=== PATIENT | male | born 1955 | race Caucasian/White ===

== ENCOUNTER 2018-08-24 12:36 | Inpatient (IN) ==
[2018-08-24] MEDS ORDERED: 0.9 % Sodium Chloride 1,000 ML ONE ×2 (12:41→13:01)
[2018-08-24] MEDS ORDERED: Aspirin 81 MG TAB.CHEW ONE (12:41)
[2018-08-24] MEDS ORDERED: *HR* Heparin 5,000 UNIT/ML VIAL ONE (12:41)
[2018-08-24] MEDS ORDERED: Heparin 25,000 UNIT/500 ML D5W 25,000 UNIT/500 ML BAG IVC SCH ×2 (12:45→18:00)
[2018-08-24] MEDS ORDERED: Aspirin 81 MG TAB.CHEW PO ONE (12:45)
[2018-08-24] MEDS ORDERED: *HR* Heparin 5,000 UNIT/ML VIAL IVP PRN ×2 (12:45)
[2018-08-24] MEDS ORDERED: *HR* Heparin 5,000 UNIT/ML VIAL IVP ONE (12:45)
[2018-08-24] MEDS ORDERED: *HR* Ticagrelor 90 MG TABLET PO ONE (12:45)
[2018-08-24] MEDS: *HR* Ticagrelor 90 MG TABLET ONE ×2 (12:46→12:47)
[2018-08-24] MEDS ORDERED: Tirofiban 12.5 MG/250ML 12.5 MG/250 ML BAG ONE (12:50)
--- NOTE | 2018-08-24 12:53 | Cardiology History & Physical ---
Date of Encounter: 08/24/18 Time of Encounter: 12:50 Assessment and Plan (1) Anterior and lateral ST segment elevation Current Visit: Yes Status: Acute The assessment and plan as outlined above was discussed with the patient and/or family members who expressed understanding and agreement. All questions were answered. R/B/A d/w patient and he agrees to proceed with a LHC. No significant past medical hx, now in afib History of Present Illness Chief complaint: chest pain HPI: Mr. Rod is a 63 year old male presents with 3 hor ago chest pain RSCP associated with diaphoresis found to have anterolateral ST elevations. Emergent LHC discussed with patient and he agrees to proceed. R/B/A d/w patient and he agrees to proceed. History brief due to emergent nature of presentation. Past Med Surg Social Fam HX - Past Medical History Medical history: no medical history Psychiatric history: no psych history - Social History Smoking Status: Never smoker Alcohol use: none Drug use: none Medications and Allergies Allergy/AdvReac Type Severity Reaction Status Date / Time vancomycin Allergy Rash Verified 08/24/18 12:39 All Systems Review: The remainder of the systems were reviewed and are negative Physical Examination Vital Signs, Last 4 Hours Temp Pulse Resp BP Pulse Ox 08/24/18 12:39 97.9 F 150 22 149/96 99 General: Conversant, No Apparent Distress HEENT: Atraumatic, Normocephaly, Mucus Membranes Moist Neck: No JVD, Normal carotid pulses Cardiac: Reg Rate and Rhythm, Normal S1 and S2, No Murmur Lungs: Normal Breath Sounds, No Wheeze, Rales, Rhonchi Neuro: Alert and responsive, No focal deficits noted Abdomen: Soft, Non-Tender Skin: No rashes noted on visualized skin Musculoskeletal: No Chest Wall Tenderness Extremities: No Clubbing, No Cyanosis, No Edema, Normal Pulses
[2018-08-24] MEDS ORDERED: *HR* FentaNYL (PF) 100 MCG/2 ML VIAL ONE (12:58)
[2018-08-24] MEDS ORDERED: *HR* Midazolam HCl 2 MG/2 ML VIAL ONE (12:58)
[2018-08-24 13:00] LABS: Basophils # 0.1 K/mcL (0.0-0.2); Basophils % 0.5 %; Eosinophils % 0.3 %; Hematocrit 42.6 % (37.5-50.1); Hemoglobin 14.7 g/dL (12.9-16.9); Immature Granulocytes % 0.3 % (0-4); Lymphocytes # 2.6 K/mcL (0.6-4.6); Lymphocytes % 27.7 %; Mean Corpuscular HGB Conc 34.5 g/dL (31.6-35.5); Mean Corpuscular Hemoglobin 30.9 pg (28.0-33.3); Mean Corpuscular Volume 89.5 fL (83.0-100.0); Mean Platelet Volume 9.2 fL (9.4-12.4); Monocytes # 0.7 K/mcL (0.0-1.3); Monocytes % 7.7 %; Platelet Count 202 K/mcL (140-400); Red Blood Count 4.76 M/mcL (4.19-5.50); Red Cell Distribution Width 12.7 % (11.5-14.5); Segmented Neutrophils % 63.5 %
[2018-08-24] MEDS ORDERED: *HR* Heparin 10,000 UNIT/10 ML VIAL ONE (13:01)
[2018-08-24] MEDS ORDERED: ISOVUE-370 200 ML INFUS..BTL ONE (13:01)
[2018-08-24] MEDS ORDERED: Nitroglycerin 1,000 MCG/10 ML VIAL IV ONE (13:01)
[2018-08-24] MEDS ORDERED: Heparin 1,000 UNITS/500 mL 500 ML ONE (13:01)
--- NOTE | 2018-08-24 13:09 | Emergency Department Note ---
Disposition Clinical Impression: ST elevation myocardial infarction (STEMI) Qualifiers: Involved coronary artery: unspecified coronary artery Qualified Code(s): I21.3 - ST elevation (STEMI) myocardial infarction of unspecified site Disposition: Admitted As Inpatient Condition: Serious Time of Disposition: 12:30 Chest Pain HPI - General Chief Complaint: ED Chest Pain Stated Complaint: stemi Time Seen by Provider: 08/24/18 12:45 Source: patient, EMS Limitations: no limitations Vital Signs Reviewed: Yes Nursing Notes Reviewed: Yes - History of Present Illness HPI Narrative: 63-year-old male presents emergency Department with concerns of acute onset chest pain. Patient states pain started within the past 2-3 hours prior to arrival. Patient reports the pain as a pressure in the center of his chest that does not radiate. Patient denies similar pain in the past. Patient reports associated nausea and diaphoresis. Denies fever, chills, nausea, abdominal pain, diarrhea, vomiting. Patient pain improved with nitroglycerin which was given by EMS, it is now intermittent in the emergency department during the initial evaluation. The custom tailor was contacted immediately after the initial evaluation and was evaluated at bedside by Dr. Faustin. Patient EKG showed A. fib with RVR with ST elevations in leads I, AVL, V2, V3, V4, V5 and V6 with ST depressions in leads 2, 3, aVF. Patient denies history of hypertension, hyperlipidemia, diabetes. And denies history of cardiac disease in the past. Severity scale (1-10): 8 - Related Data Home Medications Medication Instructions Recorded Confirmed Naproxen Sodium [Aleve] 220 mg PO BID PRN 08/24/18 08/24/18 Allergies Allergy/AdvReac Type Severity Reaction Status Date / Time vancomycin Allergy See Verified 08/24/18 17:30 Comments All systems ED: reviewed and negative except as stated. Review of Systems: As Per HPI Chest Pain PMH - Past Medical History Medical history: Reports: no medical history Psychiatric history: Reports: no psych history - Social History Smoking Status: Never smoker Alcohol use: Reports: none Drug use: Reports: none Physical Exam General: Alert and in no acute distress Skin: Warm, dry, intact Head: Normocephalic and atraumatic Neck: Supple, trachea midline and no tenderness Cardiovascular: Irregularly irregular rhythm with a tachycardic rate no murmur, normal perfusion Respiratory: CTAB, no wheezing, cough, or respiratory distress Musculoskeletal: Normal strength, no tenderness, swelling or deformity GI: Soft, nontender, nondistended. Bowel sounds present Neuro: A&O to person, place, time and situation. No focal deficits noted on exam Psychiatric: cooperative and appropriate mood and affect. - General Limitations: no limitations General appearance: alert, in no apparent distress Course Vital Signs Temperature 97.9 F 08/24/18 12:39 Pulse Rate 150 08/24/18 12:39 Respiratory Rate 22 08/24/18 12:39 Blood Pressure 149/96 08/24/18 12:39 O2 Sat by Pulse Oximetry 98 08/24/18 12:39 Temperature 98.0 F 08/25/18 03:38 Pulse Rate 124 08/25/18 06:00 Respiratory Rate 22 08/25/18 06:00 Blood Pressure 104/67 08/25/18 06:00 O2 Sat by Pulse Oximetry 92 08/25/18 06:00 Oxygen Delivery Oxygen Delivery Room Air Chest Pain - MDM Narrative Medical decision making narrative: Dr. Faustin agreed the patient likely had acute STEMI and patient will be admitted to the Logistics Clerk. - Medical Records Medical records reviewed: Yes I reviewed the patient's medical records. - Lab Data Result diagrams: 08/25/18 01:03 08/25/18 01:03 Lab Results 08/24/18 08/24/18 08/24/18 Range/Units 12:41 12:41 12:41 WBC 9.4 (4.3-11.1) K/mcL RBC 4.76 (4.19-5.50) M/mcL Hgb 14.7 (12.9-16.9) g/dL Hct 42.6 (37.5-50.1) % MCV 89.5 (83.0-100.0) fL MCH 30.9 (28.0-33.3) pg MCHC 34.5 (31.6-35.5) g/dL RDW 12.7 (11.5-14.5) % Plt Count 202 (140-400) K/mcL MPV 9.2 L (9.4-12.4) fL Immature Gran % 0.3 (0-4) % Seg Neutrophils % 63.5 % Lymphocytes % 27.7 % Monocytes % 7.7 % Eosinophils % 0.3 % Basophils % 0.5 % Neutrophils # 6.0 (1.6-8.9) K/mcL Lymphocytes # 2.6 (0.6-4.6) K/mcL Monocytes # 0.7 (0.0-1.3) K/mcL Eosinophils # 0.0 (0.0-0.6) K/mcL Basophils # 0.1 (0.0-0.2) K/mcL Sodium 137 (136-145) mEq/L Potassium 3.7 (3.5-5.1) mEq/L Chloride 101 (98-107) mEq/L Carbon Dioxide 27 (23-29) mEq/L BUN 14 (8-23) mg/dL Creatinine 0.85 (0.70-1.30) mg/dL Est GFR ( Amer) > 60 (> 60) Est GFR (Non-Af Amer) > 60 (> 60) BUN/Creatinine Ratio 16 (6-26) Glucose 142 H (70-105) mg/dL Calculated Osmolality 287 (280-300) Calcium 10.0 (8.6-10.3) mg/dL Magnesium 2.2 (1.6-2.6) mg/dL Creatine Kinase 68 (30-223) Units/L Troponin I 0.05 H* (< 0.04) ng/mL Specimen Rejected Volume - EKG Data EKG attestation: Yes I reviewed and interpreted this EKG. EKG results narrative: Atrial fibrillation with a rate of [address] depressions in leads 1, aVL, V2, V3, V4, V5, V6 with ST depressions in leads 2, 3, aVF
[2018-08-24 13:19] LABS: BUN/Creatinine Ratio 16 (6-26); Blood Urea Nitrogen 14 mg/dL (8-23); Carbon Dioxide 27 mEq/L (23-29); Chloride 101 mEq/L (98-107); Creatine Kinase 68 Units/L (30-223); Glucose 142 mg/dL (70-105); Magnesium 2.2 mg/dL (1.6-2.6); Osmolality,Calculated 287 (280-300); Potassium 3.7 mEq/L (3.5-5.1); Sodium 137 mEq/L (136-145); eGFR For Non-African Americans > 60 (> 60)
[2018-08-24 13:21] LABS: Troponin I 0.05 ng/mL (< 0.04)
--- NOTE | 2018-08-24 13:32 | Electrocardiograph Report ---
[address] [place], [place] [address] Test Date: 2018-08-24 Pat Name: Luis A Rod Department: [id number] Room: 10 Gender: M Boat Operator: : 1955 Requested By: Travis Dietz Order Number: [id number] Reading MD: Biju Dubon Measurements Intervals [place] Rate: 157 P: [place]: QRS: -31 QRSD: 94 T: 51 QT: 292 QTc: 472 Interpretive Statements Acute STEMI, anterolateral infarct Atrial fibrillation with rapid V-rate Left axis deviation Electronically Signed On 08-24-2018 13:31:05 EST by Biju Dubon
[2018-08-24] MEDS ORDERED: Tirofiban 12.5 MG/250ML 12.5 MG/250 ML BAG IVC SCH (14:00)
--- NOTE | 2018-08-24 14:11 | Invasive Diagnostic Lab Proc ---
Name: Luis A Rod Date of Study: 08/24/2018 Date: 1955 Ht: 72.0in Medical Record#: [id number] Age: 63 Wt: 180.78lb Gender: Male BSA: 2.04 Order #: [id number] BMI: 24.52 Physicians Procedure Physician: Valeri Faustin MD Referring MD: Referring MD: Staff Name Position Time In [facility] Paulina RN Monitor 12:58 PM Yumiko Ward RT (R) 12:59 PM [facility], Deja RT (R) Scrub 12:59 PM Roverto Valverde RN Sheep Sorter 12:59 PM Young Mariee RN Nurse 12:59 PM Indications Indication STEMI Procedures Performed Procedure L HRT ARTERY/VENTRICLE ANGIO PRQ CARD REVASC OK 1 VSL PRQ CARDIAC ANGIO ADDL ART Pre-Procedure Checklist Informed consent is complete signed and on chart. H&P is on chart. ID band is on and ID verified with patient. Patient NPO for procedure The procedure was described for the patient and questions were answered. ECG is on chart. Rhythm: Atrial Fibrillation Plan of Care Patient will tolerate the procedure without complications. Adequate level of comfort will be maintained. Hemodynamics will remain stable Patient will recover from procedure without complications. Respiratory function will be maintained. Cardiac rhythm will remain stable. Patient temperature will be maintained. Patient and/or family have verbalized understanding of the procedure. Patient Education Chief Complaint/Reason for Test: Cardiac Cath Developmental Category: Adult (18-64 years) Developmentally Appropriate for Age: Yes Learning Barriers: None Education Needs: Procedure Education Method: Verbal Information Taught: Cardiac Cath Educational Evaluation: Able to repeat information Intravenous Access Time IV Size Location DC'd Fluid/Drip Rate Units RN 20g 1 07/31" Patent On Arrival Lt Arm 0.9NaCl ml/hr Allergies vancomycin Vital Signs Time BP (mmHg) HR (bpm) O2 Sat. RR (bpm) LOC 01:00 PM / % 4 = Oriented but drowsy 01:00 PM / % 4 = Oriented but drowsy 01:15 PM / % 4 = Oriented but drowsy 01:00 PM 165 / 115 128 97 % 22 01:05 PM 151 / 110 144 99 % 20 01:10 PM 140 / 92 132 93 % 32 01:15 PM 127 / 94 151 94 % 27 01:20 PM 126 / 108 118 95 % 21 01:25 PM 122 / 81 111 95 % 15 01:31 PM 87 / 63 125 91 % 44 01:33 PM 97 / 78 108 93 % 13 01:35 PM 110 / 84 106 95 % 10 01:40 PM 126 / 73 129 93 % 12 Procedural Medications Time Medication Dose Units Method Given By 12:59 PM Oxygen 2 L/min nasal cannula Roverto Valverde RN 12:59 PM Versed 1 mg Intravenous Roverto Valverde RN 12:59 PM Fentanyl 50 mcg Intravenous Roverto Valverde RN 01:02 PM Lidocaine 2% 10 ml Subcutaneous Valeri Faustin MD 01:04 PM Aggrastat Bolus: 42 ml Intravenous Roverto Valverde RN 01:05 PM Aggrastat 12.5mg/250ml 15 ml/hr Intravenous Roverto Valverde RN 01:08 PM Heparin 1000 units Intravenous Roverto Valverde RN 01:12 PM Fentanyl 25 mcg Intravenous Roverto Valverde RN 01:29 PM Nitroglycerin 100 mcg Intracoronary Michael Faustin MD Denis Score Preprocedure Postprocedure Activity 2- Moves 4 extremities sustained head lift Activity 2- Moves 4 extremities sustained head lift Circulation 2- SBP +/= 20 points of pre-anesthetic level Circulation 2- SBP +/= 20 points of pre-anesthetic level Consciousness 2- Awake and alert oriented x 3 Consciousness 2- Awake and alert oriented x 3 O2 Saturation 2- Able to maintain O2 satruation of 92% on room air O2 Saturation 2- Able to maintain O2 satruation of 92% on room air Respiratory 2- Able to deep breathe and cough well Respiratory 2- Able to deep breathe and cough well Total Score 10 Total Score 10 Contrast Agent: Isovue Diagnostic Contrast: 228 ml Total Contrast: 228 ml Fluoro Dose: 7523 mGy Activated Clotting Time Time Seconds to Clot 01:08 PM 218 01:37 PM 400 Procedure Log Time Note Enter By 12:58 PM Pt arrived to botany laboratory assistant 2 at 12:58 [facility] 12:58 PM Paulina Summers RN Position: Monitor Time in: 12:58 [facility] 12:59 PM Yumiko Ward RT (R) Position: Time in: 12:59 [facility] 12:59 PM Deja Quinonez RT (R) Position: Scrub [facility]: 12:59 [facility] 12:59 PM Roverto Valverde RN Position: Sheep Sorter Time in: 12:59 [facility] 12:59 PM Patient charges- ], Navilyst 3mm J, Pulse Oximetry and ACIST tubing and transducer [facility] 12:59 PM Young Mariee RN Position: Nurse Time in: :59 [facility] 12:59 PM Physician arrived 12:59 [facility] 12:59 PM Meet and greet completed [facility] :59 PM Sign in performed according to hospital policy. Informed consent was obtained. [facility] 12:59 PM Procedure start :59 [facility] 12:59 PM Hair removed from procedure site in procedure lab using clippers. Bilateral groin prepped with Chloraprep by Young Mariee RN, then patient was draped. Skin intact. [facility] 12:59 PM CathStat 12:59 PM Vitals capture started with the following parameters, Patient=Adult, Interval=5 min, Initial Kmjeoepa=482 mmHg, Deflation Rate=5 mmHg, Cuff placed on Right Arm 12:59 PM Time: 12:59 Oxygen on at 2 L/min per nasal cannula by Roverto Valverde RN [facility] 12:59 PM Time: 12:59 Versed 1 mg Intravenous Given by Roverto Valverde RN [facility] 12:59 PM Time: 12:59 Fentanyl 50 mcg Intravenous Given by Roverto Valverde RN [facility] 12:59 PM Recorded ECG: HU=893 Condition=Condition 1 01:00 PM Time: 13:00 Patient comfortable and pain free: Yes [facility] 01:00 PM Time: 13:00LOC: 4 = Oriented but drowsy [facility] 01:00 PM QT=882 bpm, MPSE=896/115 mmhg, SpO2=97.0 %, Resp=22 B/min 01:00 PM Clinical Presentation: [facility] or equivalent [facility] PM Critical cardiac patient with acute OK was brought emergently to the cardiac electroplating laborer for immediate coronary angiography and intervention if clinically indicated. [facility]00 PM Time out was performed according to hospital policy. Conscious sedation and anesthesia was achieved (see medication log with in this report above) [facility] 01:02 PM Time: 13:02 10 ml Lidocaine 2% to right groin Subcutaneous Given by Valeri Faustin MD nini 01:03 PM Micro-Introducer Kit utilized for sheath placement 01:03 PM Pressure channel 1 zeroed. 01:04 PM Access obtained by percutaneous puncture. 6Fr 10cm Terumo [place] sheath placed in right Femoral artery. [id number] 01:04 PM 6Fr XB LAD 3.5 Cordis guide catheter was used to cannulate the PCI vessel successfully. reused? No oumm 01:05 PM Time: 13:04 Aggrastat Bolus: 42 ml Intravenous Given by Roverto Valverde RN Yee pump oumm 01:05 PM WR=812 bpm, NPKV=117/110 mmhg, SpO2=99.0 %, Resp=20 B/min 01:05 PM Time: 13:05 Aggrastat 12.5mg/250ml 15 ml/hr Intravenous Given by Roverto Valverde RN Yee pump [email or web address] 01:06 PM Recorded Pressure: Ao, AX=673, Condition=Condition 1 (Aorta) Ao 124/88/104 01:07 PM .014 BMW Neal 190cm guide wire across target lesion- successful. reused? No 01:07 PM LCA angiography performed in multiple views. tsou 01:08 PM At 13:08 the ACT was 218 seconds. 01:08 PM Time: 13:08 Heparin 1000 units Intravenous Given by Roverto Valverde RN [email or web address] 01:09 PM 2.0 mm x 12 mm Emerge Monorail balloon across target lesion- successful. reused? No :10 PM Balloon inflated @ 6 yazmin for 3 seconds tsoumm 01:10 PM QJ=713 bpm, UQQR=202/92 mmhg, SpO2=93.0 %, Resp=32 B/min 01:10 PM Recorded Pressure: Ao, RK=598, Condition=Condition 1 (Aorta) Ao 110/80/93 01:10 PM Lesion found in Mid LAD. Pre Stenosis: 100 Pre PATRICIA Flow: 0: No Flow/No perfusion tsoumm 01:12 PM Time: 13:12 Fentanyl 25 mcg Intravenous Given by Roverto Valverde RN [email or web address] 01:13 PM .014 BMW Neal 190cm guide wire across target lesion- successful. reused? No tsoumm 01:15 PM KJ=538 bpm, GMAW=760/94 mmhg, SpO2=94.0 %, Resp=27 B/min 01:15 PM Time: 13:00LOC: 4 = Oriented but drowsy joaquin 01:15 PM Time: 13:00 Patient comfortable and pain free: Yes mm 01:20 PM VC=956 bpm, PMUL=983/108 mmhg, SpO2=95.0 %, Resp=21 B/min 01:23 PM Balloon inflated @ 6 yazmin for 10 seconds mm 01:23 PM Balloon catheter removed intact. 01:25 PM IF=697 bpm, KONM=759/81 mmhg, SpO2=95.0 %, Resp=15 B/min 01:26 PM 3.5mm x 16mm Synergy drug-eluting stent across target lesion- successful Lot #[id number] [email or web address] 01:26 PM wire removed from DIAG tsty 01:27 PM Stent deployed @ 9 yazmin for 6 seconds [email or web address] 01:27 PM Stent balloon reinflated @ 14 yazmin for 10 seconds mm 01:28 PM Stent delivery system removed intact. 01:29 PM Time: 13:29 Nitroglycerin 100 mcg Intracoronary Given by Michael Faustin MD ty 01:30 PM Time: 13:15 Patient comfortable and pain free: Yes 01:30 PM Time: 13:15LOC: 4 = Oriented but drowsy tsty 01:31 PM ZP=274 bpm, NIBP=87/63 mmhg, SpO2=91 %, Resp=44 B/min 01:32 PM Guide wire removed intact. 01:32 PM Guide catheter removed intact. joaquin 01:32 PM NIBP STAT measurement started. 01:33 PM MP=942 bpm, NIBP=97/78 mmhg, SpO2=93.0 %, Resp=13 B/min 01:34 PM Recorded Pressure: LV, AI=643, Condition=Condition 1 (Left Ventricle) LV 98/20/26 01:35 PM ZW=748 bpm, GGDZ=101/84 mmhg, SpO2=95.0 %, Resp=10 B/min 01:35 PM Recorded Pressure: LV, Ao, JA=630, Condition=Condition 1 (Left Ventricle) LV 87/39/45, (Aorta) Ao 83/53/71 01:36 PM 5Fr FR 4 catheter inserted over the wire [facility] 01:36 PM Catheter crossed the aortic valve and was selectively placed in the left ventricle. Pressures recorded on pullback for left heart catheterization. 01:36 PM Bolus angiogram of left Ventricle complete: 10 ml/sec for a total of 20 mls tsmm 01:36 PM RCA angiography performed in multiple views. 01:36 PM Recorded Pressure: Ao, BI=455, Condition=Condition 1 (Aorta) Ao 90/76/83 01:37 PM At 13:37 the ACT was 400 seconds. tsmm 01:37 PM Coronary Dominance: right ts 01:37 PM Catheter removed 01:38 PM Bolus angiogram of right Femoral complete: 2 ml/sec for a total of 4 mls ts 01:38 PM Procedure completed at 13:38 08/24/2018 01:38 PM Did you address PATRICIA flow and Dominance? Yes mm 01:39 PM Sign out completed: Radiation Dose 674.78 mGy, 7523.49 cGy/cm2 Fluoro Time: 9.0 Isovue 370 - 200ml contrast 228 ml given by Valeri Faustin MD. Complications: None. The patient was discharged out of the electroplating laborer in stable condition. Cardiac Rehab Consult needed: YesConfirmed administered medications: Yes 01:39 PM Isovue 370 - 200ml,2 Bottle(s) used. mm 01:40 PM EA=467 bpm, YOUX=486/73 mmhg, SpO2=93.0 %, Resp=12 B/min 01:40 PM Arterial sheath pulled, Angio-seal closure device used and was Successful [id number] S/N. tsoumm 01:40 PM Estimated Blood Loss: less than 20cc tsoummers 01:40 PM Post ECG Atrial Fibrillation tsoummers 01:40 PM Post Blood Pressure 126/73 tsoummers 01:40 PM Information taught Cardiac Cath, PCI, and Angioseal tsoummers 01:40 PM Education needs Procedure, Plan of Care, Disease Process, and Responsibilities of Patient in Care tsoummers 01:40 PM Learning barriers :None tsoummers 01:41 PM Education Methods Verbal tsoummers 01:41 PM Education evaluation Able to repeat information oumm 01:41 PM Site status No bleeding/hematoma - Rt Groin as reported by Sites, Deja RT (R) at 13:41 tsoummers 01:41 PM Opsite applied tsoumm 01:41 PM Plavix, Effient or Brilinta given Yes tsoummers 01:41 PM Delay to floor No tsoummers 01:41 PM Family placed in consult room. oumm 01:41 PM 180 brilinta administered in ED oummers 01:47 PM Mid/Distal Left Anterior Descending Coronary Artery and diagonal branches with 100% stenosis. If graft is supplying this area, 0 % stenosis tsoummers 01:47 PM Lesion found in 1st Diagonal. Pre Stenosis: 100 Pre PATRICIA Flow: 0: No Flow/No perfusion tsoummers 01:47 PM Lesion found in Proximal LAD. Pre Stenosis: 25 Pre PATRICIA Flow: tsoummers 01:54 PM Lesion found in Proximal RCA. Pre Stenosis: 25 Pre PATRICIA Flow: tsoummers 01:54 PM Lesion found in Right PDA. Pre Stenosis: 99 Pre PATRICIA Flow: tsoummers 01:54 PM Right Coronary, Right Posterior Descending Arteries with Right Posterolateral and Acute Marginal branches with 99 % stenosis. If graft is supplying this area, 0 % stenosis oumm 01:59 PM Report given to Mayela ROSEN [facility] PM [facility]: 13:59 [facility] Complications Complication None Hemodynamics Pressures Site Systolic/A Wave Diastolic/V Wave Mean AO 124 88 104 AO 110 80 93 LV 98 20 26 LV 87 39 45 AO 83 53 71 AO 90 76 83 Post Procedure Information Blood Pressure: 126/73 mmHg Rhythm: Atrial Fibrillation Post procedural instructions were given Closure Device Time Device Success/Fail 08/24/2018 1:40:00 PM Angio-Seal VIP Successful Site Checks Time Location Status Staff Sheath In? Note 01:41 PM Rt Groin No bleeding/hematoma Sites, Deja RT (R) Pulses Updated by Paulina Summers RN on 08/24/2018 2:02:22 PM electronically signed on 08/24/2018 2:02:43 PM with status of Final
[2018-08-24 15:00] LABS: INR 1.1; Prothrombin Time 12.1 Seconds (9.4-12.1)
[2018-08-24] MEDS ORDERED: Ondansetron 4 MG/2 ML VIAL IVP PRN (15:29)
[2018-08-24 15:34] LABS: Activated Partial Thrombo Time 133.6 Seconds (26.0-36.0)
[2018-08-24 15:35] LABS: Heparin anti-factor XA UFH 0.77 IU/mL (0.30-0.70)
[2018-08-24] MEDS: *HR* Ticagrelor 90 MG TABLET PO SCH (20:04)
[2018-08-24] MEDS ORDERED: Perflutren Lipid Microsphere 1.3 ML in 0.9 % Sodium Chloride 8.7 ML IVP ONE (20:13)
[2018-08-25 01:14] LABS: Basophils % 0.2 %; Eosinophils % 0.1 %; Hematocrit 40.8 % (37.5-50.1); Hemoglobin 14.2 g/dL (12.9-16.9); Immature Granulocytes % 0.4 % (0-4); Lymphocytes # 2.9 K/mcL (0.6-4.6); Lymphocytes % 27.6 %; Mean Corpuscular HGB Conc 34.8 g/dL (31.6-35.5); Mean Corpuscular Hemoglobin 30.5 pg (28.0-33.3); Mean Corpuscular Volume 87.7 fL (83.0-100.0); Mean Platelet Volume 9.3 fL (9.4-12.4); Monocytes # 0.8 K/mcL (0.0-1.3); Monocytes % 7.8 %; Neutrophils # 6.7 K/mcL (1.6-8.9); Platelet Count 201 K/mcL (140-400); Red Blood Count 4.65 M/mcL (4.19-5.50); Red Cell Distribution Width 12.9 % (11.5-14.5); Segmented Neutrophils % 63.9 %
[2018-08-25 01:32] LABS: BUN/Creatinine Ratio 16 (6-26); Blood Urea Nitrogen 12 mg/dL (8-23); Calcium 9.3 mg/dL (8.6-10.3); Carbon Dioxide 23 mEq/L (23-29); Chloride 103 mEq/L (98-107); Glucose 141 mg/dL (70-105); Osmolality,Calculated 280 (280-300); Potassium 4.2 mEq/L (3.5-5.1); Sodium 134 mEq/L (136-145); eGFR For Non-African Americans > 60 (> 60)
[2018-08-25] MEDS: *HR* Ticagrelor 90 MG TABLET PO SCH ×2 (07:37→20:06)
[2018-08-25] MEDS ORDERED: Aspirin 81 MG TAB.CHEW PO SCH (09:00)
[2018-08-25] MEDS ORDERED: Metoprolol XL (24 HR) Succ 25 MG TAB.ER.24H PO SCH (11:15)
--- NOTE | 2018-08-25 11:45 | Cardiology Progress Note ---
Date of Encounter: 08/25/18 Time of Encounter: 11:43 Assessment and Plan (1) Anterior and lateral ST segment elevation Current Visit: Yes Status: Acute Presented 08/24/18 as anterior and lateral STEMI, taken emergently to lab technician. S/P C 08/24/18--Patient had successful PTCA/Drug-Eluting Stent placement in the mid LAD. Patient had successful PTCA in the Diagonal. Remaining 99% RPDA lesion needs staged inpt--plan for tomorrow. DAPT (ASA and Brilinta) uninterrupted. Pt verbalizes understanding. Continue BB, Statin. TTE LVEF 30-35%. Severe segmental left ventricular systolic dysfunction. Mildly dilated LV. Normal RV. Mild to moderate MR. Mild TR. (2) Ischemic cardiomyopathy Current Visit: Yes Status: Acute TTE LVEF 30-35%. Severe segmental left ventricular systolic dysfunction. STEMI s/p revascularization. Continue BB. Will attempt to add ACEi prior to d/c if BP will tolerate. BP currently marginal and need to uptitrate BB for AF. 11 beat run NSVT on tele. Increased BB. Plan to repeat limited TTE in 40 days as outpt to re-evaluate EF. If EF remains <35%, will refer for ICD. Will consider lifevest prior to d/c if pt has recurrence of NSVT despite BB increase. (3) CAD (coronary artery disease) Current Visit: Yes Status: Acute S/P PCI. Continue ASA, Brilinta, Statin, BB. Qualifiers: Coronary Disease-Associated Artery/Lesion type: [place] artery [place] vs. transplanted heart: [place] heart Associated angina: angina presence unspecified Qualified Code(s): I25.10 - Atherosclerotic heart disease of [place] coronary artery without angina pectoris (4) NSVT (nonsustained ventricular tachycardia) Current Visit: Yes Status: Acute 11 beat run on tele. K 4.2. Mag 2.2. BB increased this AM. If recurrence will consider lifevest at d/c. (5) A-fib Current Visit: Yes Status: Acute Presented in A-Fib, unclear chronicity, new diagnosis. 12 hr tele AVG HR 115, A-Fib. HR at bedside 90s-low 100s. Currently on Lopressor 12.5mg BID. Given ICMP, will switch to Toprol XL 25mg daily, first dose now. [id number] (Age, CAD, CHF). High CVA risk. Currently on heparin gtt. Discussed NOACs vs Coumadin prior to d/c. Will dick check NOAC. Qualifiers: Atrial fibrillation type: unspecified Qualified Code(s): I48.91 - Unspecified atrial fibrillation Discussion w patient/family: The assessment and plan as outlined above was discussed with the patient and/or family members who expressed understanding and agreement. All questions were answered. Thank you for involving us in the care of your patient. Please call with any questions. I will discuss all the above with Dr. Marks and make changes as necessary. Subjective Principal diagnosis: STEMI Interval history: S/P [facility] 08/24/18--Patient had successful PTCA/Drug-Eluting Stent placement in the mid LAD. Patient had successful PTCA in the Diagonal. Remainined 99% RPDA lesion needs staged. TTE LVEF 30-35%. Severe segmental left ventricular systolic dysfunction. Mildly dilated left ventricle. Indeterminate diastolic function. Normal right ventricular structure and function. Mild to moderate mitral regurgitation. Mild tricuspid regurgitation. No pulmonary hypertension. Pt denies chest pain. Reports intermittent dyspnea overnight. Objective Vital Signs, Last 4 Hours Temp Pulse Resp BP Pulse Ox 08/25/18 11:22 98.2 F 08/25/18 10:00 102 17 103/87 96 08/25/18 09:00 101 22 107/82 96 08/25/18 08:00 111 23 111/96 93 Vital Signs Temp Pulse Resp BP Pulse Ox 08/25/18 11:22 98.2 F 08/25/18 10:00 102 17 103/87 96 08/25/18 09:00 101 22 107/82 96 08/25/18 08:00 111 23 111/96 93 08/25/18 07:40 97.7 F 08/25/18 07:00 110 18 101/77 94 08/25/18 06:00 124 22 104/67 92 08/25/18 05:00 90 22 85/55 96 08/25/18 04:00 111 23 102/78 96 08/25/18 03:40 102 08/25/18 03:38 98.0 F 08/25/18 03:00 100 18 94/72 96 08/25/18 02:00 111 14 114/94 96 08/25/18 01:00 129 16 95/77 97 08/25/18 00:00 136 16 107/85 94 08/24/18 23:59 132 08/24/18 23:31 97.9 F 08/24/18 23:00 118 17 108/88 91 08/24/18 22:00 118 19 99/79 92 08/24/18 21:00 141 20 97/83 94 08/24/18 20:29 112 08/24/18 20:09 97.9 F 08/24/18 20:00 134 11 104/59 98 08/24/18 19:00 134 27 116/78 98 08/24/18 18:00 142 24 101/92 96 08/24/18 17:00 130 16 105/70 95 08/24/18 16:15 105 20 83/64 95 08/24/18 16:10 96.8 F L 08/24/18 15:30 118 20 101/86 95 08/24/18 15:06 147 20 109/85 94 08/24/18 14:45 97.6 F 143 16 115/85 96 08/24/18 14:22 124 20 105/88 95 08/24/18 14:15 124 16 105/88 95 08/24/18 14:00 142 20 105/88 97 08/24/18 13:55 113 20 95/71 95 08/24/18 12:39 97.9 F 150 22 149/96 99 Intake and Output 08/24/18 08/25/18 08/25/18 23:59 07:59 15:59 Intake Total 577 / 577 104 / 104 352 / 352 Output Total 865 / 865 100 / 100 0 / 0 Balance -288 / -288 4 / 4 352 / 352 Intake: IV Fluids 177 / 177 104 / 104 112 / 112 Heparin 25,000 UNIT/500 ML D5W 104 / 104 112 / 112 25,000 unit In 500 ml @ 12 UNIT /KG/HR 19.595 mls/hr IVC .Q24H KAYLEN Rx#:[id number] Aggrastat 12.5 MG/250 ML 12.5 177 / 177 mg In 250 ml @ 0.15 MCG/KG/MIN 14.696 mls/hr IVC .Q17H1M KAYLEN Rx#:[id number] Oral 400 / 400 240 / 240 Output: Urine 715 / 715 100 / 100 0 / 0 Catheter 150 / 150 Other: Meal Breakfast Percent of Meal Consumed 40% Weight 84.9 kg Patient Weight 08/25/18 23:59 Weight 84.9 kg General: Conversant, No Apparent Distress HEENT: Atraumatic, Normocephaly, Mucus Membranes Moist Neck: No JVD, Normal carotid pulses Cardiac: Other (irregularly irregular) Lungs: Normal Breath Sounds, No Wheeze, Rales, Rhonchi Neuro: Alert and responsive, No focal deficits noted Abdomen: Soft, Non-Tender Skin: No rashes noted on visualized skin Musculoskeletal: No Chest Wall Tenderness Extremities: No Clubbing, No Cyanosis, No Edema, Normal Pulses Results 08/25/18 01:03 08/25/18 01:03 Lab Results 08/24/18 08/24/18 08/24/18 12:41 12:41 14:35 WBC 9.4 Hgb 14.7 Hct 42.6 Plt Count 202 INR 1.1 APTT 133.6 H* Sodium 137 Potassium 3.7 Chloride 101 Carbon Dioxide 27 BUN 14 Creatinine 0.85 Glucose 142 H Calcium 10.0 Magnesium 2.2 Troponin I 0.05 H* 08/25/18 08/25/18 01:03 01:03 WBC 10.5 Hgb 14.2 Hct 40.8 Plt Count 201 INR APTT Sodium 134 L Potassium 4.2 Chloride 103 Carbon Dioxide 23 BUN 12 Creatinine 0.76 Glucose 141 H Calcium 9.3 Magnesium Troponin I Short CBC 08/25/18 08/24/18 Range/Units 01:03 12:41 WBC 10.5 9.4 (4.3-11.1) K/mcL Hgb 14.2 14.7 (12.9-16.9) g/dL Hct 40.8 42.6 (37.5-50.1) % Plt Count 201 202 (140-400) K/mcL Neutrophils # 6.7 6.0 (1.6-8.9) K/mcL BMP 08/25/18 08/24/18 Range/Units 01:03 12:41 Sodium 134 L 137 (136-145) mEq/L Potassium 4.2 3.7 (3.5-5.1) mEq/L Chloride 103 101 (98-107) mEq/L Carbon Dioxide 23 27 (23-29) mEq/L BUN 12 14 (8-23) mg/dL Creatinine 0.76 0.85 (0.70-1.30) mg/dL Glucose 141 H 142 H (70-105) mg/dL Calcium 9.3 10.0 (8.6-10.3) mg/dL Cardiac Enzymes 08/24/18 Range/Units 12:41 Troponin I 0.05 H* (< 0.04) ng/mL Impressions Echocardiogram 08/24/18 13:47 Impressions: LVEF 30-35%. Severe segmental left ventricular systolic dysfunction. Mildly dilated left ventricle. Indeterminate diastolic function. Normal right ventricular structure and function. Mild to moderate mitral regurgitation. Mild tricuspid regurgitation. No pulmonary hypertension. Left Ventricular Wall Motion: Rest Echo Findings The apical inferior, mid inferior, basal inferior, basal anterior, mid inferior septal, basal inferior septal, apical lateral and basal anterior septal [place] were hypokinetic. The apex, apical anterior, mid anterior, apical septal and mid anterior septal [place] were akinetic. All other wall segments showed normal motion. Findings: Study Quality * Technically adequate exam. ECG Findings * Atrial fibrillation. Left Ventricle * LVEF 30-35%. * Normal LV wall thickness. * Mildly dilated left ventricle. * Severe segmental left ventricular systolic dysfunction. * Indeterminate diastolic function. * There is no LV thrombus. * Definity echo contrast was used. Right Ventricle * Normal right ventricular structure and function. Left Atrium * Normal left atrial size. Right Atrium * Normal right atrial size. Interatrial Septum * Interatrial septum not well evaluated. Aortic Valve * Trileaflet aortic valve. * No aortic stenosis. * No aortic regurgitation. Mitral Valve * Normal mitral valve structure. * No mitral stenosis. * Mild to moderate mitral regurgitation. Tricuspid Valve * Normal tricuspid valve structure. * No tricuspid stenosis. * Mild tricuspid regurgitation. * Estimated RVSP is 30 mmHg. * Estimated RA pressure is 8 mmHg. * No pulmonary hypertension. Pulmonic Valve * Pulmonic valve is not well visualized. * No pulmonic stenosis. * Trace pulmonic regurgitation. Aorta * Normally sized aortic root. Pericardium * The pericardium appears normal. IVC * The IVC is dilated. * > 50% respiratory change Active Medications Aspirin (Aspirin) 81 mg PO DAILY KAYLEN Stop: 02/24/19 09:01 Last Admin: 08/25/18 07:37 Dose: 81 mg Atorvastatin Calcium (Lipitor) 40 mg PO HS KAYLEN Stop: 02/24/19 21:01 Heparin Sodium (Porcine) (Heparin) 4,000 unit IVP Q6HR PRN PRN Reason: SEE COMMENTS Stop: 02/23/19 12:46 Heparin Sodium (Porcine) (Heparin) 2,000 unit IVP Q6H PRN PRN Reason: SEE COMMENTS Stop: 02/23/19 12:46 Heparin Sodium/Dextrose (Heparin 25,000 Unit/500 Ml D5w) 25,000 unit in 500 mls @ 19.595 mls/hr IVC .Q24H KAYLEN; Protocol Stop: 02/23/19 18:01 Last Titration: 08/25/18 08:51 Dose: 9.92 unit/kg/hr, 16.195 mls/hr Metoprolol Succinate (Toprol Xl) 25 mg PO DAILY [facility] Stop: 02/24/19 11:16 Ondansetron HCl (Zofran) 4 mg IVP Q6HR PRN; Protocol PRN Reason: Nausea Stop: 02/23/19 15:30 Ticagrelor (Brilinta) 90 mg PO BID [facility]LEN Stop: 02/23/19 21:01 Last Admin: 08/25/18 07:37 Dose: 90 mg - Imaging and Cardiology Echo: report reviewed Cardiac cath: report reviewed - EKG Interpretation EKG results cardiology: personally reviewed, other (12 hr tele AVG HR 115, A- Fib, NSVT, longest run 11 beats) Consult Discharge Plan - Plan Instructions: Chest Pain (ED) Referrals: NONE,PCP [Primary Care Provider] -
[2018-08-25] MEDS ORDERED: Heparin 25,000 UNIT/500 ML D5W 25,000 UNIT/500 ML BAG IVC SCH (17:24)
[2018-08-25] MEDS ORDERED: Perflutren Lipid Microsphere 1.3 ML in 0.9 % Sodium Chloride 8.7 ML IVP ONE (17:24)
[2018-08-25] MEDS ORDERED: *HR* Heparin 5,000 UNIT/ML VIAL IVP PRN ×2 (17:24)
--- NOTE | 2018-08-25 19:07 | Electrocardiograph Report ---
[address] [place], [place] [address] Test Date: 2018-08-24 Pat Name: Luis A Rod Department: 109 Room: 10 Gender: [employer]: : [id number] Requested By: Valeri Faustin Order Number: [id number] Reading MD: Elmo Madrigal Measurements Intervals [place] Rate: 139 P: MA: 0 QRS: 146 QRSD: 102 T: -88 QT: 297 QTc: 378 Interpretive Statements ATRIAL FIBRILLATION WITH RAPID VENTRICULAR RESPONSE INDETERMINATE AXIS INFERIOR MYOCARDIAL INFARCTION, PROBABLY RECENT ANTEROSEPTAL MYOCARDIAL INFARCTION, PROBABLY RECENT ACUTE CT Electronically Signed On 08-25-2018 19:05:50 EST by Elmo Madrigal
[2018-08-25] MEDS ORDERED: *HR* Metoprolol 5 MG/5 ML VIAL IVP PRN (20:26)
[2018-08-26] MEDS ORDERED: *HR* Digoxin 0.5 MG/2 ML AMPUL IVP ONE (08:54)
[2018-08-26] MEDS: *HR* Ticagrelor 90 MG TABLET PO SCH ×2 (09:07→22:03)
[2018-08-26] MEDS: Aspirin 81 MG TAB.CHEW PO SCH (09:07)
[2018-08-26] MEDS: Metoprolol XL (24 HR) Succ 25 MG TAB.ER.24H PO SCH (09:07)
[2018-08-26 09:35] LABS: Basophils % 0.3 %; Eosinophils % 0.1 %; Hematocrit 39.5 % (37.5-50.1); Hemoglobin 13.8 g/dL (12.9-16.9); Immature Granulocytes % 0.3 % (0-4); Lymphocytes # 2.3 K/mcL (0.6-4.6); Lymphocytes % 22.3 %; Mean Corpuscular HGB Conc 34.9 g/dL (31.6-35.5); Mean Corpuscular Volume 88.8 fL (83.0-100.0); Mean Platelet Volume 9.5 fL (9.4-12.4); Monocytes # 0.9 K/mcL (0.0-1.3); Monocytes % 8.3 %; Neutrophils # 7.2 K/mcL (1.6-8.9); Platelet Count 173 K/mcL (140-400); Red Blood Count 4.45 M/mcL (4.19-5.50); Red Cell Distribution Width 12.8 % (11.5-14.5); Segmented Neutrophils % 68.7 %
--- NOTE | 2018-08-26 09:42 | Event Note ---
Date of Encounter: 08/26/18 Time of Encounter: 09:41 - Cardiology Event Note [facility] today for staged PCI of right PDA. R/B/A discussed. Pt agrees to proceed. Remains A-Fib RVR, HR 110s. BP will not tolerate BB increase. Discussed and reviewed with Dr. Marks. Will load with IV Digoxin--0.5mg once then 0.25mg x 2 doses.
[2018-08-26 10:00] LABS: BUN/Creatinine Ratio 18 (6-26); Blood Urea Nitrogen 14 mg/dL (8-23); Calcium 9.1 mg/dL (8.6-10.3); Carbon Dioxide 23 mEq/L (23-29); Chloride 104 mEq/L (98-107); Glucose 109 mg/dL (70-105); Osmolality,Calculated 281 (280-300); Sodium 135 mEq/L (136-145); eGFR For Non-African Americans > 60 (> 60)
[2018-08-26] MEDS ORDERED: 0.9 % Sodium Chloride 1,000 ML ONE ×2 (10:17→10:18)
[2018-08-26] MEDS ORDERED: Heparin 1,000 UNITS/500 mL 500 ML ONE (10:17)
[2018-08-26] MEDS ORDERED: Nitroglycerin 1,000 MCG/10 ML VIAL IV ONE (10:17)
[2018-08-26] MEDS ORDERED: *HR* Heparin 10,000 UNIT/10 ML VIAL ONE (10:17)
[2018-08-26] MEDS ORDERED: ISOVUE-370 200 ML INFUS..BTL ONE (10:17)
--- NOTE | 2018-08-26 12:00 | Pre-Sedation Evaluation ---
Pre-sedation evaluation - Pre-sedation checklist Date of procedure: 08/26/18 Procedure: heart cath Recent Vitals: Last Vital Signs Temp 98.1 F 08/26/18 11:59 Pulse 95 08/26/18 10:00 Resp 18 08/26/18 10:00 BP 108/69 08/26/18 10:00 Pulse Ox 95 08/26/18 10:00 H&P (including ROS) documented in medical record: Yes Previous reaction to sedatives/anesthetics: No Dietary Status: NPO after Midnight Airway Assessment: Patient can open mouth completely, TMJ function normal, Micrognathia (under-bite, receding chin) absent, Neck with adequate range of motion Dentition: No loose teeth or bridges Possible difficult airway: No ASA Classification *see protocol: CLASS II-Mild systemic disease Plan of Care: Pt appropriate candidate for procedure/moderate/conscious sedation, Risks/benefits of procedure/sedation discussed w/ patient/family Cardiac Registry (Cardio Only) - Functional Capacity Functional Capacity: < 4 METS - Clincal Frailty Scale Clinical Frailty Scale: Vulnerable
[2018-08-26] MEDS ORDERED: *HR* FentaNYL (PF) 100 MCG/2 ML VIAL ONE (12:04)
[2018-08-26] MEDS ORDERED: *HR* Midazolam HCl 2 MG/2 ML VIAL ONE (12:04)
[2018-08-26] MEDS ORDERED: *HR* Bivalirudin 250 MG VIAL IVC ONE (12:21)
[2018-08-26] MEDS ORDERED: *HR* Atropine Sulfate 1 MG/10 ML SYRINGE ONE (12:22)
[2018-08-26] MEDS ORDERED: Nitroglycerin Spray 4.9 GM BOTTLE ONE (13:02)
--- NOTE | 2018-08-26 13:07 | Invasive Diagnostic Lab Proc ---
Name: Luis A Rod Date of Study: 08/26/2018 Date: 1955 Ht: 72.8in Medical Record#: [id number] Age: 63 Wt: 186.07lb Gender: Male BSA: 2.08 Order #: [id number] BMI: 24.66 Physicians Procedure Physician: Sylvia Garay MD, [facility] Referring MD: Referring MD: Staff Name Position Time In Sites, Deja RT (R) Scrub 11:49 AM Alverto Dee RT (R) Monitor 11:50 AM Giovana Grady RN Drafter Heating And Ventilating 11:50 AM Mayela Tejada RN Monitor 12:05 PM Indications Indication Staged PCI Procedures Performed Procedure PRQ CARD NJ STENT W/ANGIO 1 VSL Pre-Procedure Checklist Informed consent is complete signed and on chart. H&P is on chart. ID band is on and ID verified with patient. Patient NPO for procedure The procedure was described for the patient and questions were answered. Blood Pressure: 108/69 ECG is on chart. Rhythm: Atrial Fibrillation Plan of Care Patient will tolerate the procedure without complications. Adequate level of comfort will be maintained. Hemodynamics will remain stable Patient will recover from procedure without complications. Respiratory function will be maintained. Cardiac rhythm will remain stable. Patient temperature will be maintained. Patient and/or family have verbalized understanding of the procedure. Patient Education Chief Complaint/Reason for Test: Cardiac Cath Developmental Category: Geriatric (65+ years) Developmentally Appropriate for Age: Yes Learning Barriers: None Education Needs: Procedure Education Method: Verbal Information Taught: Cardiac Cath Educational Evaluation: Able to repeat information Intravenous Access Time IV Size Location DC'd Fluid/Drip Rate Units RN 10:35 AM 18g 1 1/4" Patent On Arrival Rt Arm 0.9NaCl 50 ml/hr Allergies vancomycin Vital Signs Time BP (mmHg) HR (bpm) O2 Sat. RR (bpm) LOC 10:36 AM 108 / 69 95 95 % 18 5 = Fully awake and oriented or at pre-proc level 11:50 AM / % 5 = Fully awake and oriented or at pre-proc level 12:04 PM / % 5 = Fully awake and oriented or at pre-proc level 12:04 PM / % 4 = Oriented but drowsy 12:19 PM / % 4 = Oriented but drowsy 12:34 PM / % 4 = Oriented but drowsy 12:01 PM 117 / 88 94 97 % 20 12:05 PM 119 / 83 106 96 % 31 12:10 PM 108 / 70 98 93 % 16 12:15 PM 119 / 77 100 93 % 19 12:20 PM 109 / 81 99 94 % 22 12:25 PM 110 / 78 90 95 % 12:30 PM 124 / 88 117 93 % 30 12:35 PM 116 / 87 101 96 % 22 12:40 PM 120 / 87 123 91 % 28 Procedural Medications Time Medication Dose Units Method Given By 11:58 AM Oxygen 2 L/min nasal cannula Giovana Grady RN 12:11 PM Versed 2 mg Intravenous Giovana Grady RN 12:11 PM Fentanyl 50 mcg Intravenous Giovana Grady RN 12:16 PM Lidocaine 2% 19 ml Subcutaneous Sylvia Garay MD, FAC 12:17 PM Angiomax 0.75mg/kg bolus: 13 ml Intravenous Giovana Grady RN 12:17 PM Aggrastat 5mg/100ml 30 ml/hr Intravenous Giovana Grady RN 12:37 PM Nitroglycerin 200 mcg Intracoronary Sylvia Garay MD, FACC 12:37 PM Nitroglycerin 200 mcg Intracoronary Sylvia Garay MD, FACC 12:38 PM Nitroglycerin 200 mcg Intracoronary Sylvia Garay MD, [facility] ASA Classification: CLASS II- Mild systemic disease (i.e. well-controlled diabetes, hypertension, asthma, cigarette smoking) Denis Score Preprocedure Postprocedure Activity 2- Moves 4 extremities sustained head lift Activity 2- Moves 4 extremities sustained head lift Circulation 2- SBP +/= 20 points of pre-anesthetic level Circulation 2- SBP +/= 20 points of pre-anesthetic level Consciousness 2- Awake and alert oriented x 3 Consciousness 2- Awake and alert oriented x 3 O2 Saturation 2- Able to maintain O2 satruation of 92% on room air O2 Saturation 2- Able to maintain O2 satruation of 92% on room air Respiratory 2- Able to deep breathe and cough well Respiratory 2- Able to deep breathe and cough well Total Score 10 Total Score 10 Contrast Agent: Isovue Diagnostic Contrast: 109 ml Total Contrast: 109 ml Fluoro Dose: 7063 mGy Procedure Log Time Note Enter By 11:41 AM Patient charges- Angio tray pack, Navilyst 3mm J, Pulse Oximetry and ACIST tubing and transducer tsites 11:49 AM Pt arrived to section laborer 2 at 11:49 [email or web address] 11:50 AM Deja Quinonez RT (R) Position: Scrub Time in: 11:49 [email or web address] 11:50 AM Alverto Dee RT (R) Position: Monitor Time in: 11:50 [email or web address] 11:50 AM Giovana Grady RN Position: Drafter Heating And Ventilating Time in: 11:50 [email or web address] 11:50 AM Case Delayed No [email or web address] 11:50 AM Time: 11:50 Patient comfortable and pain free: Yes [email or web address] 11:50 AM Time: 11:50LOC: 5 = Fully awake and oriented or at pre-proc level [email or web address] 11:54 AM Physician arrived 11:54 [email or web address] 11:58 AM Meet and greet completed [email or web address] 11:58 AM Sign in performed according to hospital policy. Informed consent was obtained. [email or web address] 11:58 AM CathStat 11:58 AM Procedure start 11:58 [email or web address] 11:59 AM Time: 11:58 Oxygen on at 2 L/min per nasal cannula by Giovana Grady RN [email or web address] 11:59 AM Coronary Dominance: right [email or web address] 11:59 AM Lesion found in Right PDA. Pre Stenosis: 99 Pre PATRICIA Flow: [email or web address] 11:59 AM Inflation device was opened. [email or web address] 12:00 PM Recorded ECG: ZR=368 Condition=Condition 1 12:00 PM Vitals capture started with the following parameters, Patient=Adult, Interval=5 min, Initial Dycfpwso=445 mmHg, Deflation Rate=5 mmHg, Cuff placed on Right Arm 12:01 PM HR=94 bpm, CXDT=667/88 mmhg, SpO2=97.0 %, Resp=20 B/min, Comment=afib 12:04 PM Time: 12:03 Patient comfortable and pain free: Yes scoates 12:04 PM Time: 12:04LOC: 5 = Fully awake and oriented or at pre-proc level scoates 12:05 PM Recorded ECG: SR=684 Condition=Condition 1 12:05 PM MR=945 bpm, URFL=014/83 mmhg, SpO2=96.0 %, Resp=31 B/min, Comment=afib 12:05 PM Mayela Tejada RN Position: Monitor Time in: 12:05 to relieve Alverto Dee RT (R) scoates 12:07 PM ASA Class CLASS II- Mild systemic disease (i.e. well-controlled diabetes, hypertension, asthma, cigarette smoking) scoates 12:08 PM Lesion found in Right PDA. Pre Stenosis: 99 Pre PATRICIA Flow: 3: Complete and Brisk Flow/Perfusion scoates 12:10 PM Right Coronary, Right Posterior Descending Arteries with Right Posterolateral and Acute Marginal branches with 99 % stenosis. If graft is supplying this area, 0 % stenosis scoates 12:10 PM HR=98 bpm, JCZO=757/70 mmhg, SpO2=93.0 %, Resp=16 B/min, Comment=afib 12:10 PM Hair removed from procedure site in procedure lab using clippers. Bilateral groin prepped with Chloraprep by Alverto Dee (R), then patient was draped. Skin intact. scoates 12:11 PM Time: 12:11 Versed 2 mg Intravenous Given by Giovana Grady RN scoates 12:11 PM Time: 12:11 Fentanyl 50 mcg Intravenous Given by Giovana Grady RN scoates 12:13 PM Time out was performed according to hospital policy. Conscious sedation and anesthesia was achieved (see medication log with in this report above) scoates 12:13 PM Pressure channel 1 zeroed. 12:15 PM QV=718 bpm, MDYW=459/77 mmhg, SpO2=93.0 %, Resp=19 B/min, Comment=afib 12:16 PM Time: 12:16 19 ml Lidocaine 2% to left groin Subcutaneous Given by Sylvia Garay MD, [facility] scoates 12:16 PM Access obtained by percutaneous puncture. 6Fr 11cm Terumo Acosta sheath placed in left Femoral artery. [id number] scoates 12:16 PM 6Fr JR4 [place] Bright-Tip guide catheter was used to cannulate the PCI vessel successfully. reused? No scoates 12:17 PM Time: 12:17 Angiomax 0.75mg/kg bolus: 13 ml Intravenous Given by Giovana Grady RN Yee pump scoates 12:17 PM Time: 12:17 Aggrastat 5mg/100ml 30 ml/hr Intravenous Given by Giovana Grady RN Yee pump scoates 12:18 PM Recorded Pressure: Ao, HR=91, Condition=Condition 1 (Aorta) Ao 82/55/68 12:19 PM Time: 12:04 Patient comfortable and pain free: Yes scoates 12:19 PM Time: 12:04LOC: 4 = Oriented but drowsy scoates 12:20 PM RCA angiography performed in multiple views. scoates 12:20 PM HR=99 bpm, TJFO=670/81 mmhg, SpO2=94.0 %, Resp=22 B/min, Comment=afib 12:20 PM .014 PT Graphix 182cm guide wire across target lesion- successful. reused? No down rt PDA scoates 12:23 PM .014 Bennet 190cm guide wire across target lesion- successful. reused? No wire down the RPAV scoates 12:24 PM 2.0 mm x 12 mm Emerge Monorail balloon across target lesion- successful. reused? No scoates 12:25 PM HR=90 bpm, DUSZ=140/78 mmhg, SpO2=95.0 %, Comment=afib 12:26 PM Balloon inflated @ 10 yazmin for 20 seconds scoates 12:26 PM Balloon inflated @ 12 yazmin for 15 seconds scoates 12:27 PM Recorded Pressure: Ao, UN=391, Condition=Condition 1 (Aorta) Ao 108/74/89 12:29 PM balloon repositioned down the PAV scoates 12:29 PM Balloon inflated @ 15 yazmin for 20 seconds scoates 12:30 PM QZ=860 bpm, TNII=068/88 mmhg, SpO2=93.0 %, Resp=30 B/min, Comment=afib 12:32 PM Balloon catheter removed intact. scoates 12:32 PM 3.5mm x 16mm Synergy drug-eluting stent across target lesion- successful Lot #[id number] scoates 12:34 PM Time: 12:19LOC: 4 = Oriented but drowsy scoates 12:34 PM Time: 12:19 Patient comfortable and pain free: Yes scoates 12:34 PM Stent deployed @ 12 yazmin for 30 seconds scoates 12:35 PM Stent balloon reinflated @ 12 yazmin for 10 seconds scoates 12:35 PM guide wire removed from PAV scoates 12:35 PM JC=188 bpm, BYBX=438/87 mmhg, SpO2=96.0 %, Resp=22 B/min, Comment=afib 12:35 PM Stent delivery system removed intact. scoates 12:37 PM Time: 12:37 Nitroglycerin 200 mcg Intracoronary Given by Sylvia Garay MD, [facility] scoates 12:37 PM Time: 12:37 Nitroglycerin 200 mcg Intracoronary Given by Sylvia Garay MD, [facility] scoates 12:38 PM Time: 12:38 Nitroglycerin 200 mcg Intracoronary Given by Sylvia Garay MD, [facility] scoates 12:40 PM CB=536 bpm, JZVY=869/87 mmhg, SpO2=91.0 %, Resp=28 B/min 12:41 PM Guide catheter removed intact. scoates 12:41 PM Stent delivery system removed intact. scoates 12:41 PM Guide wire removed intact. scoates 12:42 PM Bolus angiogram of Femoral complete: 4 ml/sec for a total of 7 mls scoates 12:43 PM Procedure completed at 12:43 08/26/2018 scoates 12:43 PM Did you address PATRICIA flow and Dominance? Yes scoates 12:43 PM Coronary Dominance: right scoates 12:43 PM Sign out completed: Radiation Dose 483 mGy, 7063 cGy/cm2 Fluoro Time: 6.9 Isovue 370 - 200ml contrast 109 ml given by Sylvia Garay MD, [facility]. Complications: None. 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 Cardiac Rehab Consult needed: YesConfirmed administered medications: Yes scoates 12:43 PM Isovue 370 - 200ml,1 Bottle(s) used. scoates 12:44 PM Sheath left in place to be pulled on floor/holding area scoates 12:44 PM Estimated Blood Loss: less than 20cc scoates 12:44 PM Post ECG Atrial Fibrillation scoates 12:44 PM Post Blood Pressure 120/87 scoates 12:44 PM 12:44 Post Pulses Bilateral DP & PT 2+ scoates 12:44 PM Information taught Cardiac Cath and PCI scoates 12:49 PM Information taught PCI scoates 12:49 PM Education needs Procedure, Plan of Care, and Responsibilities of Patient in Care scoates 12:49 PM Learning barriers :None scoates 12:49 PM Education Methods Verbal scoates 12:49 PM Education evaluation Able to repeat information scoates 12:49 PM Time: 12:34 Patient comfortable and pain free: Yes scoates 12:49 PM Time: 12:34LOC: 4 = Oriented but drowsy scoates 12:49 PM Site status No bleeding/hematoma - Rt Groin as reported by Sites, Deja RT (R) at 12:49 scoates 12:49 PM Opsite applied scoates 12:49 PM Report given to Jose ROSEN Pt taken to ICU Room #10. 12:49 scoates 12:50 PM Plavix, Effient or Brilinta given pt had in ER this am scoates 12:50 PM Delay to floor No scoates 12:50 PM Patient out of room: 12:50 scoates 12:50 PM Family placed in consult room. scoates 12:51 PM Complications: None scoates 12:52 PM Arterial sheath pulled using manual compression by ICU nurse when appropriate scoates Complications Complication None None Hemodynamics Pressures Site Systolic/A Wave Diastolic/V Wave Mean AO 82 55 68 AO 108 74 89 Post Procedure Information Blood Pressure: 120/87 mmHg Rhythm: Atrial Fibrillation Post procedural instructions were given Closure Device Time Device Success/Fail 08/26/2018 12:52:00 PM Manual Compression- sheath to be pulled in ICU when appropriate Site Checks Time Location Status Staff Sheath In? Note 12:49 PM Rt Groin No bleeding/hematoma Sites, Deja RT (R) Pulses Time Site Pre-Procedure Post-Procedure Note 08/26/2018 10:35:00 AM Bilateral DP & PT 2+ 08/26/2018 10:36:00 AM Bilateral radial 2+ 12:44:00 PM Bilateral DP & PT 2+ Updated by Mayela Bal RN on 08/26/2018 12:56:04 PM electronically signed on 08/26/2018 12:58:20 PM with status of Final
[2018-08-26] MEDS ORDERED: *HR* Heparin 5,000 UNIT/ML VIAL IVP ONE ×2 (13:39→23:22)
[2018-08-26] MEDS ORDERED: *HR* Heparin 5,000 UNIT/ML VIAL IVP PRN ×4 (13:39→23:22)
--- NOTE | 2018-08-26 13:39 | Event Note ---
Date of Encounter: 08/26/18 Time of Encounter: 13:37 - Cardiology Event Note Eliquis dick check at [facility] was $95/mo. Pt's states since pt has never been on scheduled medication before, she does not think they have all of his insurance on file. They are agreeable to start Eliquis with 30 day free card and determine dick once they take insurance cards to [facility]. Will start Eliquis tonight. Pt will be on triple therapy (ASA, Brilinta, Eliquis) x 1 month, then will plan to stop ASA as outpt after 1 month.
[2018-08-26] MEDS ORDERED: Heparin 25,000 UNIT/500 ML D5W 25,000 UNIT/500 ML BAG IVC SCH ×2 (13:45→23:30)
[2018-08-26] MEDS: *HR* Digoxin 0.5 MG/2 ML AMPUL IVP SCH ×2 (15:17→22:03)
[2018-08-26 19:28] LABS: Hematocrit 40.2 % (37.5-50.1); Hemoglobin 13.6 g/dL (12.9-16.9); Mean Corpuscular HGB Conc 33.8 g/dL (31.6-35.5); Mean Corpuscular Hemoglobin 30.6 pg (28.0-33.3); Mean Corpuscular Volume 90.5 fL (83.0-100.0); Mean Platelet Volume 9.7 fL (9.4-12.4); Platelet Count 171 K/mcL (140-400); Red Blood Count 4.44 M/mcL (4.19-5.50); Red Cell Distribution Width 13.1 % (11.5-14.5)
[2018-08-26 19:38] LABS: INR 1.2; Prothrombin Time 13.2 Seconds (9.4-12.1)
[2018-08-26] MEDS: Apixaban 5 MG TABLET PO SCH (22:03)
[2018-08-27] MEDS: Ondansetron 4 MG/2 ML VIAL IVP PRN (00:42)
--- NOTE | 2018-08-27 08:45 | Electrocardiograph Report ---
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
[2018-08-27] MEDS: Apixaban 5 MG TABLET PO SCH ×2 (08:49→20:22)
[2018-08-27] MEDS: Metoprolol XL (24 HR) Succ 25 MG TAB.ER.24H PO SCH (08:49)
[2018-08-27] MEDS: *HR* Digoxin 0.125 MG TABLET PO SCH (08:49)
[2018-08-27] MEDS: *HR* Ticagrelor 90 MG TABLET PO SCH ×2 (08:49→20:23)
[2018-08-27] MEDS: Aspirin 81 MG TAB.CHEW PO SCH (08:49)
[2018-08-27] MEDS ORDERED: Metoprolol XL (24 HR) Succ 25 MG TAB.ER.24H PO ONE (09:15)
--- NOTE | 2018-08-27 09:19 | Cardiology Progress Note ---
Date of Encounter: 08/27/18 Time of Encounter: 09:20 Assessment and Plan (1) Anterior and lateral ST segment elevation Current Visit: Yes Status: Acute Per Cardiology: Presented 08/24/18 as anterior and lateral STEMI, taken emergently to laborer wrecking and salvaging. S/P LHC 08/24/18--Patient had successful PTCA/Drug-Eluting Stent placement in the mid LAD. Patient had successful PTCA in the Diagonal. Remaining 99% RPDA lesion status post staged PCI/[place]J. DAPT (ASA and Brilinta) uninterrupted. Pt verbalizes understanding. On BB, Statin. Chest pain-free. (2) A-fib Current Visit: Yes Status: Acute Per Cardiology: Presented in A-Fib, unclear chronicity, new diagnosis. 12 hr tele AVG HR 94, A- Fib. HR at bedside 90s-120s. On Toprol-XL 25 mg by mouth daily. Status post IV dig load. Now on by mouth digoxin 0.125mg PO daily. Systolic blood pressure in the 100's. Will titrate beta scott to Toprol-XL 37.5 mg by mouth daily and monitor heart rate and blood pressure response. Currently on his chemotherapy 2 L saturation 91-93%-- denies history of COPD, reports remote history of nicotine abuse, euvolemic on exam. [id number] 3 (Age, CAD, CHF). High CVA risk. Patient now on triple therapy. Denies any active bleeding or blood loss. Per previous note: "Eliquis dick check at [facility] was $95/mo. Pt's states since pt has never been on scheduled medication before, she does not think they have all of his insurance on file. They are agreeable to start Eliquis with 30 day free card and determine dick once they take insurance cards to [facility]. Will start Eliquis tonight. Pt will be on triple therapy (ASA, Brilinta, Eliquis) x 1 month, then will plan to stop ASA as outpt after 1 month". Qualifiers: Atrial fibrillation type: unspecified Qualified Code(s): I48.91 - Unspecified atrial fibrillation (3) Ischemic cardiomyopathy Current Visit: Yes Status: Acute Per Cardiology: TTE LVEF 30-35%. Severe segmental left ventricular systolic dysfunction. STEMI s/p revascularization. Continue BB. Will attempt to add ACEi prior to d/c if BP will tolerate. BP currently marginal and need to uptitrate BB for AF. Few episodes NSVT on tele with longest 4 beats. Increased BB. Plan to repeat limited TTE in 40 days as outpt to re-evaluate EF. If EF remains <35%, will refer for ICD. Will consider lifevest prior to d/c if pt has recurrence of NSVT despite BB increase. Discussion w patient/family: The assessment and plan as outlined above was discussed with the patient and/or family members who expressed understanding and agreement. All questions were answered. Thank you for involving us in the care of your patient. Please call with any questions. Subjective Principal diagnosis: STEMI Interval history: Denies any chest pain, short of breath, palpitations. Denies any active bleeding or blood loss. Anxious to go home. Objective Vital Signs, Last 4 Hours Temp Pulse Resp BP Pulse Ox 08/27/18 08:52 97.6 F 93 20 106/73 93 08/27/18 07:11 97.6 F 93 20 106/73 93 General: Conversant, No Apparent Distress HEENT: Atraumatic, Normocephaly, Mucus Membranes Moist Neck: No JVD, Normal carotid pulses Cardiac: No Murmur, Other (Irregularly irregular) Lungs: Normal Breath Sounds, No Wheeze, Rales, Rhonchi Neuro: Alert and responsive, No focal deficits noted Abdomen: Soft, Non-Tender Skin: No rashes noted on visualized skin, Other (Bilateral groin sites dry and intact, no hematoma, no bleeding, mild ecchymosis noted to both sites, left and right PT and DP pulses 1+ palpable) Musculoskeletal: No Chest Wall Tenderness Extremities: No Clubbing, No Cyanosis, No Edema, Normal Pulses Results 08/26/18 18:58 08/26/18 09:22 Lab Results Laboratory Tests 08/24/18 08/26/18 08/26/18 12:41 09:22 09:22 Hgb 13.8 Hct 39.5 INR Creatinine 0.76 Est GFR (Non-Af Amer) > 60 Magnesium 2.2 Troponin I 0.05 H* 08/26/18 18:58 Hgb Hct INR 1.2 Creatinine Est GFR (Non-Af Amer) Magnesium Troponin I ITS Impressions Echocardiogram 08/24/18 13:47 Impressions: LVEF 30-35%. Severe segmental left ventricular systolic dysfunction. Mildly dilated left ventricle. Indeterminate diastolic function. Normal right ventricular structure and function. Mild to moderate mitral regurgitation. Mild tricuspid regurgitation. No pulmonary hypertension. Left Ventricular Wall Motion: Rest Echo Findings The apical inferior, mid inferior, basal inferior, basal anterior, mid inferior septal, basal inferior septal, apical lateral and basal anterior septal [place] were hypokinetic. The apex, apical anterior, mid anterior, apical septal and mid anterior septal l[place] were akinetic. All other wall segments showed normal motion. Findings: Study Quality * Technically adequate exam. ECG Findings * Atrial fibrillation. Left Ventricle * LVEF 30-35%. * Normal LV wall thickness. * Mildly dilated left ventricle. * Severe segmental left ventricular systolic dysfunction. * Indeterminate diastolic function. * There is no LV thrombus. * Definity echo contrast was used. Right Ventricle * Normal right ventricular structure and function. Left Atrium * Normal left atrial size. Right Atrium * Normal right atrial size. Interatrial Septum * Interatrial septum not well evaluated. Aortic Valve * Trileaflet aortic valve. * No aortic stenosis. * No aortic regurgitation. Mitral Valve * Normal mitral valve structure. * No mitral stenosis. * Mild to moderate mitral regurgitation. Tricuspid Valve * Normal tricuspid valve structure. * No tricuspid stenosis. * Mild tricuspid regurgitation. * Estimated RVSP is 30 mmHg. * Estimated RA pressure is 8 mmHg. * No pulmonary hypertension. Pulmonic Valve * Pulmonic valve is not well visualized. * No pulmonic stenosis. * Trace pulmonic regurgitation. Aorta * Normally sized aortic root. Pericardium * The pericardium appears normal. IVC * The IVC is dilated. * > 50% respiratory change Active Medications Apixaban (Eliquis) 5 mg PO BID KAYLEN Stop: 02/25/19 21:01 Last Admin: 08/27/18 08:49 Dose: 5 mg Aspirin (Aspirin) 81 mg PO DAILY KAYLEN Stop: 02/24/19 09:01 Last Admin: 08/27/18 08:49 Dose: 81 mg Atorvastatin Calcium (Lipitor) 80 mg PO HS KAYLEN Stop: 02/25/19 21:01 Last Admin: 08/26/18 22:02 Dose: 80 mg Digoxin (Lanoxin) 0.125 mg PO DAILY KAYLEN Stop: 02/26/19 09:01 Last Admin: 08/27/18 08:49 Dose: 0.125 mg Metoprolol Succinate (Toprol Xl) 12.5 mg PO ONCE ONE Stop: 08/27/18 09:16 Metoprolol Succinate (Toprol Xl) 37.5 mg PO DAILY [facility] Stop: 02/27/19 09:01 Ondansetron HCl (Zofran) 4 mg IVP Q6HR PRN; Protocol PRN Reason: Nausea Stop: 02/23/19 15:30 Last Admin: 08/27/18 00:42 Dose: 4 mg Ticagrelor (Brilinta) 90 mg PO BID [facility] Stop: 02/23/19 21:01 Last Admin: 08/27/18 08:49 Dose: 90 mg - Imaging and Cardiology Echo: report reviewed Cardiac cath: report reviewed - EKG Interpretation EKG results cardiology: other (Average heart rate on telemetry past 12 hours 94. Remains A. fib. A few episodes of nonsustained VT with longest being 4 beats.) Consult Discharge Plan - Plan Instructions: Chest Pain (ED) Referrals: Josh Ha CNP [Advanced Practice Nurse] - (Office will call the patient home with follow up appointment) Shad Macdonald MD [Primary Care Provider] - 09/02/18 2:30 pm
[2018-08-27 09:27] LABS: Basophils % 0.2 %; Eosinophils % 0.3 %; Hematocrit 36.8 % (37.5-50.1); Hemoglobin 12.6 g/dL (12.9-16.9); Immature Granulocytes % 0.3 % (0-4); Lymphocytes # 1.5 K/mcL (0.6-4.6); Lymphocytes % 15.5 %; Mean Corpuscular HGB Conc 34.2 g/dL (31.6-35.5); Mean Corpuscular Volume 90.6 fL (83.0-100.0); Mean Platelet Volume 9.7 fL (9.4-12.4); Monocytes # 0.6 K/mcL (0.0-1.3); Monocytes % 6.1 %; Neutrophils # 7.6 K/mcL (1.6-8.9); Platelet Count 149 K/mcL (140-400); Red Blood Count 4.06 M/mcL (4.19-5.50); Red Cell Distribution Width 12.6 % (11.5-14.5); Segmented Neutrophils % 77.6 %
[2018-08-27 09:46] LABS: BUN/Creatinine Ratio 18 (6-26); Blood Urea Nitrogen 15 mg/dL (8-23); Calcium 8.9 mg/dL (8.6-10.3); Carbon Dioxide 22 mEq/L (23-29); Chloride 101 mEq/L (98-107); Glucose 150 mg/dL (70-105); Osmolality,Calculated 276 (280-300); Sodium 131 mEq/L (136-145); eGFR For Non-African Americans > 60 (> 60)
[2018-08-27] MEDS ORDERED: Furosemide 20 MG TABLET PO SCH (10:45)
[2018-08-27] MEDS ORDERED: Furosemide 20 MG/2 ML VIAL IVP ONE (11:07)
[2018-08-27] MEDS: Furosemide 20 MG/2 ML VIAL IVP SCH (20:22)
[2018-08-27] MEDS ORDERED: Acetaminophen 325 MG TABLET PO ONE (20:54)
[2018-08-28 05:12] LABS: BUN/Creatinine Ratio 19 (6-26); Blood Urea Nitrogen 16 mg/dL (8-23); Calcium 9.4 mg/dL (8.6-10.3); Carbon Dioxide 27 mEq/L (23-29); Chloride 101 mEq/L (98-107); Glucose 102 mg/dL (70-105); Osmolality,Calculated 281 (280-300); Potassium 4.1 mEq/L (3.5-5.1); Sodium 135 mEq/L (136-145); eGFR For Non-African Americans > 60 (> 60)
[2018-08-28] MEDS ORDERED: Furosemide 20 MG/2 ML VIAL IVP ONE (08:29)
[2018-08-28] MEDS ORDERED: Metoprolol XL (24 HR) Succ 25 MG TAB.ER.24H PO SCH (09:00)
[2018-08-28] MEDS: Aspirin 81 MG TAB.CHEW PO SCH (09:09)
[2018-08-28] MEDS: *HR* Digoxin 0.125 MG TABLET PO SCH (09:09)
[2018-08-28] MEDS: *HR* Ticagrelor 90 MG TABLET PO SCH ×2 (09:09→20:43)
[2018-08-28] MEDS: Apixaban 5 MG TABLET PO SCH ×2 (09:09→20:43)
--- NOTE | 2018-08-28 12:11 | Cardiology Progress Note ---
Date of Encounter: 08/28/18 Time of Encounter: 10:00 Assessment and Plan (1) Anterior and lateral ST segment elevation Current Visit: Yes Status: Acute Per Cardiology: -Presented 08/24/18 as anterior and lateral STEMI, taken emergently to laborer cook house. S/P C 08/24/18--Patient had successful PTCA/Drug-Eluting Stent placement in the mid LAD. Patient had successful PTCA in the Diagonal. Remaining 99% RPDA lesion status post staged PCI/[place]J. -DAPT (ASA and Brilinta) uninterrupted. Pt verbalizes understanding. On BB, Statin. -Chest pain-free. -Will continue to monitor. (2) Ischemic cardiomyopathy Current Visit: Yes Status: Acute Per Cardiology: -TTE LVEF 30-35%. Severe segmental left ventricular systolic dysfunction. -STEMI s/p revascularization. Continue BB. -Previously, Few episodes NSVT on tele with longest 4 beats, none noted overnight. -Will attempt to add ACEi prior to d/c if BP will tolerate. BP currently marginal and need to uptitrate BB for AF. -Plan to repeat limited TTE in 40 days as outpt to re-evaluate EF. If EF remains <35%, will refer for ICD. -Discussed with , recommend life vest prior to discharge. Order placed. (3) A-fib Current Visit: Yes Status: Acute Per Cardiology: -Presented in A-Fib, unclear chronicity, new diagnosis. 12 hr tele AVG HR 103, A-Fib. HR at bedside 90s-100s. On Toprol-XL 37.25 mg by mouth daily. Status post IV dig load. Now on by mouth digoxin 0.125mg PO daily. -Systolic blood pressure in the 100's. -[id number] 3 (Age, CAD, CHF). High CVA risk. Patient now on triple therapy. Denies any active bleeding or blood loss. -Per previous note: "Eliquis dick check at [facility] was $95/mo. Pt's states since pt has never been on scheduled medication before, she does not think they have all of his insurance on file. They are agreeable to start Eliquis with 30 day free card and determine dick once they take insurance cards to [facility]. Will start Eliquis tonight. Pt will be on triple therapy (ASA, Brilinta, Eliquis) x 1 mon th, then will plan to stop ASA as outpt after 1 month". -Will continue to monitor, will attempt to uptitrate BB as BP will allow for better rate control. Qualifiers: Atrial fibrillation type: unspecified Qualified Code(s): I48.91 - Unspecified atrial fibrillation (4) Systolic CHF Current Visit: Yes Status: Acute Per cardiology: -Chest x-ray suggestive of CHF. -Requiring O2, not normally on at home. -Was started on IV lasix and put out about 1.5L overnight. -Reports symptom improvement and O2 requirements decreasing. -Will continue IV lasix until euvolemic. -Will continue to monitor. Qualifiers: Heart failure chronicity: acute Qualified Code(s): I50.21 - Acute systolic (congestive) heart failure Discussion w patient/family: The assessment and plan as outlined above was discussed with the patient and/or family members who expressed understanding and agreement. All questions were answered. Thank you for involving us in the care of your patient. Please call with any questions. Discussed and reviewed with . Subjective Principal diagnosis: STEMI Interval history: Patient reports shortness of breath mildly improved today. Denies chest pain. Reports some indigestion. Objective Vital Signs, Last 4 Hours Temp Pulse Resp BP Pulse Ox 08/28/18 10:57 98.1 F 108 20 107/77 91 General: Conversant, No Apparent Distress HEENT: Atraumatic, Normocephaly, Mucus Membranes Moist Neck: No JVD, Normal carotid pulses Cardiac: Normal S1 and S2, No Murmur, Other (Irregularly irregular) Lungs: Other (Left lower lobe rhonchi noted. ) Neuro: Alert and responsive, No focal deficits noted Abdomen: Soft, Non-Tender Skin: No rashes noted on visualized skin, Other (Mild bilateral groin site ecchymosis noted, no hematoma. ) Musculoskeletal: No Chest Wall Tenderness Extremities: No Clubbing, No Cyanosis, No Edema, Normal Pulses Results 08/27/18 09:17 08/28/18 03:58 Lab Results Impressions Chest X-Ray 08/28/18 06:00 IMPRESSION: Persistent congestive heart failure with worsening aeration left lung base. D/ / 08/28/2018 07:40:45 Ga Odell MD / lanre Interpreting Provider: Ga Odell MD Active Medications Acetaminophen (Tylenol) 650 mg PO Q6HR PRN PRN Reason: Fever Stop: 02/27/19 12:07 Apixaban (Eliquis) 5 mg PO BID [facility] Stop: 02/25/19 21:01 Last Admin: 08/28/18 09:09 Dose: 5 mg Aspirin (Aspirin) 81 mg PO DAILY [facility] Stop: 02/24/19 09:01 Last Admin: 08/28/18 09:09 Dose: 81 mg Atorvastatin Calcium (Lipitor) 80 mg PO HS [facility] Stop: 02/25/19 21:01 Last Admin: 08/27/18 20:23 Dose: 80 mg Digoxin (Lanoxin) 0.125 mg PO DAILY [facility] Stop: 02/26/19 09:01 Last Admin: 08/28/18 09:09 Dose: 0.125 mg Furosemide (Lasix) 20 mg IVP BID [facility] Stop: 02/26/19 21:01 Last Admin: 08/27/18 20:22 Dose: 20 mg Metoprolol Succinate (Toprol Xl) 37.5 mg PO DAILY [facility] Stop: 02/27/19 09:01 Last Admin: 08/28/18 09:09 Dose: 37.5 mg Omeprazole (Prilosec) 20 mg PO BIDAC [facility]; Protocol Stop: 02/27/19 16:31 Ondansetron HCl (Zofran) 4 mg IVP Q6HR PRN; Protocol PRN Reason: Nausea Stop: 02/23/19 15:30 Last Admin: 08/27/18 00:42 Dose: 4 mg Potassium Chloride (Potassium Chloride) 20 meq PO DAILY [facility] Stop: 02/27/19 09:01 Last Admin: 08/28/18 09:09 Dose: 20 meq Ticagrelor (Brilinta) 90 mg PO BID [facility] Stop: 02/23/19 21:01 Last Admin: 08/28/18 09:09 Dose: 90 mg Laboratory Tests 08/28/18 03:58 Creatinine 0.83 - Imaging and Cardiology Chest Xray: report reviewed Echo: report reviewed Cardiac cath: report reviewed - EKG Interpretation EKG results cardiology: other (Telemetry reviewed with average HR previous 12 hours noted to be 103, a.fib. PVCs, couplets noted.) Consult Discharge Plan - Plan Instructions: Chest Pain (ED) Referrals: Josh Ha CNP [Advanced Practice Nurse] - (Office will call the patient home with follow up appointment) Shad Macdonald MD [Primary Care Provider] - 09/02/18 2:30 pm
[2018-08-28] MEDS ORDERED: Metoprolol XL (24 HR) Succ 25 MG TAB.ER.24H PO ONE (14:13)
[2018-08-28] MEDS: Furosemide 20 MG/2 ML VIAL IVP SCH (20:43)
[2018-08-29] MEDS: Acetaminophen 325 MG TABLET PO PRN ×2 (01:23→20:58)
[2018-08-29] MEDS: Apixaban 5 MG TABLET PO SCH ×2 (08:39→19:53)
[2018-08-29] MEDS: *HR* Ticagrelor 90 MG TABLET PO SCH ×2 (08:40→19:54)
[2018-08-29] MEDS: *HR* Digoxin 0.125 MG TABLET PO SCH (08:40)
[2018-08-29] MEDS: Aspirin 81 MG TAB.CHEW PO SCH (08:40)
[2018-08-29] MEDS: Furosemide 20 MG/2 ML VIAL IVP SCH ×2 (08:40→19:54)
[2018-08-29 08:47] LABS: Basophils % 0.4 %; Eosinophils # 0.1 K/mcL (0.0-0.6); Eosinophils % 1.4 %; Hematocrit 39.6 % (37.5-50.1); Hemoglobin 13.7 g/dL (12.9-16.9); Immature Granulocytes % 0.6 % (0-4); Lymphocytes # 1.4 K/mcL (0.6-4.6); Lymphocytes % 19.7 %; Mean Corpuscular HGB Conc 34.6 g/dL (31.6-35.5); Mean Corpuscular Hemoglobin 30.6 pg (28.0-33.3); Mean Corpuscular Volume 88.4 fL (83.0-100.0); Mean Platelet Volume 10.2 fL (9.4-12.4); Monocytes # 0.7 K/mcL (0.0-1.3); Neutrophils # 4.9 K/mcL (1.6-8.9); Platelet Count 217 K/mcL (140-400); Red Blood Count 4.48 M/mcL (4.19-5.50); Red Cell Distribution Width 12.8 % (11.5-14.5); Segmented Neutrophils % 67.9 %
[2018-08-29 09:06] LABS: BUN/Creatinine Ratio 24 (6-26); Blood Urea Nitrogen 19 mg/dL (8-23); Carbon Dioxide 26 mEq/L (23-29); Chloride 99 mEq/L (98-107); Glucose 105 mg/dL (70-105); Osmolality,Calculated 281 (280-300); Potassium 3.5 mEq/L (3.5-5.1); Sodium 134 mEq/L (136-145); eGFR For Non-African Americans > 60 (> 60)
--- NOTE | 2018-08-29 10:31 | Electrocardiograph Report ---
[address] [place], [place] [address] Test Date: 2018-08-26 Pat Name: Luis A Rod Department: [id number] Room: 2N01 Gender: M Depalletizer Operator: : [id number] Requested By: Sylvia Garay Order Number: [id number] Reading MD: Alma Giles Measurements Intervals [place] Rate: 115 P: AK: 0 QRS: -22 QRSD: 93 T: 117 QT: 362 QTc: 430 Interpretive Statements ATRIAL FIBRILLATION WITH RAPID VENTRICULAR RESPONSE ANTEROLATERAL MYOCARDIAL INFARCTION, PROBABLY RECENT ACUTE OK Electronically Signed On 08-29-2018 10:29:56 EST by Alma Giles
[2018-08-29] MEDS: Metoprolol XL (24 HR) Succ 50 MG TAB.ER.24H PO SCH (10:35)
--- NOTE | 2018-08-29 10:49 | Cardiology Progress Note ---
Date of Encounter: 08/29/18 Time of Encounter: 10:46 Assessment and Plan (1) Anterior and lateral ST segment elevation Current Visit: Yes Status: Acute Per Cardiology: -Presented 08/24/18 as anterior and lateral STEMI, taken emergently to label paster. S/P C 08/24/18--Patient had successful PTCA/Drug-Eluting Stent placement in the mid LAD. Patient had successful PTCA in the Diagonal. Remaining 99% RPDA lesion status post staged PCI/[place]. -DAPT (ASA and Brilinta) uninterrupted. Pt verbalizes understanding. On BB, Statin. -Chest pain-free. -Will continue to monitor. (2) Ischemic cardiomyopathy Current Visit: Yes Status: Acute Per Cardiology: -TTE LVEF 30-35%. Severe segmental left ventricular systolic dysfunction. -STEMI s/p revascularization. Continue BB. -Previously, Few episodes NSVT on tele with longest 4 beats, none noted overnight. -Will attempt to add ACEi prior to d/c if BP will tolerate. BP currently marginal and need to uptitrate BB for AF. -Plan to repeat limited TTE in 40 days as outpt to re-evaluate EF. If EF remains <35%, will refer for ICD. -Discussed with , recommend life vest prior to discharge. Order placed. At bedside. (3) A-fib Current Visit: Yes Status: Acute Per Cardiology: -Presented in A-Fib, unclear chronicity, new diagnosis. 12 hr tele AVG HR 109, A-Fib. HR at bedside 90s-100s. On Toprol-XL 50 mg by mouth daily. Status post IV dig load. Now on by mouth digoxin 0.125mg PO daily. -Systolic blood pressure in the 100's. -[id number] 3 (Age, CAD, CHF). High CVA risk. Patient now on triple therapy. Denies any active bleeding or blood loss. -Per previous note: "Eliquis dick check at [facility] was $95/mo. Pt's states since pt has never been on scheduled medication before, she does not think they have all of his insurance on file. They are agreeable to start Eliquis with 30 day free card and determine dick once they take insurance cards to [facility]. Will start Eliquis tonight. Pt will be on triple therapy (ASA, Brilinta, Eliquis) x 1 month, then will plan to stop ASA as outpt after 1 month". -Will continue to monitor, will attempt to uptitrate BB as BP will allow for better rate control. Qualifiers: Atrial fibrillation type: unspecified Qualified Code(s): I48.91 - Unspecified atrial fibrillation (4) Systolic CHF Current Visit: Yes Status: Acute Per cardiology: -Chest x-ray suggestive of CHF. -Requiring O2, not normally on at home, however O2 requirements improving. -Was started on IV lasix and put out about 1.5L overnight.Currently net negative ~1L. -Reports symptom improvement. -Unable to further titrate lasix due to BP. -BNP today 1067. -Will continue IV lasix until euvolemic. -Will continue to monitor. Qualifiers: Heart failure chronicity: acute Qualified Code(s): I50.21 - Acute systolic (congestive) heart failure Discussion w patient/family: The assessment and plan as outlined above was discussed with the patient and/or family members who expressed understanding and agreement. All questions were answered. Thank you for involving us in the care of your patient. Please call with any questions. Discussed and reviewed with . Subjective Principal diagnosis: STEMI Interval history: Patient reports shortness of breath improved today. Denies chest pain. Reports had episode of shortness of breath last night. Objective Vital Signs, Last 4 Hours Temp Pulse Resp BP Pulse Ox 08/29/18 08:53 108 99/68 93 08/29/18 07:38 92 08/29/18 07:23 96.8 F L 115 21 104/92 93 General: Conversant, No Apparent Distress HEENT: Atraumatic, Normocephaly, Mucus Membranes Moist Neck: No JVD, Normal carotid pulses Cardiac: Normal S1 and S2, No Murmur, Other (Irregularly irregular) Lungs: Normal Breath Sounds, No Wheeze, Rales, Rhonchi Neuro: Alert and responsive, No focal deficits noted Abdomen: Soft, Non-Tender Skin: No rashes noted on visualized skin Musculoskeletal: No Chest Wall Tenderness Extremities: No Clubbing, No Cyanosis, No Edema, Normal Pulses Results 08/29/18 08:25 08/29/18 08:25 Lab Results Active Medications Acetaminophen (Tylenol) 650 mg PO Q6HR PRN PRN Reason: Fever Stop: 02/27/19 12:07 Last Admin: 08/29/18 01:23 Dose: 650 mg Apixaban (Eliquis) 5 mg PO BID [facility] Stop: 02/25/19 21:01 Last Admin: 08/29/18 08:39 Dose: 5 mg Aspirin (Aspirin) 81 mg PO DAILY [facility] Stop: 02/24/19 09:01 Last Admin: 08/29/18 08:40 Dose: 81 mg Atorvastatin Calcium (Lipitor) 80 mg PO HS [facility] Stop: 02/25/19 21:01 Last Admin: 08/28/18 20:43 Dose: 80 mg Digoxin (Lanoxin) 0.125 mg PO DAILY [facility] Stop: 02/26/19 09:01 Last Admin: 08/29/18 08:40 Dose: 0.125 mg Diphenhydramine HCl (Benadryl) 25 mg PO HS PRN PRN Reason: Insomnia Stop: 02/28/19 10:47 Furosemide (Lasix) 20 mg IVP BID [facility] Stop: 02/26/19 21:01 Last Admin: 08/29/18 08:40 Dose: 20 mg Metoprolol Succinate (Toprol Xl) 50 mg PO DAILY [facility] Stop: 02/28/19 09:01 Omeprazole (Prilosec) 20 mg PO BIDAC [facility]; Protocol Stop: 02/27/19 16:31 Last Admin: 08/29/18 08:40 Dose: 20 mg Ondansetron HCl (Zofran) 4 mg IVP Q6HR PRN; Protocol PRN Reason: Nausea Stop: 02/23/19 15:30 Last Admin: 08/27/18 00:42 Dose: 4 mg Potassium Chloride (Potassium Chloride) 20 meq PO DAILY [facility] Stop: 02/27/19 09:01 Last Admin: 08/29/18 08:40 Dose: 20 meq Ticagrelor (Brilinta) 90 mg PO BID [facility] Stop: 02/23/19 21:01 Last Admin: 08/29/18 08:40 Dose: 90 mg Laboratory Tests 08/29/18 08/29/18 08:25 08:25 Creatinine 0.80 B-Natriuretic Peptide 1067 H - Imaging and Cardiology Chest Xray: report reviewed Echo: report reviewed Cardiac cath: report reviewed - EKG Interpretation EKG results cardiology: other (Telemetry reviewed with average HR previous 12 hours noted to be 109, a.fib. PVCs, couplets noted.) Consult Discharge Plan - Plan Instructions: Chest Pain (ED) Referrals: Josh Ha CNP [Advanced Practice Nurse] - (Office will call the patient home with follow up appointment) Shad Macdonald MD [Primary Care Provider] - 09/02/18 2:30 pm
[2018-08-30] MEDS: *HR* Digoxin 0.125 MG TABLET PO SCH (08:08)
[2018-08-30] MEDS: Aspirin 81 MG TAB.CHEW PO SCH (08:09)
[2018-08-30] MEDS: Furosemide 20 MG/2 ML VIAL IVP SCH ×2 (08:09→20:01)
[2018-08-30] MEDS: Metoprolol XL (24 HR) Succ 50 MG TAB.ER.24H PO SCH (08:09)
[2018-08-30] MEDS: Apixaban 5 MG TABLET PO SCH ×2 (08:09→20:02)
[2018-08-30 10:48] LABS: BUN/Creatinine Ratio 25 (6-26); Blood Urea Nitrogen 22 mg/dL (8-23); Calcium 9.7 mg/dL (8.6-10.3); Carbon Dioxide 28 mEq/L (23-29); Chloride 98 mEq/L (98-107); Glucose 145 mg/dL (70-105); Osmolality,Calculated 284 (280-300); Potassium 3.6 mEq/L (3.5-5.1); Sodium 134 mEq/L (136-145); eGFR For Non-African Americans > 60 (> 60)
[2018-08-30] MEDS ORDERED: Metoprolol XL (24 HR) Succ 25 MG TAB.ER.24H PO ONE (12:52)
--- NOTE | 2018-08-30 13:30 | Cardiology Progress Note ---
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 S/P C 08/24/18--Patient had successful PTCA/Drug-Eluting Stent placement in the mid LAD. Patient had successful PTCA in the Diagonal. Remaining 99% RPDA lesion status post staged PCI/[place]. -DAPT (ASA and Brilinta) uninterrupted. Pt verbalizes understanding. On BB, Statin. -Chest pain-free. -Of note, patient reported continued shortness of breath and brilinta was stopped. Was given loading dose of plavix today and start maintenance dose tomorrow. -Repeat limited TTE ordered. -Will continue to monitor. (2) Ischemic cardiomyopathy Current Visit: Yes Status: Acute Per Cardiology: -TTE LVEF 30-35%. Severe segmental left ventricular systolic dysfunction. -Repeat limited TTE pending. -STEMI s/p revascularization. Continue BB. -Previously, Few episodes NSVT on tele with longest 4 beats, none noted overnight. -Will attempt to add ACEi prior to d/c if BP will tolerate. BP currently marginal and need to uptitrate BB for AF. -Plan to repeat limited TTE in 40 days as outpt to re-evaluate EF. If EF remains <35%, will refer for ICD. -Discussed with , recommend life vest prior to discharge. Order placed. At bedside. (3) A-fib Current Visit: Yes Status: Acute Per Cardiology: -Presented in A-Fib, unclear chronicity, new diagnosis. 12 hr tele AVG HR 106, A-Fib. HR at bedside 90s-100s. On Toprol-XL 50 mg by mouth daily. Status post IV dig load. Now on by mouth digoxin 0.125mg PO daily. -Systolic blood pressure in the 100's. -[id number] 3 (Age, CAD, CHF). High CVA risk. Patient now on triple therapy. Denies any active bleeding or blood loss. -Per previous note: "[employer] dick check at [facility] was $95/mo. Pt's states since pt has never been on scheduled medication before, she does not think they have all of his insurance on file. They are agreeable to start Eliquis with 30 day free card and determine dick once they take insurance cards to [facility]. Will start Eliquis tonight. Pt will be on triple therapy (ASA, Brilinta, Eliquis) x 1 month, then will plan to stop ASA as outpt after 1 month". -Will continue to monitor, will attempt to uptitrate BB as BP will allow for better rate control. Qualifiers: Atrial fibrillation type: unspecified Qualified Code(s): I48.91 - Unspecified atrial fibrillation (4) Systolic CHF Current Visit: Yes Status: Acute Per cardiology: -Chest x-ray suggestive of CHF. -Requiring O2, not normally on at home, however O2 requirements improving. -Was started on IV lasix and put out about 1.5L overnight.Currently net negative ~1L. -Reports symptom improvement. -Unable to further titrate lasix due to BP. -BNP today 1016, improved. -Will continue IV lasix until euvolemic. -Chest x-ray in am. -Will continue to monitor. Qualifiers: Heart failure chronicity: acute Qualified Code(s): I50.21 - Acute systolic (congestive) heart failure Discussion w patient/family: The assessment and plan as outlined above was discussed with the patient and/or family members who expressed understanding and agreement. All questions were answered. Thank you for involving us in the care of your patient. Please call with any questions. Discussed and reviewed with . Subjective Principal diagnosis: STEMI Interval history: Patient reports shortness of breath improved today. Denies chest pain. Reports had episode of shortness of breath last night, however improved from previous night. Objective Vital Signs, Last 4 Hours Temp Pulse Resp BP Pulse Ox 08/30/18 11:36 110 96 08/30/18 11:01 97.6 F 113 18 113/79 96 08/30/18 09:58 95 General: Conversant, No Apparent Distress HEENT: Atraumatic, Normocephaly, Mucus Membranes Moist Neck: No JVD, Normal carotid pulses Cardiac: Normal S1 and S2, No Murmur, Other (Irregularly irregular) Lungs: Normal Breath Sounds, No Wheeze, Rales, Rhonchi Neuro: Alert and responsive, No focal deficits noted Abdomen: Soft, Non-Tender Skin: No rashes noted on visualized skin Musculoskeletal: No Chest Wall Tenderness Extremities: No Clubbing, No Cyanosis, No Edema, Normal Pulses Results 08/29/18 08:25 08/30/18 10:18 Lab Results Active Medications Acetaminophen (Tylenol) 650 mg PO Q6HR PRN PRN Reason: Fever Stop: 02/27/19 12:07 Last Admin: 08/29/18 20:58 Dose: 650 mg Apixaban (Eliquis) 5 mg PO BID [facility] Stop: 02/25/19 21:01 Last Admin: 08/30/18 08:09 Dose: 5 mg Aspirin (Aspirin) 81 mg PO DAILY [facility] Stop: 02/24/19 09:01 Last Admin: 08/30/18 08:09 Dose: 81 mg Atorvastatin Calcium (Lipitor) 80 mg PO HS [facility] Stop: 02/25/19 21:01 Last Admin: 08/29/18 19:53 Dose: 80 mg Clopidogrel Bisulfate (Plavix) 75 mg PO DAILY [facility] Stop: 03/02/19 09:01 Digoxin (Lanoxin) 0.125 mg PO DAILY [facility] Stop: 02/26/19 09:01 Last Admin: 08/30/18 08:08 Dose: 0.125 mg Diphenhydramine HCl (Benadryl) 25 mg PO HS PRN PRN Reason: Insomnia Stop: 02/28/19 10:47 Last Admin: 08/29/18 20:59 Dose: 25 mg Furosemide (Lasix) 20 mg IVP BID [facility] Stop: 02/26/19 21:01 Last Admin: 08/30/18 08:09 Dose: 20 mg Metoprolol Succinate (Toprol Xl) 75 mg PO DAILY [facility] Stop: 03/02/19 09:01 Omeprazole (Prilosec) 20 mg PO BIDAC [facility]; Protocol Stop: 02/27/19 16:31 Last Admin: 08/30/18 08:09 Dose: 20 mg Ondansetron HCl (Zofran) 4 mg IVP Q6HR PRN; Protocol PRN Reason: Nausea Stop: 02/23/19 15:30 Last Admin: 08/27/18 00:42 Dose: 4 mg Potassium Chloride (Potassium Chloride) 20 meq PO DAILY [facility] Stop: 02/27/19 09:01 Last Admin: 08/30/18 08:09 Dose: 20 meq Laboratory Tests 08/30/18 08/30/18 10:18 10:18 Creatinine 0.89 B-Natriuretic Peptide 1016 H - Imaging and Cardiology Chest Xray: report reviewed Echo: pending, report reviewed Cardiac cath: report reviewed - EKG Interpretation EKG results cardiology: other (Telemetry reviewed with average HR previous 12 hours noted to be 106, a.fib. PVCs, couplets noted.) Consult Discharge Plan - Plan Instructions: Chest Pain (ED) Referrals: Josh Ha CNP [Advanced Practice Nurse] - (Office will call the patient home with follow up appointment) Shad Macdonald MD [Primary Care Provider] - 09/02/18 2:30 pm
[2018-08-30] MEDS: Acetaminophen 325 MG TABLET PO PRN ×2 (15:51→23:49)
[2018-08-31] MEDS: Ondansetron 4 MG/2 ML VIAL IVP PRN (00:02)
[2018-08-31 04:59] LABS: BUN/Creatinine Ratio 26 (6-26); Blood Urea Nitrogen 24 mg/dL (8-23); Calcium 8.9 mg/dL (8.6-10.3); Carbon Dioxide 28 mEq/L (23-29); Chloride 98 mEq/L (98-107); Glucose 109 mg/dL (70-105); Osmolality,Calculated 281 (280-300); Potassium 4.1 mEq/L (3.5-5.1); Sodium 133 mEq/L (136-145); eGFR For Non-African Americans > 60 (> 60)
[2018-08-31] MEDS ORDERED: Metoprolol XL (24 HR) Succ 50 MG TAB.ER.24H PO SCH (09:00)
[2018-08-31] MEDS: Furosemide 20 MG/2 ML VIAL IVP SCH ×3 (09:15→20:36)
[2018-08-31] MEDS ORDERED: Perflutren Lipid Microsphere 1.3 ML in 0.9 % Sodium Chloride 8.7 ML IVP ONE (10:15)
[2018-08-31] MEDS: *HR* Digoxin 0.125 MG TABLET PO SCH (10:18)
[2018-08-31] MEDS: Apixaban 5 MG TABLET PO SCH ×2 (10:18→20:35)
[2018-08-31] MEDS: Aspirin 81 MG TAB.CHEW PO SCH (10:18)
--- NOTE | 2018-08-31 11:33 | Cardiology Progress Note ---
Addendum entered and electronically signed by Alma Giles DO 08/31/18 15:23: I examined this patient and my medical decision-making was reviewed with the Re sident Physician. I agree with the documented findings, disposition and treatment plan. Taking over Cardiology service today. Updated on recent events and ongoing symptoms of SOB. Brilinta stopped and changed to plavix. Trying to diurese him with careful watch on blood pressure. Sitting up in bed today, in NAD. Plan is to observe over next 24h after Brilinta has been stopped, start PO digo anamaria and gently diurese. He should remain on BIPAP throughout the day. May need to consider amiodarone if heart rates remain uncontrolled and blood pressure not cooperating. Original Note: Date of Encounter: 08/31/18 Time of Encounter: 10:30 Assessment and Plan (1) Anterior and lateral ST segment elevation Current Visit: Yes Status: Acute Per Cardiology: -Presented 08/24/18 as anterior and lateral STEMI, taken emergently to center medical and lab director. S/P LHC 08/24/18--Patient had successful PTCA/Drug-Eluting Stent placement in the mid LAD. Patient had successful PTCA in the Diagonal. Remaining 99% RPDA lesion status post staged PCI/NJ. -DAPT (ASA and Brilinta) uninterrupted. Pt verbalizes understanding. On BB, Statin. -Chest pain-free. -Of note, patient reported continued shortness of breath and brilinta was stopped. Was given loading dose of plavix and started on maintenance dose. -Repeat limited TTE ordered. -Will continue to monitor. (2) Ischemic cardiomyopathy Current Visit: Yes Status: Acute Per Cardiology: -TTE LVEF 30-35%. Severe segmental left ventricular systolic dysfunction. -Repeat limited TTE pending. -STEMI s/p revascularization. Continue BB. -Few episodes NSVT on tele with longest 5 beats. -Will attempt to add ACEi prior to d/c if BP will tolerate. BP currently marginal and need to uptitrate BB for AF. -Plan to repeat limited TTE in 40 days as outpt to re-evaluate EF. If EF remains <35%, will refer for ICD. -Discussed with , recommend life vest prior to discharge. Order placed. At bedside. (3) A-fib Current Visit: Yes Status: Acute Per Cardiology: -Presented in A-Fib, unclear chronicity, new diagnosis. 12 hr tele AVG HR 107, A-Fib. HR at bedside 90s-100s. On Toprol-XL 75 mg by mouth daily. Status post IV dig load. Now on by mouth digoxin 0.125mg PO daily. -Systolic blood pressure in the 100's. -[id number] 3 (Age, CAD, CHF). High CVA risk. Patient now on triple therapy. Denies any active bleeding or blood loss. -Per previous note: "Eliquis dick check at [facility] was $95/mo. Pt's states since pt has never been on scheduled medication before, she does not think they have all of his insurance on file. They are agreeable to start Eliquis with 30 day free card and determine dick once they take insurance cards to [facility]. Will start Eliquis tonight. Pt will be on triple therapy (ASA, Brilinta, Eliquis) x 1 m onth, then will plan to stop ASA as outpt after 1 month". -Will continue to monitor, will attempt to uptitrate BB as BP will allow for better rate control. Qualifiers: Atrial fibrillation type: unspecified Qualified Code(s): I48.91 - Unspecif ied atrial fibrillation (4) Systolic CHF Current Visit: Yes Status: Acute Per cardiology: -Chest x-ray suggestive of CHF. -Requiring O2, not normally on at home. Had hypoxic event overnight and was placed on Bipap. Chest x-ray repeated with progressive perihilar predominant pulmonary edema and unchanged effusions. -On IV lasix, currently net negative ~2L. -Reports symptom improvement. -BP marginal. -BNP 1016 -Discussed and reviewed with , will increased lasix to 20mg TID, monitor BP closely. If unable to adequately diurese with BP, can consider decreasing BB to allow BP room, starting amio, and increasing lasix. -Recommend Bipap as much as tolerated today. -Chest x-ray in am. -Will continue to monitor. Qualifiers: Heart failure chronicity: acute Qualified Code(s): I50.21 - Acute systolic (congestive) heart failure Discussion w patient/family: The assessment and plan as outlined above was discussed with the patient and/or family members who expressed understanding and agreement. All questions were answered. Thank you for involving us in the care of your patient. Please call with any questions. Discussed and reviewed with . Subjective Principal diagnosis: STEMI Interval history: Patient reports shortness of breath last night, hypoxia. Patient was placed on bipap with improvement in SpO2 and symptoms. Currently sitting in chair, appears comfortable on high flow nasal cannula. Objective Vital Signs, Last 4 Hours Temp Pulse Resp BP Pulse Ox 08/31/18 11:08 97.6 F 120 24 100/81 98 08/31/18 07:53 25 98 08/31/18 07:45 97.9 F 115 24 101/79 98 General: Conversant, No Apparent Distress HEENT: Atraumatic, Normocephaly, Mucus Membranes Moist Neck: No JVD, Normal carotid pulses Cardiac: Normal S1 and S2, No Murmur, Other (Irregularly irregular) Lungs: Other (Crackles noted throughout. ) Neuro: Alert and responsive, No focal deficits noted Abdomen: Soft, Non-Tender Skin: No rashes noted on visualized skin Musculoskeletal: No Chest Wall Tenderness Extremities: No Clubbing, No Cyanosis, No Edema, Normal Pulses Results 08/29/18 08:25 08/31/18 04:26 Lab Results Impressions Chest X-Ray 08/31/18 02:04 IMPRESSION: Progressive perihilar predominant pulmonary edema. Unchanged effusions. D/ / Jamie Miramontes / Jamie Miramontes Interpreting Provider: Jamie Miramontes Active Medications Acetaminophen (Tylenol) 650 mg PO Q6HR PRN PRN Reason: Fever Stop: 02/27/19 12:07 Last Admin: 08/30/18 23:49 Dose: 650 mg Apixaban (Eliquis) 5 mg PO BID [facility] Stop: 02/25/19 21:01 Last Admin: 08/31/18 10:18 Dose: 5 mg Aspirin (Aspirin) 81 mg PO DAILY [facility] Stop: 02/24/19 09:01 Last Admin: 08/31/18 10:18 Dose: 81 mg Atorvastatin Calcium (Lipitor) 80 mg PO HS [facility] Stop: 02/25/19 21:01 Last Admin: 08/30/18 20:01 Dose: 80 mg Clopidogrel Bisulfate (Plavix) 75 mg PO DAILY [facility] Stop: 03/02/19 09:01 Last Admin: 08/31/18 10:18 Dose: 75 mg Digoxin (Lanoxin) 0.125 mg PO DAILY [facility] Stop: 02/26/19 09:01 Last Admin: 08/31/18 10:18 Dose: 0.125 mg Diphenhydramine HCl (Benadryl) 25 mg PO HS PRN PRN Reason: Insomnia Stop: 02/28/19 10:47 Last Admin: 08/30/18 23:49 Dose: 25 mg Furosemide (Lasix) 20 mg IVP TID [facility] Stop: 03/02/19 15:01 Metoprolol Succinate (Toprol Xl) 75 mg PO DAILY [facility] Stop: 03/02/19 09:01 Last Admin: 08/31/18 10:18 Dose: 75 mg Omeprazole (Prilosec) 20 mg PO BIDAC [facility]; Protocol Stop: 02/27/19 16:31 Last Admin: 08/31/18 10:18 Dose: 20 mg Ondansetron HCl (Zofran) 4 mg IVP Q6HR PRN; Protocol PRN Reason: Nausea Stop: 02/23/19 15:30 Last Admin: 08/31/18 00:02 Dose: 4 mg Potassium Chloride (Potassium Chloride) 20 meq PO DAILY [facility] Stop: 02/27/19 09:01 Last Admin: 08/31/18 10:19 Dose: 20 meq Laboratory Tests 08/31/18 04:26 Creatinine 0.91 - Imaging and Cardiology Chest Xray: report reviewed Echo: pending, report reviewed Cardiac cath: report reviewed - EKG Interpretation EKG results cardiology: other (Telemetry reviewed with average HR previous 12 hours noted to be 107, a.fib. PVCS, couplets noted. 1 run of NS VT, lasting 5 beats.) Consult Discharge Plan - Plan Instructions: Chest Pain (ED) Referrals: Josh Ha CNP [Advanced Practice Nurse] - (Office will call the patient home with follow up appointment) Shad Macdonald MD [Primary Care Provider] - 09/02/18 2:30 pm
[2018-08-31] MEDS: Acetaminophen 325 MG TABLET PO PRN (20:43)
[2018-09-01] MEDS: *HR* Digoxin 0.125 MG TABLET PO SCH (09:17)
[2018-09-01] MEDS: Apixaban 5 MG TABLET PO SCH ×2 (09:17→20:42)
[2018-09-01] MEDS: Aspirin 81 MG TAB.CHEW PO SCH (09:18)
[2018-09-01] MEDS: Furosemide 20 MG/2 ML VIAL IVP SCH (09:18)
[2018-09-01] MEDS ORDERED: Amiodarone Premix 360 MG/200 ML BAG IVC ONE (09:53)
[2018-09-01] MEDS ORDERED: Furosemide 20 MG/2 ML VIAL IVP ONE (09:54)
[2018-09-01 09:56] LABS: BUN/Creatinine Ratio 26 (6-26); Blood Urea Nitrogen 23 mg/dL (8-23); Calcium 9.7 mg/dL (8.6-10.3); Carbon Dioxide 30 mEq/L (23-29); Chloride 96 mEq/L (98-107); Glucose 112 mg/dL (70-105); Magnesium 2.3 mg/dL (1.6-2.6); Osmolality,Calculated 280 (280-300); Potassium 4.1 mEq/L (3.5-5.1); Sodium 133 mEq/L (136-145); eGFR For Non-African Americans > 60 (> 60)
--- NOTE | 2018-09-01 11:53 | Cardiology Progress Note ---
Addendum entered and electronically signed by Alma Giles DO 09/01/18 17:35: I examined this patient and my medical decision-making was reviewed with the CN P. I agree with the documented findings, disposition and treatment plan. Mr. Rod was seen this morning and was stable but still symptomatic with SOB and requiring high amount of supplemental oxygen. Blood pressure borderline. Recommended stopping Toprol and starting amiodarone and continuing IV diuresis. This afternoon, he was re-evaluated after Angelina WINKLER observed him desaturate. Personally reviewed echo images. Ongoing symptoms concerning for acute systolic CHF. Recommend starting Dopamine to support BP and lasix drip for diuresis. He will be monitored on 2N for now since there are no ICU beds. Patient and updated with plan of care. If no significant improvement in morning, discussed with the option of transferring him to a tertiary care center. in agreement with plan. Original Note: Date of Encounter: 09/01/18 Time of Encounter: 10:00 Assessment and Plan (1) Anterior and lateral ST segment elevation Current Visit: Yes Status: Acute Per Cardiology: -Presented 08/24/18 as anterior and lateral STEMI, taken emergently to catheterization laboratory technician. S/P C 08/24/18--Patient had successful PTCA/Drug-Eluting Stent placement in the mid LAD. Patient had successful PTCA in the Diagonal. Remaining 99% RPDA lesion status post staged PCI/[place]J. -DAPT (ASA and Brilinta) uninterrupted. Pt verbalizes understanding. On BB, Statin. -Chest pain-free. -Of note, patient reported continued shortness of breath and brilinta was stopped. Was given loading dose of plavix and started on maintenance dose. -Will continue to monitor. (2) Ischemic cardiomyopathy Current Visit: Yes Status: Acute Per Cardiology: -TTE LVEF 30-35%. Severe segmental left ventricular systolic dysfunction. -Repeat limited TTE pending. -STEMI s/p revascularization. On BB. -Few episodes NSVT on tele with longest 13 beats, starting amio. -Will attempt to add ACEi prior to d/c if BP will tolerate. Will attempt to reintroduce BB as BP will tolerate also. -Plan to repeat limited TTE in 40 days as outpt to re-evaluate EF. If EF remains <35%, will refer for ICD. -Discussed with , recommend life vest prior to discharge. Order placed. At bedside. (3) A-fib Current Visit: Yes Status: Acute Per Cardiology: -Presented in A-Fib, unclear chronicity, new diagnosis. 12 hr tele AVG HR 95, A- Fib. HR at bedside 90s-100s. On Toprol-XL 75 mg by mouth daily. Status post IV dig load. Now on by mouth digoxin 0.125mg PO daily. -Systolic blood pressure in the 100's. -[id number] 3 (Age, CAD, CHF). High CVA risk. Patient now on triple therapy. Denies any active bleeding or blood loss. -Per previous note: "Eliquis dick check at [facility] was $95/mo. Pt's states since pt has never been on scheduled medication before, she does not think they have all of his insurance on file. They are agreeable to start Eliquis with 30 day free card and determine dick once they take insurance cards to [facility] Pt will be on triple therapy (ASA, Brilinta, Eliquis) x 1 month, then will plan to stop ASA as outpt after 1 month". -Discussed and reviewed with , with marginal BPs and need for more aggressive diuresis, will stop BB. Will start amiodarone IV. -Continue telemetry. Qualifiers: Atrial fibrillation type: unspecified Qualified Code(s): I48.91 - Unspecified atrial fibrillation (4) Systolic CHF Current Visit: Yes Status: Acute Per cardiology: -This am chest x-ray with CHF, small bilateral pleural effusions. -Still requireing high flow O2. -On IV lasix, currently net negative ~1.5L. -BP marginal. -BNP 1016 -Discussed and reviewed with , will stop BB, start amio to allow BP room. Will give extra 20mg IV lasix x1 now. Will monitor BP, and if tolerated will increase lasix to 40mg TID. -Recommend Bipap as much as tolerated today. -Can consider chest CTA with continued shortness of breath, hypoxia. -Will continue to monitor. Qualifiers: Heart failure chronicity: acute Qualified Code(s): I50.21 - Acute systolic (congestive) heart failure Discussion w patient/family: The assessment and plan as outlined above was discussed with the patient and/or family members who expressed understanding and agreement. All questions were answered. Thank you for involving us in the care of your patient. Please call with any questions. Discussed and reviewed with . Subjective Principal diagnosis: STEMI Interval history: Patient reports he slept well last night. States he wore his Bipap and felt fine. Currently on high flow NC, sitting in chair. Denies current complaints. Objective Vital Signs, Last 4 Hours Temp Pulse Resp BP Pulse Ox 09/01/18 11:28 98.2 F 112 19 107/92 95 09/01/18 11:16 86 20 93 09/01/18 09:40 93 09/01/18 09:37 100 09/01/18 09:33 101 20 93 General: Conversant, No Apparent Distress HEENT: Atraumatic, Normocephaly, Mucus Membranes Moist Neck: No JVD, Normal carotid pulses Cardiac: Normal S1 and S2, No Murmur, Other (Irregularly irregular) Lungs: Other (Right upper lobe crackles noted. ) Neuro: Alert and responsive, No focal deficits noted Abdomen: Soft, Non-Tender Skin: No rashes noted on visualized skin Musculoskeletal: No Chest Wall Tenderness Extremities: No Clubbing, No Cyanosis, No Edema, Normal Pulses Results 08/29/18 08:25 09/01/18 09:22 Lab Results Impressions Echocardiogram Limited Views 08/31/18 13:26 Impressions: LVEF 25-30%. Severe segmental left ventricular systolic dysfunction. Mild LV dilatation with mild eccentric LVH. Mild RV hypokinesis. Mild bi-atrial dilatation. Large pleural effusion. Left Ventricular Wall Motion: Rest Echo Findings The apical inferior, mid inferior, basal inferior, apical anterior, mid anterior, basal anterior, mid inferior septal, basal inferior septal, apical lateral, mid anterior lateral, basal anterior lateral, mid anterior septal and basal anterior septal london were hypokinetic. The apex and apical septal london were akinetic. All other wall segments showed normal motion. Findings: Study Quality * Technically sub-optimal due to clinical status, lack of LV contrast. ECG Findings * Atrial fibrillation with PVCs. Left Ventricle * LVEF 25-30%. * Severe segmental left ventricular systolic dysfunction. * Definity echo contrast was not used. * Mildly dilated left ventricle. * Mild ecconcentric left ventricular hypertrophy. Right Ventricle * Normal right ventricular structure and mild hypokinesis. Left Atrium * Normal left atrial size. * Mildly dilated left atrium. Right Atrium * Mildly dilated right atrium. Tricuspid Valve * Estimated RA pressure is 8 mmHg. IVC * The IVC is dilated. * > 50% respiratory change Pleural Effusion * Large pleural effusion. Chest X-Ray 09/01/18 06:00 IMPRESSION: Stable chest with cardiomegaly, pulmonary edema, and pleural effusions compatible with CHF. No major interval changes. D/ / Minda Rodriguez MD / Minda Rodriguez MD Interpreting Provider: Minda Rodriguez MD Active Medications Acetaminophen (Tylenol) 650 mg PO Q6HR PRN PRN Reason: Fever Stop: 02/27/19 12:07 Last Admin: 08/31/18 20:43 Dose: 650 mg Apixaban (Eliquis) 5 mg PO BID [facility] Stop: 02/25/19 21:01 Last Admin: 09/01/18 09:17 Dose: 5 mg Aspirin (Aspirin) 81 mg PO DAILY [facility] Stop: 02/24/19 09:01 Last Admin: 09/01/18 09:18 Dose: 81 mg Atorvastatin Calcium (Lipitor) 80 mg PO HS [facility] Stop: 02/25/19 21:01 Last Admin: 08/31/18 20:35 Dose: 80 mg Clopidogrel Bisulfate (Plavix) 75 mg PO DAILY [facility] Stop: 03/02/19 09:01 Last Admin: 09/01/18 09:17 Dose: 75 mg Digoxin (Lanoxin) 0.125 mg PO DAILY [facility] Stop: 02/26/19 09:01 Last Admin: 09/01/18 09:17 Dose: 0.125 mg Diphenhydramine HCl (Benadryl) 25 mg PO HS PRN PRN Reason: Insomnia Stop: 02/28/19 10:47 Last Admin: 08/31/18 20:43 Dose: 25 mg Furosemide (Lasix) 20 mg IVP TID [facility] Stop: 03/02/19 15:01 Last Admin: 09/01/18 09:18 Dose: 20 mg Amiodarone HCl/Dextrose (Amiodarone Drip Premix 360mg/200ml) 360 mg in 200 mls @ 33.333 mls/hr IVC ONCE ONE Stop: 09/01/18 15:52 Last Admin: 09/01/18 11:04 Dose: 1 mg/min, 33.333 mls/hr Amiodarone HCl/Dextrose (Amiodarone Drip Premix 360mg/200ml) 360 mg in 200 mls @ 16.667 mls/hr IVC CONT [facility] Stop: 03/03/19 10:01 Metoprolol Succinate (Toprol Xl) 75 mg PO DAILY [facility] Stop: 03/02/19 09:01 Last Admin: 08/31/18 10:18 Dose: 75 mg Omeprazole (Prilosec) 20 mg PO BIDAC [facility]; Protocol Stop: 02/27/19 16:31 Last Admin: 09/01/18 09:17 Dose: 20 mg Ondansetron HCl (Zofran) 4 mg IVP Q6HR PRN; Protocol PRN Reason: Nausea Stop: 02/23/19 15:30 Last Admin: 08/31/18 00:02 Dose: 4 mg Potassium Chloride (Potassium Chloride) 20 meq PO DAILY [facility] Stop: 02/27/19 09:01 Last Admin: 09/01/18 09:18 Dose: 20 meq Laboratory Tests 09/01/18 09:22 Potassium 4.1 Creatinine 0.87 Magnesium 2.3 - Imaging and Cardiology Chest Xray: report reviewed Echo: report reviewed Cardiac cath: report reviewed - EKG Interpretation EKG results cardiology: other (Telemetry reviewed with average HR previous 12 hours noted to be 95, a.fib. PVCs, couplets noted. One run of NS VT, lasting 13 beats.) Consult Discharge Plan - Plan Instructions: Chest Pain (ED) Referrals: Josh Ha CNP [Advanced Practice Nurse] - (Office will call the p atient home with follow up appointment) Shad Macdonald MD [Primary Care Provider] - 09/02/18 2:30 pm
[2018-09-01] MEDS: Amiodarone Premix 360 MG/200 ML BAG IVC SCH (16:20)
[2018-09-01] MEDS ORDERED: Furosemide 40 MG/4 ML VIAL IVP SCH (17:00)
--- NOTE | 2018-09-01 17:35 | Event Note ---
Date of Encounter: 09/01/18 Time of Encounter: 16:00 - Cardiology Event Note Patient re-assessed. Worsening shortness of breath noted. Conversational dyspnea noted. On high flow NC, asked RN to place back on Bipap. BP remains marginal. Patient Re-assessed with , will start dopamine. Will start lasix drip. Continue bipap. Will continue to monitor.
[2018-09-01] MEDS: Furosemide 240 MG in D5% in Water 96 ML IVC SCH (18:10)
[2018-09-01] MEDS: Acetaminophen 325 MG TABLET PO PRN (20:42)
[2018-09-01] MEDS ORDERED: Furosemide 40 MG/4 ML VIAL IVP ONE (21:00)
--- NOTE | 2018-09-01 23:07 | Electrocardiograph Report ---
[place] [id number] Test Date: 2018-08-29 Pat Name: Luis A Rod Department: 110 Room: 2N01 Gender: M Acid Pumper: DANIEL : 1955 Requested By: Valeri Faustin Order Number: [id number] Reading MD: Biju Dubon Measurements Intervals [place] Rate: 123 P: ME: 0 QRS: -41 QRSD: 109 T: 96 QT: 279 QTc: 352 Interpretive Statements ATRIAL FIBRILLATION WITH RAPID VENTRICULAR RESPONSE RIGHT AXIS DEVIATION ANTEROLATERAL MYOCARDIAL INFARCTION, PROBABLY RECENT Electronically Signed On 09-01-2018 23:06:17 EST by Biju Dubon
[2018-09-02] MEDS: Amiodarone Premix 360 MG/200 ML BAG IVC SCH ×2 (04:06→16:54)
[2018-09-02 05:48] LABS: Basophils # 0.1 K/mcL (0.0-0.2); Basophils % 0.9 %; Eosinophils # 0.3 K/mcL (0.0-0.6); Eosinophils % 3.3 %; Hematocrit 41.8 % (37.5-50.1); Hemoglobin 14.4 g/dL (12.9-16.9); Immature Granulocytes % 0.7 % (0-4); Lymphocytes # 2.1 K/mcL (0.6-4.6); Lymphocytes % 22.8 %; Mean Corpuscular HGB Conc 34.4 g/dL (31.6-35.5); Mean Corpuscular Hemoglobin 29.9 pg (28.0-33.3); Mean Corpuscular Volume 86.9 fL (83.0-100.0); Mean Platelet Volume 9.5 fL (9.4-12.4); Monocytes # 0.9 K/mcL (0.0-1.3); Monocytes % 10.1 %; Neutrophils # 5.6 K/mcL (1.6-8.9); Platelet Count 303 K/mcL (140-400); Red Blood Count 4.81 M/mcL (4.19-5.50); Red Cell Distribution Width 12.2 % (11.5-14.5); Segmented Neutrophils % 62.2 %
[2018-09-02 06:05] LABS: BUN/Creatinine Ratio 20 (6-26); Blood Urea Nitrogen 19 mg/dL (8-23); Calcium 9.2 mg/dL (8.6-10.3); Carbon Dioxide 31 mEq/L (23-29); Chloride 93 mEq/L (98-107); Glucose 124 mg/dL (70-105); Osmolality,Calculated 284 (280-300); Potassium 3.2 mEq/L (3.5-5.1); Sodium 135 mEq/L (136-145); eGFR For Non-African Americans > 60 (> 60)
[2018-09-02] MEDS: Apixaban 5 MG TABLET PO SCH ×2 (09:14→20:26)
[2018-09-02] MEDS: Aspirin 81 MG TAB.CHEW PO SCH (09:15)
[2018-09-02] MEDS: *HR* Digoxin 0.125 MG TABLET PO SCH (09:15)
--- NOTE | 2018-09-02 11:50 | Cardiology Progress Note ---
Date of Encounter: 09/02/18 Time of Encounter: 08:30 Assessment and Plan (1) Anterior and lateral ST segment elevation Current Visit: Yes Status: Acute Per Cardiology: -Presented 08/24/18 as anterior and lateral STEMI, taken emergently to laboratory coordinator. S/P C 08/24/18--Patient had successful PTCA/Drug-Eluting Stent placement in the mid LAD. Patient had successful PTCA in the Diagonal. Remaining 99% RPDA lesion status post staged PCI/NJ. -DAPT (ASA and Brilinta) uninterrupted. Pt verbalizes understanding. On BB, Statin. -Chest pain-free. -Of note, patient reported continued shortness of breath and brilinta was stopped. Was given loading dose of plavix and started on maintenance dose. -Will continue to monitor. (2) Ischemic cardiomyopathy Current Visit: Yes Status: Acute Per Cardiology: -TTE LVEF 30-35%. Severe segmental left ventricular systolic dysfunction. -Repeat limited TTE pending. -STEMI s/p revascularization. On BB. -Few episodes NSVT on tele with longest 13 beats, on amio. -Will attempt to add ACEi prior to d/c if BP will tolerate. Will attempt to re introduce BB as BP will tolerate also. -Plan to repeat limited TTE in 40 days as outpt to re-evaluate EF. If EF remains <35%, will refer for ICD. -Discussed with , recommend life vest prior to discharge. Order placed. At bedside. (3) A-fib Current Visit: Yes Status: Acute Per Cardiology: -Presented in A-Fib, unclear chronicity, new diagnosis. 12 hr tele AVG HR 96, A- Fib. HR at bedside 90s-100s. On amiodarone drip. Status post IV dig load. Now on by mouth digoxin 0.125mg PO daily. -Systolic blood pressure in the 100's. -[id number] 3 (Age, CAD, CHF). High CVA risk. Patient now on triple therapy. Denies any active bleeding or blood loss. -Per previous note: "Eliquis dick check at [facility] was $95/mo. Pt's states since pt has never been on scheduled medication before, she does not think they have all of his insurance on file. They are agreeable to start Eliquis with 30 day free card and determine dick once they take insurance cards to [facility]. Will start Eliquis tonight. Pt will be on triple therapy (ASA, Brilinta, Eliquis) x 1 month, then will plan to stop ASA as outpt after 1 month". -Continue amiodarone for now. Will attempt to add BB prior to discharge pending BPs. -Continue telemetry. Qualifiers: Atrial fibrillation type: unspecified Qualified Code(s): I48.91 - Unspecified atrial fibrillation (4) Systolic CHF Current Visit: Yes Status: Acute Per cardiology: -Patient was started on dopamine drip and lasix drip yesterday. Chest x-ray today with improvement in pulmonary edema. -Reports shortness of breath improved today. -Still requireing high flow O2. -On IV lasix drip at 10mg/hour, currently net negative ~5.5L. -Discussed and reviewed with , continue lasix and dopamine drips. Will consult PICC team for PICC line. -K 3.2 this am, will replace. Repeat BMP and chest xray -Recommend Bipap as much as tolerated today. -Strict i/os, fluid restriction, daily weights. -Will continue to monitor. Qualifiers: Heart failure chronicity: acute Qualified Code(s): I50.21 - Acute systolic (congestive) heart failure Discussion w patient/family: The assessment and plan as outlined above was discussed with the patient and/or family members who expressed understanding and agreement. All questions were answered. Thank you for involving us in the care of your patient. Please call with any questions. Discussed and reviewed with . Subjective Principal diagnosis: STEMI Interval history: Patient sitting up in chair. Reports shortness of breath improved. Denies chest pain. Reports feels tired today, however did not sleep much last night. Objective Vital Signs, Last 4 Hours Pulse Resp BP Pulse Ox 09/02/18 11:06 93 24 112/85 98 09/02/18 10:20 106 20 128/57 95 09/02/18 09:07 89 09/02/18 09:01 103 20 120/80 93 09/02/18 08:56 92 09/02/18 08:00 97 104/69 91 General: Conversant, No Apparent Distress HEENT: Atraumatic, Normocephaly, Mucus Membranes Moist Neck: No JVD, Normal carotid pulses Cardiac: Normal S1 and S2, No Murmur, Other (Irregularly irregular) Lungs: Other (Crackles noted to bilateral lower lobes. ) Neuro: Alert and responsive, No focal deficits noted Abdomen: Soft, Non-Tender Skin: No rashes noted on visualized skin Musculoskeletal: No Chest Wall Tenderness Extremities: No Clubbing, No Cyanosis, No Edema, Normal Pulses Results 09/02/18 05:28 09/02/18 05:28 Lab Results Impressions Chest X-Ray 09/02/18 06:00 IMPRESSION: CHF with improving pulmonary edema. D/ / Silviano Horvath MD / Silviano Horvath MD Interpreting Provider: Silviano Horvath MD Active Medications Acetaminophen (Tylenol) 650 mg PO Q6HR PRN PRN Reason: Fever Stop: 02/27/19 12:07 Last Admin: 09/01/18 20:42 Dose: 650 mg Apixaban (Eliquis) 5 mg PO BID [facility] Stop: 02/25/19 21:01 Last Admin: 09/02/18 09:14 Dose: 5 mg Aspirin (Aspirin) 81 mg PO DAILY [facility] Stop: 02/24/19 09:01 Last Admin: 09/02/18 09:15 Dose: 81 mg Atorvastatin Calcium (Lipitor) 80 mg PO HS [facility] Stop: 02/25/19 21:01 Last Admin: 09/01/18 20:42 Dose: 80 mg Clopidogrel Bisulfate (Plavix) 75 mg PO DAILY [facility] Stop: 03/02/19 09:01 Last Admin: 09/02/18 09:14 Dose: 75 mg Digoxin (Lanoxin) 0.125 mg PO DAILY [facility] Stop: 02/26/19 09:01 Last Admin: 09/02/18 09:15 Dose: 0.125 mg Diphenhydramine HCl (Benadryl) 25 mg PO HS PRN PRN Reason: Insomnia Stop: 02/28/19 10:47 Last Admin: 09/01/18 20:42 Dose: 25 mg Amiodarone HCl/Dextrose (Amiodarone Drip Premix 360mg/200ml) 360 mg in 200 mls @ 16.667 mls/hr IVC CONT [facility] Stop: 03/03/19 10:01 Last Admin: 09/02/18 04:06 Dose: 0.5 mg/min, 16.667 mls/hr Dopamine HCl/Dextrose (Dopamine Premix 400mg/250ml) 400 mg in 250 mls @ 16.106 mls/hr IVC .[id number] [facility] Stop: 03/03/19 17:16 Last Admin: 09/02/18 09:18 Dose: 5 mcg/kg/min, 16.106 mls/hr Furosemide 240 mg/ Dextrose 120 mls @ 5 mls/hr IVC .Q24H [facility] Stop: 03/03/19 17:16 Last Admin: 09/01/18 18:10 Dose: 10 mg/hr, 5 mls/hr Metoprolol Succinate (Toprol Xl) 75 mg PO DAILY [facility] Stop: 03/02/19 09:01 Last Admin: 08/31/18 10:18 Dose: 75 mg Omeprazole (Prilosec) 20 mg PO BIDAC [facility]; Protocol Stop: 02/27/19 16:31 Last Admin: 09/02/18 09:15 Dose: 20 mg Ondansetron HCl (Zofran) 4 mg IVP Q6HR PRN; Protocol PRN Reason: Nausea Stop: 02/23/19 15:30 Last Admin: 08/31/18 00:02 Dose: 4 mg Potassium Chloride (Potassium Chloride) 40 meq PO BIDWM [facility] Stop: 03/04/19 08:01 Last Admin: 09/02/18 09:15 Dose: 40 meq Laboratory Tests 09/02/18 09/02/18 05:28 05:28 Hgb 14.4 Potassium 3.2 L Creatinine 0.95 - Imaging and Cardiology Chest Xray: report reviewed Echo: report reviewed Cardiac cath: report reviewed - EKG Interpretation EKG results cardiology: other (Telemetry reviewed with average HR previous 12 hours noted to be 96, a.fib. PVCs, couplets noted. One run of NS VT lasting 7 beats.) Consult Discharge Plan - Plan Instructions: Chest Pain (ED) Referrals: Josh Ha CNP [Advanced Practice Nurse] - (Office will call the patient home with follow up appointment) Chiquita Byrne CNP [Advanced Practice Nurse] - 09/11/18 1:00 pm
[2018-09-02] MEDS: Furosemide 240 MG in D5% in Water 96 ML IVC SCH (13:56)
[2018-09-02 15:47] LABS: BUN/Creatinine Ratio 20 (6-26); Blood Urea Nitrogen 20 mg/dL (8-23); Calcium 9.2 mg/dL (8.6-10.3); Carbon Dioxide 30 mEq/L (23-29); Chloride 93 mEq/L (98-107); Glucose 135 mg/dL (70-105); Osmolality,Calculated 287 (280-300); Potassium 3.5 mEq/L (3.5-5.1); Sodium 136 mEq/L (136-145); eGFR For Non-African Americans > 60 (> 60)
--- NOTE | 2018-09-02 17:24 | Urology Procedure Note ---
Date of Encounter: 09/02/18 Time of Encounter: 01:00 Procedures:Urology - Catheter Insertion (Urinary) Estimated amount of urin (mLs): 200 Preparation: Povidone-Iodine Type of catheter inserted: 2 way, coude tip Catheter [place] Size: 18 Topical anesthesia used: Yes (Urojet) Results: successfully catheterized-immediate flow Urine Appearance: Clear Patient tolerated procedure: well Complications: none Additional comments: I was asked to place [place] catheter because of diuresis. Nurses were unable to place catheter. Able to successfully place 18-[place] Island[place] coude catheter after Urojet. Okay to remove catheter at primary services discretion.
[2018-09-02] MEDS: Acetaminophen 325 MG TABLET PO PRN (20:26)
[2018-09-03] MEDS: Amiodarone Premix 360 MG/200 ML BAG IVC SCH ×3 (00:33→23:18)
[2018-09-03 03:51] LABS: Basophils # 0.1 K/mcL (0.0-0.2); Basophils % 0.6 %; Eosinophils # 0.3 K/mcL (0.0-0.6); Eosinophils % 4.1 %; Hemoglobin 13.2 g/dL (12.9-16.9); Immature Granulocytes % 0.4 % (0-4); Lymphocytes # 2.3 K/mcL (0.6-4.6); Lymphocytes % 29.6 %; Mean Corpuscular HGB Conc 34.7 g/dL (31.6-35.5); Mean Corpuscular Hemoglobin 29.9 pg (28.0-33.3); Mean Corpuscular Volume 86.2 fL (83.0-100.0); Mean Platelet Volume 9.5 fL (9.4-12.4); Monocytes # 0.6 K/mcL (0.0-1.3); Monocytes % 7.9 %; Neutrophils # 4.5 K/mcL (1.6-8.9); Platelet Count 290 K/mcL (140-400); Red Blood Count 4.41 M/mcL (4.19-5.50); Segmented Neutrophils % 57.4 %
[2018-09-03 04:07] LABS: BUN/Creatinine Ratio 18 (6-26); Blood Urea Nitrogen 16 mg/dL (8-23); Calcium 8.9 mg/dL (8.6-10.3); Carbon Dioxide 33 mEq/L (23-29); Chloride 94 mEq/L (98-107); Glucose 116 mg/dL (70-105); Magnesium 2.3 mg/dL (1.6-2.6); Osmolality,Calculated 286 (280-300); Potassium 3.5 mEq/L (3.5-5.1); Sodium 137 mEq/L (136-145); eGFR For Non-African Americans > 60 (> 60)
[2018-09-03] MEDS: Furosemide 240 MG in D5% in Water 96 ML IVC SCH (06:24)
[2018-09-03] MEDS: Aspirin 81 MG TAB.CHEW PO SCH (08:40)
[2018-09-03] MEDS: *HR* Digoxin 0.125 MG TABLET PO SCH (08:40)
[2018-09-03] MEDS: Apixaban 5 MG TABLET PO SCH ×2 (08:40→21:44)
--- NOTE | 2018-09-03 08:56 | Urology Progress Note ---
<Coni Thomas N - Last Filed: 09/03/18 08:53> Date of Encounter: 09/03/18 Time of Encounter: 08:35 - Assessment and Plan (1) Difficulty with insertion of urinary catheter Current Visit: Yes Status: Acute Assessment and plan: Patient is a 63-year-old male who presents with ischemic cardiomyopathy. Nursing staff experienced difficulty with placing urinary catheter to monitor diuresis. Dr. Gonzalez was able to pass an 18-Maori coude catheter with minimal difficulty. Norwood is still in proper position and is sufficiently draining urine. Urology is available for any catheter care issues, and patient may benef it from bacitracin ointment at urethral meatus for any catheter discomfort. Progress Note Subjective: no new complaints Narrative: Patient seen and examined sitting upright in chair eating breakfast in no apparent distress. Norwood catheter is indwelling and draining clear urine into bedside bag. Patient has no new urologic concerns. Objective Initial Vital Signs Temp Pulse Resp BP Pulse Ox 97.9 F 150 22 149/96 98 08/24/18 12:39 08/24/18 12:39 08/24/18 12:39 08/24/18 12:39 08/24/18 12:39 - General physical appearance Present: well developed, no distress, no pain - Respiratory Present: normal expansion, normal respiratory effort - Abdomen Present: soft, non tender - Genitourinary Urine Appearance: Present: Clear - Integumentary Present: no rash, no abnormal pigmentation - Musculoskeletal Present: normal posture - Psychiatric Present: oriented to time, oriented to person, oriented to place, speech is normal, memory intact - Labs 09/03/18 03:32 09/03/18 03:32 Diabetes panel 09/02/18 09/03/18 Range/Units 15:07 03:32 Sodium 136 137 (136-145) mEq/L Potassium 3.5 3.5 (3.5-5.1) mEq/L Chloride 93 L 94 L (98-107) mEq/L Carbon Dioxide 30 H 33 H (23-29) mEq/L BUN 20 16 (8-23) mg/dL Creatinine 0.99 0.90 (0.70-1.30) mg/dL Glucose 135 H 116 H (70-105) mg/dL Calcium 9.2 8.9 (8.6-10.3) mg/dL Calcium panel 09/02/18 09/03/18 Range/Units 15:07 03:32 Calcium 9.2 8.9 (8.6-10.3) mg/dL Pituitary panel 09/02/18 09/03/18 Range/Units 15:07 03:32 Sodium 136 137 (136-145) mEq/L Potassium 3.5 3.5 (3.5-5.1) mEq/L Chloride 93 L 94 L (98-107) mEq/L Carbon Dioxide 30 H 33 H (23-29) mEq/L BUN 20 16 (8-23) mg/dL Creatinine 0.99 0.90 (0.70-1.30) mg/dL Glucose 135 H 116 H (70-105) mg/dL Calcium 9.2 8.9 (8.6-10.3) mg/dL Adrenal panel 09/02/18 09/03/18 Range/Units 15:07 03:32 Sodium 136 137 (136-145) mEq/L Potassium 3.5 3.5 (3.5-5.1) mEq/L Chloride 93 L 94 L (98-107) mEq/L Carbon Dioxide 30 H 33 H (23-29) mEq/L BUN 20 16 (8-23) mg/dL Creatinine 0.99 0.90 (0.70-1.30) mg/dL Glucose 135 H 116 H (70-105) mg/dL Calcium 9.2 8.9 (8.6-10.3) mg/dL Consult Discharge Plan - Plan Instructions: Chest Pain (ED) Referrals: Josh Ha CNP [Advanced Practice Nurse] - (Office will call the patient home with follow up appointment) Chiquita Byrne CNP [Advanced Practice Nurse] - 09/11/18 1:00 pm <Mandeep Gonzalez - Last Filed: 09/05/18 07:14> Date of Encounter: 09/05/18 - Assessment and Plan (1) Difficulty with insertion of urinary catheter Current Visit: Yes Status: Acute Assessment and plan: Agree with physician administration assistant assessment and plan. Catheter can be removed at primary services discretion Objective Initial Vital Signs Temp Pulse Resp BP Pulse Ox 97.9 F 150 22 149/96 98 08/24/18 12:39 08/24/18 12:39 08/24/18 12:39 08/24/18 12:39 08/24/18 12:39 - Labs 09/05/18 04:00 09/05/18 04:00 Diabetes panel 09/05/18 Range/Units 04:00 Sodium 132 L (136-145) mEq/L Potassium 3.2 L (3.5-5.1) mEq/L Chloride 92 L (98-107) mEq/L Carbon Dioxide 32 H (23-29) mEq/L BUN 15 (8-23) mg/dL Creatinine 1.04 (0.70-1.30) mg/dL Glucose 213 H (70-105) mg/dL Calcium 8.7 (8.6-10.3) mg/dL Calcium panel 09/05/18 Range/Units 04:00 Calcium 8.7 (8.6-10.3) mg/dL Pituitary panel 09/05/18 Range/Units 04:00 Sodium 132 L (136-145) mEq/L Potassium 3.2 L (3.5-5.1) mEq/L Chloride 92 L (98-107) mEq/L Carbon Dioxide 32 H (23-29) mEq/L BUN 15 (8-23) mg/dL Creatinine 1.04 (0.70-1.30) mg/dL Glucose 213 H (70-105) mg/dL Calcium 8.7 (8.6-10.3) mg/dL Adrenal panel 09/05/18 Range/Units 04:00 Sodium 132 L (136-145) mEq/L Potassium 3.2 L (3.5-5.1) mEq/L Chloride 92 L (98-107) mEq/L Carbon Dioxide 32 H (23-29) mEq/L BUN 15 (8-23) mg/dL Creatinine 1.04 (0.70-1.30) mg/dL Glucose 213 H (70-105) mg/dL Calcium 8.7 (8.6-10.3) mg/dL
--- NOTE | 2018-09-03 08:59 | Cardiology Progress Note ---
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 S/P [facility] 08/24/18--Patient had successful PTCA/Drug-Eluting Stent placement in the mid LAD. Patient had successful PTCA in the Diagonal. Remaining 99% RPDA lesion status post staged PCI/NJ. -DAPT (ASA and Brilinta) uninterrupted. Pt verbalizes understanding. On BB, Statin. -Chest pain-free. -Of note, patient reported continued shortness of breath and brilinta was stopped. Was given loading dose of plavix and started on maintenance dose. (2) A-fib Current Visit: Yes Status: Acute Per Cardiology: -Presented in A-Fib, unclear chronicity, new diagnosis. A-Fib. HR at bedside 100s. On amiodarone drip. Status post IV dig load. Discussed with Dr. Travis Garay, would discontinue digoxin, continue with amiodarone drip for now. C ontinue with dopamine drip at current dose and will add dobutamine at 2.5 mcg/kg/min. Will attempt to add BB prior to discharge pending BPs. Systolic blood pressure in the 100's. -[id number] 3 (Age, CAD, CHF). High CVA risk. Patient now on triple therapy. Denies any active bleeding or blood loss. -Per previous note: "Eliquis dick check at [facility] was $95/mo. Pt's states since pt has never been on scheduled medication before, she does not think they have all of his insurance on file. They are agreeable to start Eliquis with 30 day free card and determine dick once they take insurance cards to [facility]. Will start Eliquis tonreena. Pt will be on triple therapy (ASA, Brilinta, Eliquis) x 1 month, then will plan to stop ASA as outpt after 1 month". Qualifiers: Atrial fibrillation type: unspecified Qualified Code(s): I48.91 - Unspecified atrial fibrillation (3) Ischemic cardiomyopathy Current Visit: Yes Status: Acute Per Cardiology: -TTE LVEF 30-35%. Severe segmental left ventricular systolic dysfunction. Repeat limited echo: Impressions: LVEF 25-30%. Severe segmental left ventricular systolic dysfunction. Mild LV dilatation with mild eccentric LVH. Mild RV hypokinesis. Mild bi-atrial dilatation. Large pleural effusion. -STEMI s/p revascularization. Beta scott currently on hold due to hypotension. Not taking LAMAR inhibitor/ARB due to hypotension as well. -Plan to repeat limited TTE in 40 days as outpt to re-evaluate EF. If EF remains <35%, will refer for ICD. -Discussed with , recommend life vest prior to discharge. Order placed. At bedside. Discussion w patient/family: The assessment and plan as outlined above was discussed with the patient and/or family members who expressed understanding and agreement. All questions were answered. Thank you for involving us in the care of your patient. Please call with any questions. Has PT following. We will place social work consult for discharge planning assistance. Subjective Principal diagnosis: STEMI Interval history: Seen with at bedside. Up out of bed to chair. He denies any chest pain, palpitations, any active bleeding or blood loss. Reports shortness of breath has improved overnight. Reports he did sleep better last night. Objective Vital Signs, Last 4 Hours Temp Pulse Resp BP Pulse Ox 09/03/18 08:33 104 09/03/18 08:27 97 09/03/18 08:00 91 20 104/71 96 09/03/18 07:11 97.4 F L 91 20 106/72 97 General: Conversant, No Apparent Distress HEENT: Atraumatic, Normocephaly, Mucus Membranes Moist Neck: No JVD, Normal carotid pulses Cardiac: No Murmur, Other (Irregularly irregular) Lungs: Normal Breath Sounds, No Wheeze, Rales, Rhonchi, Other (Faint bilateral crackles to basis) Neuro: Alert and responsive, No focal deficits noted Abdomen: Soft, Non-Tender Skin: No rashes noted on visualized skin Musculoskeletal: No Chest Wall Tenderness Extremities: No Clubbing, No Cyanosis, No Edema, Normal Pulses Results 09/03/18 03:32 09/03/18 03:32 Lab Results Impressions Chest X-Ray 09/02/18 14:00 IMPRESSION: Probable shifting areas of atelectasis. Right basilar opacity is increased, while left basilar opacity is decreased. There is likely admixture pulmonary edema. Small bilateral pleural effusions persist. As differential, developing pneumonia in the right lower lobe is considered. D/ / Dago Sellers MD / Dago Sellers MD Interpreting Provider: Dago Sellers MD Chest X-Ray 09/02/18 16:24 IMPRESSION: Bilateral pleural effusions, not substantially changed. D/ / Brittney Grier MD / Brittney Grier MD Interpreting Provider: Brittney Grier MD Chest X-Ray 09/03/18 06:00 IMPRESSION: 1. Right PICC tip at the cavoatrial junction. 2. Otherwise, stable chest with small bilateral pleural effusions and bibasilar atelectasis. Mild pulmonary edema. D/ / Minda Rodriguez MD / Minda Rodriguez MD Interpreting Provider: Minda Rodriguez MD Intake & Output 08/31/18 09/01/18 09/02/18 09/03/18 23:59 23:59 23:59 23:59 Intake Total 1390 / 1390 1090 / 1090 1290 / 1290 300 / 300 Output Total 1190 / 1190 3875 / 3875 2780 / 2780 975 / 975 Balance 200 / 200 -2785 / -2785 -1490 / -1490 -675 / -675 Weight 85.9 kg Active Medications Acetaminophen (Tylenol) 650 mg PO Q6HR PRN PRN Reason: Fever Stop: 02/27/19 12:07 Last Admin: 09/02/18 20:26 Dose: 650 mg Apixaban (Eliquis) 5 mg PO BID [facility] Stop: 02/25/19 21:01 Last Admin: 09/03/18 08:40 Dose: 5 mg Aspirin (Aspirin) 81 mg PO DAILY [facility] Stop: 02/24/19 09:01 Last Admin: 09/03/18 08:40 Dose: 81 mg Atorvastatin Calcium (Lipitor) 80 mg PO HS [facility] Stop: 02/25/19 21:01 Last Admin: 09/02/18 20:26 Dose: 80 mg Clopidogrel Bisulfate (Plavix) 75 mg PO DAILY [facility] Stop: 03/02/19 09:01 Last Admin: 09/03/18 08:40 Dose: 75 mg Digoxin (Lanoxin) 0.125 mg PO DAILY [facility] Stop: 02/26/19 09:01 Last Admin: 09/03/18 08:40 Dose: 0.125 mg Diphenhydramine HCl (Benadryl) 25 mg PO HS PRN PRN Reason: Insomnia Stop: 02/28/19 10:47 Last Admin: 09/02/18 20:26 Dose: 25 mg Amiodarone HCl/Dextrose (Amiodarone Drip Premix 360mg/200ml) 360 mg in 200 mls @ 16.667 mls/hr IVC CONT [facility] Stop: 03/03/19 10:01 Last Admin: 09/03/18 00:33 Dose: 0.5 mg/min, 16.667 mls/hr Dopamine HCl/Dextrose (Dopamine Premix 400mg/250ml) 400 mg in 250 mls @ 16.106 mls/hr IVC .[id number] [facility] Stop: 03/03/19 17:16 Last Admin: 09/02/18 22:31 Dose: 5 mcg/kg/min, 16.106 mls/hr Furosemide 240 mg/ Dextrose 120 mls @ 5 mls/hr IVC .Q24H [facility] Stop: 03/03/19 17:16 Last Admin: 09/03/18 06:24 Dose: 10 mg/hr, 5 mls/hr Metoprolol Succinate (Toprol Xl) 75 mg PO DAILY [facility] Stop: 03/02/19 09:01 Last Admin: 08/31/18 10:18 Dose: 75 mg Omeprazole (Prilosec) 20 mg PO BIDAC [facility]; Protocol Stop: 02/27/19 16:31 Last Admin: 09/03/18 08:40 Dose: 20 mg Ondansetron HCl (Zofran) 4 mg IVP Q6HR PRN; Protocol PRN Reason: Nausea Stop: 02/23/19 15:30 Last Admin: 08/31/18 00:02 Dose: 4 mg Potassium Chloride (Potassium Chloride) 40 meq PO BIDWM [facility] Stop: 03/04/19 08:01 Last Admin: 09/03/18 08:40 Dose: 40 meq - EKG Interpretation EKG results cardiology: other (Currently A. fib on telemetry in the 100s) Consult Discharge Plan - Plan Instructions: Chest Pain (ED) Referrals: Josh Ha CNP [Advanced Practice Nurse] - (Office will call the patient home with follow up appointment) Chiquita Byrne CNP [Advanced Practice Nurse] - 09/11/18 1:00 pm
[2018-09-03] MEDS: Acetaminophen 325 MG TABLET PO PRN (21:44)
[2018-09-04 03:54] LABS: BUN/Creatinine Ratio 15 (6-26); Blood Urea Nitrogen 15 mg/dL (8-23); Calcium 9.2 mg/dL (8.6-10.3); Carbon Dioxide 34 mEq/L (23-29); Chloride 92 mEq/L (98-107); Glucose 147 mg/dL (70-105); Magnesium 2.3 mg/dL (1.6-2.6); Osmolality,Calculated 280 (280-300); Potassium 3.4 mEq/L (3.5-5.1); Sodium 133 mEq/L (136-145); eGFR For Non-African Americans > 60 (> 60)
[2018-09-04] MEDS: Furosemide 240 MG in D5% in Water 96 ML IVC SCH (06:39)
[2018-09-04] MEDS: Apixaban 5 MG TABLET PO SCH ×2 (07:53→21:29)
[2018-09-04] MEDS: Aspirin 81 MG TAB.CHEW PO SCH (07:53)
[2018-09-04] MEDS: Amiodarone Premix 360 MG/200 ML BAG IVC SCH ×2 (12:12→23:29)
--- NOTE | 2018-09-04 12:42 | Cardiology Progress Note ---
Date of Encounter: 09/04/18 Time of Encounter: 12:37 Assessment and Plan (1) Anterior and lateral ST segment elevation Current Visit: Yes Status: Acute Per Cardiology: Presented 08/24/18 as anterior and lateral STEMI, taken emergently to labeler. S/P C 08/24/18--Patient had successful PTCA/Drug-Eluting Stent placement in the mid LAD. Patient had successful PTCA in the Diagonal. Remaining 99% RPDA lesion s/p staged PCI/[place]J. DAPT (ASA and Brilinta) uninterrupted. Pt verbalizes understanding. On BB, Statin. Of note, reported continued shortness of breath and brilinta was stopped. Was given loading dose of plavix and started on 75mg daily maintenance dose. (2) Ischemic cardiomyopathy Current Visit: Yes Status: Acute Per Cardiology: TTE LVEF 30-35%. Severe segmental left ventricular systolic dysfunction. Repeat limited echo: LVEF 25-30%. Severe segmental left ventricular systolic dysfunction. Mild LV dilatation with mild eccentric LVH. Mild RV hypokinesis. Mild bi-atrial dilatation. Large pleural effusion. STEMI s/p revascularization. Beta scott currently on hold due to hypotension. Not taking LAMAR inhibitor/ARB due to hypotension as well. Plan to repeat limited TTE in 40 days as outpt to re-evaluate EF. If EF remains <35%, will refer for ICD. recommended life vest prior to discharge. Order placed. At bedside. (3) CAD (coronary artery disease) Current Visit: Yes Status: Acute S/P PCI. Continue ASA, Plavix, Statin, BB. Qualifiers: Coronary Disease-Associated Artery/Lesion type: [place] artery [place] vs. transplanted heart: [place] heart Associated angina: angina presence unspecified Qualified Code(s): I25.10 - Atherosclerotic heart disease of [place] coronary artery without angina pectoris (4) A-fib Current Visit: Yes Status: Acute Per Cardiology: Presented in A-Fib, unclear chronicity, new diagnosis. A-Fib. HR at bedside 90s. On amiodarone drip. Discussed with Dr. Travis Garay, discontinued digoxin, continue with amiodarone drip for now. Attempt to wean off dopamine drip, increase dobutamine. Will attempt to add BB prior to discharge pending BPs. Systolic blood pressure in the 100's. [id number] 3 (Age, CAD, CHF). High CVA risk. Patient now on triple therapy. Denies any active bleeding or blood loss. Eliquis dick check at [facility] was $95/mo. does not think they have all of his insurance on file. Agreeable to start Eliquis with 30 day free card and determine dick outpt. Pt will be on triple therapy (ASA, Brilinta, Eliquis) x 1 month, then will plan to stop ASA as outpt after 1 month. Qualifiers: Atrial fibrillation type: unspecified Qualified Code(s): I48.91 - Unspecified atrial fibrillation (5) Systolic CHF Current Visit: Yes Status: Acute Per cardiology: Patient was started on dopamine drip and lasix drip /. Dobutamine gtt added yesterday. Reports shortness of breath improved. On 4L O2. On IV lasix drip at 10mg/hour, currently net negative ~6.7L. Discussed and reviewed with Dr.John Garay, continue lasix gtt. Will attempt to wean off dopamine gtt and increase dobutamine. K 3.4 this am, will replace. Repeat CXR today stable bilateral pleural effusion with bibasilar consolidation, left greater than right; pneumonia is a consideration. This may reflect pulmonary edema sequela. Afebrile, normal WBC. Repeat tomorrow AM. Recommend Bipap as much as tolerated today. Strict i/os, fluid restriction, daily weights. Will continue to monitor. Qualifiers: Heart failure chronicity: acute Qualified Code(s): I50.21 - Acute systolic (congestive) heart failure Discussion w patient/family: The assessment and plan as outlined above was discussed with the patient and/or family members who expressed understanding and agreement. All questions were answered. Thank you for involving us in the care of your patient. Please call with any questions. I will discuss all the above with Dr. Travis Garay and make changes as necessary. Subjective Principal diagnosis: STEMI Interval history: Pt reports dyspnea has improved. Denies chest pain. Cumulative I/O -6726mL. Objective Vital Signs, Last 4 Hours Temp Pulse Resp BP Pulse Ox 09/04/18 11:44 97.8 F 108 18 84/63 93 Vital Signs Temp Pulse Resp BP Pulse Ox 09/04/18 11:44 97.8 F 108 18 84/63 93 09/04/18 07:10 97.6 F 94 19 113/79 94 09/04/18 04:00 97.1 F L 91 21 111/79 95 09/04/18 03:00 89 114/84 09/04/18 02:00 90 107/66 09/04/18 01:00 106 100/70 09/04/18 00:00 83 106/71 09/03/18 23:00 97.9 F 111 21 108/66 93 09/03/18 22:00 114 107/81 09/03/18 21:00 98 103/79 09/03/18 20:22 116 09/03/18 20:00 97.6 F 97 18 106/83 95 09/03/18 18:00 105 106/72 97 09/03/18 16:28 97.4 F L 100 17 100/78 96 09/03/18 15:00 103 108/74 09/03/18 14:00 115 103/71 09/03/18 13:00 123 102/81 Intake and Output 09/03/18 09/04/18 09/04/18 23:59 07:59 15:59 Intake Total 320 / 320 500 / 500 820 / 820 Output Total 550 / 550 1000 / 1000 400 / 400 Balance -230 / -230 -500 / -500 420 / 420 Intake: IV Fluids 200 / 200 500 / 500 380 / 380 Amiodarone Drip Premix 360mg/ 200 / 200 200 / 200 200mL 360 mg In 200 ml @ 0.5 MG /MIN 16.667 mls/hr IVC CONT [facility] Rx#:[id number] DOBUTamine Premix 250 MG/250 ML 250 / 250 90 / 90 250 mg In 250 ml @ 2.5 MCG/KG/ MIN 12.885 mls/hr IVC .[id number] [facility] Rx#:[id number] DOPamine Premix 400mg/250mL 400 250 / 250 90 / 90 mg In 250 ml @ 5 MCG/KG/MIN 16 .106 mls/hr IVC .[id number] [facility] Rx #:[id number] Oral 120 / 120 440 / 440 Output: Catheter 550 / 550 1000 / 1000 400 / 400 Urethral ([place]) 500 / 500 Other: Meal Dinner Breakfast Percent of Meal Consumed 25% 100% Weight 79.7 kg Patient Weight 09/04/18 23:59 Weight 79.7 kg General: Conversant, No Apparent Distress HEENT: Atraumatic, Normocephaly, Mucus Membranes Moist Neck: Normal carotid pulses Cardiac: Other (irregularly irregular) Lungs: Other (diminished) Neuro: Alert and responsive, No focal deficits noted Abdomen: Soft, Non-Tender Skin: No rashes noted on visualized skin Musculoskeletal: No Chest Wall Tenderness Extremities: No Clubbing, No Cyanosis, No Edema, Normal Pulses Results 09/03/18 03:32 09/04/18 03:19 Lab Results 09/04/18 03:19 Sodium 133 L Potassium 3.4 L Chloride 92 L Carbon Dioxide 34 H BUN 15 Creatinine 0.97 Glucose 147 H Calcium 9.2 Magnesium 2.3 Vital Signs Temp Pulse Resp BP Pulse Ox 09/04/18 11:44 97.8 F 108 18 84/63 93 09/04/18 07:10 97.6 F 94 19 113/79 94 09/04/18 04:00 97.1 F L 91 21 111/79 95 09/04/18 03:00 89 114/84 09/04/18 02:00 90 107/66 09/04/18 01:00 106 100/70 09/04/18 00:00 83 106/71 09/03/18 23:00 97.9 F 111 21 108/66 93 09/03/18 22:00 114 107/81 09/03/18 21:00 98 103/79 09/03/18 20:22 116 09/03/18 20:00 97.6 F 97 18 106/83 95 09/03/18 18:00 105 106/72 97 09/03/18 16:28 97.4 F L 100 17 100/78 96 09/03/18 15:00 103 108/74 09/03/18 14:00 115 103/71 09/03/18 13:00 123 102/81 Intake and Output 09/03/18 09/04/18 09/04/18 23:59 07:59 15:59 Intake Total 320 / 320 500 / 500 820 / 820 Output Total 550 / 550 1000 / 1000 400 / 400 Balance -230 / -230 -500 / -500 420 / 420 Intake: IV Fluids 200 / 200 500 / 500 380 / 380 Amiodarone Drip Premix 360mg/ 200 / 200 200 / 200 200mL 360 mg In 200 ml @ 0.5 MG /MIN 16.667 mls/hr IVC CONT [facility] Rx#:[id number] DOBUTamine Premix 250 MG/250 ML 250 / 250 90 / 90 250 mg In 250 ml @ 2.5 MCG/KG/ MIN 12.885 mls/hr IVC .[id number] [facility] Rx#:[id number] DOPamine Premix 400mg/250mL 400 250 / 250 90 / 90 mg In 250 ml @ 5 MCG/KG/MIN 16 .106 mls/hr IVC .[id number] [facility] Rx #:[id number] Oral 120 / 120 440 / 440 Output: Catheter 550 / 550 1000 / 1000 400 / 400 Urethral ([place]) 500 / 500 Other: Meal Dinner Breakfast Percent of Meal Consumed 25% 100% Weight 79.7 kg Patient Weight 09/04/18 23:59 Weight 79.7 kg - Imaging and Cardiology Chest Xray: report reviewed Echo: report reviewed Cardiac cath: report reviewed - EKG Interpretation EKG results cardiology: other (12 hr tele AVG HR 96, A-FIb) Consult Discharge Plan - Plan Instructions: Chest Pain (ED) Referrals: Josh Ha CNP [Advanced Practice Nurse] - (Office will call the patient home with follow up appointment) Chiquita Byrne CNP [Advanced Practice Nurse] - 09/11/18 1:00 pm
[2018-09-04] MEDS: Acetaminophen 325 MG TABLET PO PRN (21:29)
[2018-09-05] MEDS: Furosemide 240 MG in D5% in Water 96 ML IVC SCH (06:00)
[2018-09-05 06:04] LABS: Basophils # 0.1 K/mcL (0.0-0.2); Basophils % 0.7 %; Eosinophils # 0.1 K/mcL (0.0-0.6); Hematocrit 34.1 % (37.5-50.1); Hemoglobin 11.8 g/dL (12.9-16.9); Immature Granulocytes % 0.4 % (0-4); Lymphocytes # 2.3 K/mcL (0.6-4.6); Mean Corpuscular HGB Conc 34.6 g/dL (31.6-35.5); Mean Corpuscular Hemoglobin 29.9 pg (28.0-33.3); Mean Corpuscular Volume 86.5 fL (83.0-100.0); Mean Platelet Volume 9.4 fL (9.4-12.4); Monocytes # 0.7 K/mcL (0.0-1.3); Neutrophils # 3.6 K/mcL (1.6-8.9); Platelet Count 322 K/mcL (140-400); Red Blood Count 3.94 M/mcL (4.19-5.50); Red Cell Distribution Width 12.4 % (11.5-14.5); Segmented Neutrophils % 53.9 %
[2018-09-05 06:24] LABS: BUN/Creatinine Ratio 14 (6-26); Blood Urea Nitrogen 15 mg/dL (8-23); Calcium 8.7 mg/dL (8.6-10.3); Carbon Dioxide 32 mEq/L (23-29); Chloride 92 mEq/L (98-107); Glucose 213 mg/dL (70-105); Magnesium 2.3 mg/dL (1.6-2.6); Osmolality,Calculated 281 (280-300); Potassium 3.2 mEq/L (3.5-5.1); Sodium 132 mEq/L (136-145); eGFR For Non-African Americans > 60 (> 60)
[2018-09-05] MEDS: Apixaban 5 MG TABLET PO SCH ×2 (07:31→21:44)
[2018-09-05] MEDS: Aspirin 81 MG TAB.CHEW PO SCH (07:31)
--- NOTE | 2018-09-05 10:41 | Cardiology Progress Note ---
Date of Encounter: 09/05/18 Time of Encounter: 10:39 Assessment and Plan (1) Anterior and lateral ST segment elevation Current Visit: Yes Status: Acute Per Cardiology: Presented 08/24/18 as anterior and lateral STEMI, taken emergently to skill labor. S/P C 08/24/18--Patient had successful PTCA/Drug-Eluting Stent placement in the mid LAD. Patient had successful PTCA in the Diagonal. Remaining 99% RPDA lesion s/p staged PCI/[place] 08/26. DAPT uninterrupted. Pt verbalizes understanding. On Statin. BB has been held d/t hypotension. Plan on resuming prior to d/c if BP tolerates. Of note, reported continued shortness of breath and brilinta was stopped. Was g iven loading dose of plavix and started on 75mg daily maintenance dose. (2) Systolic CHF Current Visit: Yes Status: Acute Per cardiology: Started on dopamine drip and lasix drip 09/01. Dobutamine gtt added 09/03. Dopamine weaned off 09/04. Remains on dobutamine gtt at 7mcg/kg/min. On IV lasix drip at 10mg/hour, currently net negative ~5.9L. Weight mildly increased today--from 79.7kg to 80.1kg. Weight on admission was 81.6kg and h ighest weight was 85.9kg on 08/31. O2 requirements continue to decrease--currently on 2L NC. Reviewed with Dr. Sylvia Garay, continue lasix and dobutamine gtt for another 24 hours. Plan tomorrow 09/06 to stop/wean gtts and transition to PO meds. Plan to remove sanchez once lasix gtt is stopped. K 3.2 this am, will replace. Repeat CXR today stable cardiopulmonary status including mild edema, left base opacity and bilateral effusions. COPD. Recommend Bipap at night. Will need to see if he qualifies for O2 prior to dc. Strict i/os, fluid restriction, daily weights. Qualifiers: Heart failure chronicity: acute Qualified Code(s): I50.21 - Acute systolic (congestive) heart failure (3) Ischemic cardiomyopathy Current Visit: Yes Status: Acute Per Cardiology: TTE LVEF 30-35%. Severe segmental left ventricular systolic dysfunction. Repeat limited echo: LVEF 25-30%. Severe segmental left ventricular systolic dysfunction. Mild LV dilatation with mild eccentric LVH. Mild RV hypokinesis. Mild bi-atrial dilatation. Large pleural effusion. STEMI s/p revascularization. Beta scott currently on hold due to hypotension. Not taking LAMAR inhibitor/ARB due to hypotension as well. Plan to repeat limited TTE in 40 days as outpt to re-evaluate EF. If EF remains <35%, will refer for ICD. recommended life vest prior to discharge. Order placed. At bedside. (4) A-fib Current Visit: Yes Status: Acute Per Cardiology: Presented in A-Fib, unclear chronicity, new diagnosis. A-Fib. HR at bedside 90s- low 100s. On amiodarone drip. Discussed with Dr. Travis Garay, discontinued digoxin, continue with amiodarone drip for now. Will attempt BB prior to discharge pending BP. Systolic blood pressure in the 90s-100's. [id number] 3 (Age, CAD, CHF). High CVA risk. Patient now on triple therapy. Denies any active bleeding or blood loss. Eliquis dick check at [facility] was $95/mo. does not think they have all of his insurance on file. Agreeable to start Eliquis with 30 day free card and d etermine dick outpt. Pt will be on triple therapy (ASA, Brilinta, Eliquis) x 1 month, then will plan to stop ASA as outpt after 1 month. Qualifiers: Atrial fibrillation type: unspecified Qualified Code(s): I48.91 - Unspecified atrial fibrillation Discussion w patient/family: The assessment and plan as outlined above was discussed with the patient and/or family members who expressed understanding and agreement. All questions were answered. Thank you for involving us in the care of your patient. Please call with any questions. I will discuss all the above with Dr. Sylvia Garay and make changes as nadiya guevara. Subjective Principal diagnosis: STEMI Interval history: Pt reports dyspnea has improved. Denies chest pain. Cumulative I/O -5976mL. Objective Vital Signs, Last 4 Hours Temp Pulse Resp BP Pulse Ox 09/05/18 09:16 91 18 90/72 09/05/18 09:00 106 18 85/66 09/05/18 08:00 97 18 104/72 09/05/18 07:00 98 18 95/62 09/05/18 06:54 97.9 F 105 18 99/79 94 Vital Signs Temp Pulse Resp BP Pulse Ox 09/05/18 09:16 91 18 90/72 09/05/18 09:00 106 18 85/66 09/05/18 08:00 97 18 104/72 09/05/18 07:00 98 18 95/62 09/05/18 06:54 97.9 F 105 18 99/79 94 09/05/18 04:24 83 99/66 09/05/18 04:01 23 94 09/05/18 03:14 96.9 F L 18 93 09/05/18 03:00 106 105/65 09/05/18 02:00 100 93/63 09/05/18 01:00 104 103/69 09/05/18 00:00 96 95/69 09/04/18 23:37 97.2 F L 96 18 94/64 91 09/04/18 23:00 106 99/69 09/04/18 22:00 98 89/60 09/04/18 21:00 96 107/78 09/04/18 19:00 97.7 F 93 19 122/71 95 09/04/18 17:00 100 112/87 09/04/18 16:30 98 09/04/18 16:00 96 111/76 09/04/18 15:59 97.6 F 107 18 111/76 96 09/04/18 15:00 100 116/82 09/04/18 14:00 85 103/75 09/04/18 13:00 100 95/44 09/04/18 12:00 107 101/77 09/04/18 11:44 97.8 F 108 18 84/63 93 09/04/18 11:00 109 84/63 Intake and Output 09/04/18 09/05/18 09/05/18 23:59 07:59 15:59 Intake Total 720 / 720 340 / 340 276 / 276 Output Total 600 / 600 450 / 450 Balance 120 / 120 -110 / -110 276 / 276 Intake: IV Fluids 240 / 240 340 / 340 36 / 36 Amiodarone Drip Premix 360mg/ 200 / 200 200mL 360 mg In 200 ml @ 0.5 MG /MIN 16.667 mls/hr IVC CONT [facility] Rx#:[id number] DOBUTamine Premix 250 MG/250 ML 40 / 40 220 / 220 36 / 36 250 mg In 250 ml @ 2.5 MCG/KG/ MIN 12.885 mls/hr IVC .[id number] [facility] Rx#:[id number] Lasix 240 MG In Dextrose 5% 96 120 / 120 ML @ 10 MG/HR 5 mls/hr IVC . Q24H [facility] Rx#:[id number] Oral 480 / 480 240 / 240 Output: Catheter 600 / 600 450 / 450 Urethral (Sanchez) 400 / 400 250 / 250 Other: Meal Dinner Breakfast Percent of Meal Consumed 90% 100% Weight 80.1 kg Patient Weight 09/05/18 23:59 Weight 80.1 kg General: Conversant, No Apparent Distress HEENT: Atraumatic, Normocephaly, Mucus Membranes Moist Neck: Normal carotid pulses Cardiac: Other (irregularly irregular) Lungs: Other (diminished) Neuro: Alert and responsive, No focal deficits noted Abdomen: Soft, Non-Tender Skin: No rashes noted on visualized skin Musculoskeletal: No Chest Wall Tenderness Extremities: No Clubbing, No Cyanosis, No Edema, Normal Pulses Results 09/05/18 04:00 09/05/18 04:00 Lab Results 09/05/18 09/05/18 04:00 04:00 WBC 6.8 Hgb 11.8 L Hct 34.1 L Plt Count 322 Sodium 132 L Potassium 3.2 L Chloride 92 L Carbon Dioxide 32 H BUN 15 Creatinine 1.04 Glucose 213 H Calcium 8.7 Magnesium 2.3 Short CBC 09/05/18 Range/Units 04:00 WBC 6.8 (4.3-11.1) K/mcL Hgb 11.8 L (12.9-16.9) g/dL Hct 34.1 L (37.5-50.1) % Plt Count 322 (140-400) K/mcL Neutrophils # 3.6 (1.6-8.9) K/mcL BMP 09/05/18 Range/Units 04:00 Sodium 132 L (136-145) mEq/L Potassium 3.2 L (3.5-5.1) mEq/L Chloride 92 L (98-107) mEq/L Carbon Dioxide 32 H (23-29) mEq/L BUN 15 (8-23) mg/dL Creatinine 1.04 (0.70-1.30) mg/dL Glucose 213 H (70-105) mg/dL Calcium 8.7 (8.6-10.3) mg/dL Impressions Chest X-Ray 09/04/18 10:56 IMPRESSION: Stable bilateral pleural effusion with bibasilar consolidation, left greater than right; pneumonia is a consideration. This may reflect pulmonary edema sequela. Chronic appearing coarse interstitial densities predominate parahilar regions and lung bases, typical of sequela from smoking or other previous infectious/inflammatory process. D/ / Diego Jane / Diego Jane Interpreting Provider: Diego Jane Chest X-Ray 09/05/18 08:00 IMPRESSION: 1. Stable right upper extremity PICC. 2. Stable cardiopulmonary status including mild edema, left base opacity and bilateral effusions. 3. COPD. D/ / 09/05/2018 10:30:26 Mayela Lee MD / jamir Interpreting Provider: Mayela Lee MD Active Medications Acetaminophen (Tylenol) 650 mg PO Q6HR PRN PRN Reason: Fever Stop: 02/27/19 12:07 Last Admin: 09/04/18 21:29 Dose: 650 mg Apixaban (Eliquis) 5 mg PO BID [facility] Stop: 02/25/19 21:01 Last Admin: 09/05/18 07:31 Dose: 5 mg Aspirin (Aspirin) 81 mg PO DAILY [facility] Stop: 02/24/19 09:01 Last Admin: 09/05/18 07:31 Dose: 81 mg Atorvastatin Calcium (Lipitor) 80 mg PO HS [facility] Stop: 02/25/19 21:01 Last Admin: 09/04/18 21:30 Dose: 80 mg Clopidogrel Bisulfate (Plavix) 75 mg PO DAILY [facility] Stop: 03/02/19 09:01 Last Admin: 09/05/18 07:31 Dose: 75 mg Diphenhydramine HCl (Benadryl) 25 mg PO HS PRN PRN Reason: Insomnia Stop: 02/28/19 10:47 Last Admin: 09/04/18 21:29 Dose: 25 mg Amiodarone HCl/Dextrose (Amiodarone Drip Premix 360mg/200ml) 360 mg in 200 mls @ 16.667 mls/hr IVC CONT [facility] Stop: 03/03/19 10:01 Last Admin: 09/04/18 23:29 Dose: 0.5 mg/min, 16.667 mls/hr Dopamine HCl/Dextrose (Dopamine Premix 400mg/250ml) 400 mg in 250 mls @ 16.106 mls/hr IVC .[id number] [facility] Stop: 03/03/19 17:16 Last Infusion: 09/04/18 14:27 Dose: 0 mcg/kg/min, 0 mls/hr Dobutamine HCl/Dextrose (Dobutamine Premix 250 Mg/250 Ml) 250 mg in 250 mls @ 12.885 mls/hr IVC .[id number] [facility]; Protocol Stop: 03/05/19 10:01 Last Admin: 09/05/18 09:27 Dose: 7 mcg/kg/min, 36.078 mls/hr Furosemide 240 mg/ Dextrose 120 mls @ 5 mls/hr IVC .Q24H [facility] Stop: 03/06/19 06:31 Last Admin: 09/05/18 06:00 Dose: 10 mg/hr, 5 mls/hr Metoprolol Succinate (Toprol Xl) 75 mg PO DAILY [facility]LEN Stop: 03/02/19 09:01 Last Admin: 08/31/18 10:18 Dose: 75 mg Omeprazole (Prilosec) 20 mg PO BIDAC [facility]LEN; Protocol Stop: 02/27/19 16:31 Last Admin: 09/05/18 07:31 Dose: 20 mg Ondansetron HCl (Zofran) 4 mg IVP Q6HR PRN; Protocol PRN Reason: Nausea Stop: 02/23/19 15:30 Last Admin: 08/31/18 00:02 Dose: 4 mg Potassium Chloride (Potassium Chloride) 40 meq PO BIDWM [facility] Stop: 03/04/19 08:01 Last Admin: 09/05/18 07:31 Dose: 40 meq - Imaging and Cardiology Echo: report reviewed Cardiac cath: report reviewed - EKG Interpretation EKG results cardiology: other (12 hr tele AVG HR 100, A-Fib) Consult Discharge Plan - Plan Instructions: Chest Pain (ED) Referrals: Leland,Josh R, INDUSTRIAL RELATIONS ANALYST [Advanced Practice Nurse] - (Office will call the patient home with follow up appointment) Chiquita Byrne CNP [Advanced Practice Nurse] - 09/11/18 1:00 pm
[2018-09-05] MEDS: Amiodarone Premix 360 MG/200 ML BAG IVC SCH ×2 (11:25→23:34)
[2018-09-05] MEDS: Acetaminophen 325 MG TABLET PO PRN (21:43)
[2018-09-06] MEDS: Furosemide 240 MG in D5% in Water 96 ML IVC SCH (06:02)
[2018-09-06] MEDS: Aspirin 81 MG TAB.CHEW PO SCH (07:27)
[2018-09-06] MEDS: Apixaban 5 MG TABLET PO SCH ×2 (07:27→21:26)
--- NOTE | 2018-09-06 08:56 | Cardiology Progress Note ---
Date of Encounter: 09/06/18 Time of Encounter: 08:50 Assessment and Plan (1) Anterior and lateral ST segment elevation Current Visit: Yes Status: Acute Per Cardiology: Presented 08/24/18 as anterior and lateral STEMI, taken emergently to seed analysis laboratory assistant. S/P C 08/24/18--Patient had successful PTCA/Drug-Eluting Stent placement in the mid LAD. Patient had successful PTCA in the Diagonal. Remaining 99% RPDA lesion s/p staged PCI/[place] 08/26. DAPT uninterrupted. Pt verbalizes understanding. On Statin. Adding low dose BB. Of note, reported continued shortness of breath and brilinta was stopped. Was given loading dose of plavix and started on 75mg daily maintenance dose. CP free. (2) A-fib Current Visit: Yes Status: Acute Per Cardiology: Presented in A-Fib, unclear chronicity, new diagnosis. A-Fib. HR at bedside 90s- low 100s. On amiodarone drip. Discussed with Dr. Travis Garay, we will discontinue amiodarone drip and start Toprol-XL 25 mg by mouth daily. [id number] 3 (Age, CAD, CHF). High CVA risk. Patient now on triple therapy. Denies any active bleeding or blood loss. Eliquis dick check at [facility] was $95/mo. does not think they have all of his insurance on file. Agreeable to start Eliquis with 30 day free card and determine dick outpt. Pt will be on triple therapy (ASA, Brilinta, Eliquis) x 1 month, then will plan to stop ASA as outpt after 1 month. No bleeding noted. Qualifiers: Atrial fibrillation type: unspecified Qualified Code(s): I48.91 - Unspecified atrial fibrillation (3) Ischemic cardiomyopathy Current Visit: Yes Status: Acute Per Cardiology: TTE LVEF 30-35%. Severe segmental left ventricular systolic dysfunction. Repeat limited echo: LVEF 25-30%. Severe segmental left ventricular systolic dysfunction. Mild LV dilatation with mild eccentric LVH. Mild RV hypokinesis. Mild bi-atrial dilatation. Large pleural effusion. STEMI s/p revascularization. Adding low dose BB. Not taking LAMAR inhibitor/ARB due to hypotension as well. Plan to repeat limited TTE in 40 days as outpt to re-evaluate EF. If EF remains <35%, will refer for ICD. Dr. Marks recommended life vest prior to discharge. Order placed. At bedside. (4) Systolic CHF Current Visit: Yes Status: Acute Per Cardiology: Started on dopamine drip and lasix drip 09/01. Dobutamine gtt added 09/03. Dopamine weaned off 09/04. Remains on dobutamine gtt at 6mcg/kg/min-- discussed with Dr. Travis Garay, will wean down IV Dobutamine to 2.5mcg/kg/min today. On IV lasix drip at 10mg/hour, currently net negative ~4.6L. Plan to DC IV Lasix gtt tomorrow. O2 requirements continue to decrease--currently on RA. Plan to remove sanchez once lasix gtt is stopped. Will need to see if he qualifies for O2 prior t o dc. Strict i/os, fluid restriction, daily weights. Qualifiers: Heart failure chronicity: acute Qualified Code(s): I50.21 - Acute systolic (congestive) heart failure Discussion w patient/family: The assessment and plan as outlined above was discussed with the patient and/or family members who expressed understanding and agreement. All questions were answered. Thank you for involving us in the care of your patient. Please call with any questions. Has PT following. We will place social work consult for discharge planning assistance. Subjective Principal diagnosis: STEMI Interval history: Denies any CP, SOB has improved. Denies palps. Denies any bleeding. Objective Vital Signs, Last 4 Hours Temp Pulse Resp BP Pulse Ox 09/06/18 08:00 95 18 114/61 95 09/06/18 07:06 97.6 F 100 18 109/77 09/06/18 07:00 108 09/06/18 06:00 100 114/78 09/06/18 05:00 111 112/84 General: Conversant, No Apparent Distress HEENT: Atraumatic, Normocephaly, Mucus Membranes Moist Neck: No JVD, Normal carotid pulses Cardiac: No Murmur, Other (irregularly irregular) Lungs: Normal Breath Sounds, No Wheeze, Rales, Rhonchi Neuro: Alert and responsive, No focal deficits noted Abdomen: Soft, Non-Tender Skin: No rashes noted on visualized skin Musculoskeletal: No Chest Wall Tenderness Extremities: No Clubbing, No Cyanosis, No Edema, Normal Pulses Results 09/05/18 04:00 09/05/18 04:00 Laboratory Tests 09/05/18 09/05/18 04:00 04:00 Hgb 11.8 L Hct 34.1 L Potassium 3.2 L Creatinine 1.04 Est GFR (Non-Af Amer) > 60 Magnesium 2.3 Impressions Chest X-Ray 09/05/18 08:00 IMPRESSION: 1. Stable right upper extremity PICC. 2. Stable cardiopulmonary status including mild edema, left base opacity and bilateral effusions. 3. COPD. D/ / 09/05/2018 10:30:26 Mayela Lee MD / jamir Interpreting Provider: Mayela Lee MD Active Medications Acetaminophen (Tylenol) 650 mg PO Q6HR PRN PRN Reason: Fever Stop: 02/27/19 12:07 Last Admin: 09/05/18 21:43 Dose: 650 mg Apixaban (Eliquis) 5 mg PO BID KAYLEN Stop: 02/25/19 21:01 Last Admin: 09/06/18 07:27 Dose: 5 mg Aspirin (Aspirin) 81 mg PO DAILY KAYLEN Stop: 02/24/19 09:01 Last Admin: 09/06/18 07:27 Dose: 81 mg Atorvastatin Calcium (Lipitor) 80 mg PO HS KAYLEN Stop: 02/25/19 21:01 Last Admin: 09/05/18 21:44 Dose: 80 mg Clopidogrel Bisulfate (Plavix) 75 mg PO DAILY KAYLEN Stop: 03/02/19 09:01 Last Admin: 09/06/18 07:27 Dose: 75 mg Diphenhydramine HCl (Benadryl) 25 mg PO HS PRN PRN Reason: Insomnia Stop: 02/28/19 10:47 Last Admin: 09/05/18 21:44 Dose: 25 mg Furosemide 240 mg/ Dextrose 120 mls @ 5 mls/hr IVC .Q24H KAYLEN Stop: 03/06/19 06:31 Last Admin: 09/06/18 06:02 Dose: 10 mg/hr, 5 mls/hr Metoprolol Succinate (Toprol Xl) 25 mg PO DAILY KAYLEN Stop: 03/08/19 09:01 Last Admin: 09/06/18 08:38 Dose: 25 mg Omeprazole (Prilosec) 20 mg PO BIDAC KAYLEN; Protocol Stop: 02/27/19 16:31 Last Admin: 09/06/18 07:27 Dose: 20 mg Ondansetron HCl (Zofran) 4 mg IVP Q6HR PRN; Protocol PRN Reason: Nausea Stop: 02/23/19 15:30 Last Admin: 08/31/18 00:02 Dose: 4 mg Potassium Chloride (Potassium Chloride) 40 meq PO BIDWM KAYLEN Stop: 03/04/19 08:01 Last Admin: 09/06/18 07:27 Dose: 40 meq Consult Discharge Plan - Plan Instructions: Chest Pain (ED) Referrals: Josh Ha CNP [Advanced Practice Nurse] - (Office will call the patient home with follow up appointment) Chiquita Byrne CNP [Advanced Practice Nurse] - 09/11/18 1:00 pm
[2018-09-06] MEDS ORDERED: Metoprolol XL (24 HR) Succ 25 MG TAB.ER.24H PO SCH (09:00)
[2018-09-06 10:06] LABS: BUN/Creatinine Ratio 12 (6-26); Blood Urea Nitrogen 13 mg/dL (8-23); Calcium 8.6 mg/dL (8.6-10.3); Carbon Dioxide 25 mEq/L (23-29); Chloride 89 mEq/L (98-107); Glucose 350 mg/dL (70-105); Osmolality,Calculated 276 (280-300); Potassium 3.7 mEq/L (3.5-5.1); Sodium 126 mEq/L (136-145); eGFR For Non-African Americans > 60 (> 60)
[2018-09-06] MEDS ORDERED: 0.9 % Sodium Chloride 500 ML ONE (11:27)
[2018-09-06] MEDS: Acetaminophen 325 MG TABLET PO PRN (21:42)
[2018-09-07] MEDS: Furosemide 240 MG in D5% in Water 96 ML IVC SCH (04:53)
[2018-09-07] MEDS: Apixaban 5 MG TABLET PO SCH ×2 (07:46→21:26)
[2018-09-07] MEDS: Aspirin 81 MG TAB.CHEW PO SCH (07:46)
--- NOTE | 2018-09-07 09:20 | Cardiology Progress Note ---
Date of Encounter: 09/07/18 Time of Encounter: 08:40 Assessment and Plan (1) Anterior and lateral ST segment elevation Current Visit: Yes Status: Acute Per Cardiology: Presented 08/24/18 as anterior and lateral STEMI, taken emergently to cath lab tech. S/P C 08/24/18--Patient had successful PTCA/Drug-Eluting Stent placement in the mid LAD. Patient had successful PTCA in the Diagonal. Remaining 99% RPDA lesion s/p staged PCI/[place] 08/26. DAPT uninterrupted. Pt verbalizes understanding. On asa, plavix, statin and BB. Of note, reported continued shortness of breath and brilinta was stopped. Was given loading dose of plavix and started on 75mg daily maintenance dose. CP free. (2) A-fib Current Visit: Yes Status: Acute Per Cardiology: Presented in A-Fib, unclear chronicity, new diagnosis. A-Fib. HR at bedside 90s. Average heart rate on telemetry last 12 hours 91, remains atrial fibrillation. Systolic blood pressures remain labile will decrease Toprol-XL from 25 mg by mouth daily to 12.5 mg by mouth daily. Now off digoxin and amiodarone. [id number] 3 (Age, CAD, CHF). High CVA risk. Patient now on triple therapy. Denies any active bleeding or blood loss. Eliquis dick check at [facility] was $95/mo. does not think they have all of his insurance on file. Agreeable to start Eliquis with 30 day free card and determine dick outpt. Pt will be on triple therapy (ASA, Brilinta, Eliquis) x 1 month, then will plan to stop ASA as outpt after 1 month. No bleeding noted. Qualifiers: Atrial fibrillation type: unspecified Qualified Code(s): I48.91 - Unspecified atrial fibrillation (3) Ischemic cardiomyopathy Current Visit: Yes Status: Acute Per Cardiology: TTE LVEF 30-35%. Severe segmental left ventricular systolic dysfunction. Repeat limited echo: LVEF 25-30%. Severe segmental left ventricular systolic dysfunction. Mild LV dilatation with mild eccentric LVH. Mild RV hypokinesis. Mild bi-atrial dilatation. Large pleural effusion. STEMI s/p revascularization. On BB. Not taking LAMAR inhibitor/ARB due to hypotensionl. Plan to repeat limited TTE in 40 days as outpt to re-evaluate EF. If EF remains <35%, will refer for ICD. Dr. Marks recommended life vest prior to discharge. Order placed. At bedside. One 14 beat run of nonsustained VT noted overnight. BMP pending. K and mag was stable. (4) Systolic CHF Current Visit: Yes Status: Acute Per Cardiology: Started on dopamine drip and lasix drip 09/01. Dobutamine gtt added 09/03. Dopamine weaned off 09/04. Remains on dobutamine gtt at 2.5mcg/kg/min and IV lasix drip at 10mg/hour, currently net negative ~6.1L. Patient now on room air sats 99%. Per discussions Dr. Travis Garay, will DC dobutamine drip and Lasix drip. Will start Lasix 40mg IV BID for now. Continue follow BMP. We will discontinue [place] catheter. Will need to see if he qualifies for O2 prior to dc. Strict i/os, fluid restriction, daily weights. Qualifiers: Heart failure chronicity: acute Qualified Code(s): I50.21 - Acute systolic (congestive) heart failure Discussion w patient/family: The assessment and plan as outlined above was discussed with the patient and/or family members who expressed understanding and agreement. All questions were answered. Thank you for involving us in the care of your patient. Please call with any questions. Physical therapy and social work following. Patient and indicate desire to go home and not to rehabilitation. We will need to assess if qualifies for home oxygen.. Subjective Principal diagnosis: STEMI Interval history: Denies any CP, SOB has improved. Denies palps. Denies any bleeding. Reports slept better last night with nasal cannula oxygen only. Not interested in discharge to rehabilitation. Objective Vital Signs, Last 4 Hours Temp Pulse Resp BP Pulse Ox 09/07/18 07:02 98.2 F 95 19 81/60 91 General: Conversant, No Apparent Distress HEENT: Atraumatic, Normocephaly, Mucus Membranes Moist Neck: No JVD, Normal carotid pulses Cardiac: No Murmur, Other (Irregularly irregular) Lungs: Normal Breath Sounds, No Wheeze, Rales, Rhonchi Neuro: Alert and responsive, No focal deficits noted Abdomen: Soft, Non-Tender Skin: No rashes noted on visualized skin Musculoskeletal: No Chest Wall Tenderness Extremities: No Clubbing, No Cyanosis, No Edema, Normal Pulses Other: [place] catheter draining clear yellow urine Results 09/05/18 04:00 09/06/18 09:30 Lab Results BMP pending Active Medications Acetaminophen (Tylenol) 650 mg PO Q6HR PRN PRN Reason: Fever Stop: 02/27/19 12:07 Last Admin: 09/06/18 21:42 Dose: 650 mg Apixaban (Eliquis) 5 mg PO BID KAYLEN Stop: 02/25/19 21:01 Last Admin: 09/07/18 07:46 Dose: 5 mg Aspirin (Aspirin) 81 mg PO DAILY KAYLEN Stop: 02/24/19 09:01 Last Admin: 09/07/18 07:46 Dose: 81 mg Atorvastatin Calcium (Lipitor) 80 mg PO HS KAYLEN Stop: 02/25/19 21:01 Last Admin: 09/06/18 21:27 Dose: 80 mg Clopidogrel Bisulfate (Plavix) 75 mg PO DAILY KAYLEN Stop: 03/02/19 09:01 Last Admin: 09/07/18 07:46 Dose: 75 mg Diphenhydramine HCl (Benadryl) 25 mg PO HS PRN PRN Reason: Insomnia Stop: 02/28/19 10:47 Last Admin: 09/06/18 21:26 Dose: 25 mg Furosemide (Lasix) 40 mg IVP BIDDIURETIC KAYLEN Stop: 03/09/19 09:16 Metoprolol Succinate (Toprol Xl) 12.5 mg PO DAILY KAYLEN Stop: 03/09/19 09:16 Omeprazole (Prilosec) 20 mg PO BIDAC KAYLEN; Protocol Stop: 02/27/19 16:31 Last Admin: 09/07/18 07:46 Dose: 20 mg Ondansetron HCl (Zofran) 4 mg IVP Q6HR PRN; Protocol PRN Reason: Nausea Stop: 02/23/19 15:30 Last Admin: 08/31/18 00:02 Dose: 4 mg Potassium Chloride (Potassium Chloride) 40 meq PO BIDWM KAYLEN Stop: 03/04/19 08:01 Last Admin: 09/07/18 07:46 Dose: 40 meq - EKG Interpretation EKG results cardiology: other (Currently A. fib telemetry in the s) Consult Discharge Plan - Plan Instructions: Chest Pain (ED) Referrals: Josh Ha CNP [Advanced Practice Nurse] - (Office will call the patient home with follow up appointment) Chiquita Byrne CNP [Advanced Practice Nurse] - 09/11/18 1:00 pm
[2018-09-07 11:19] LABS: BUN/Creatinine Ratio 14 (6-26); Blood Urea Nitrogen 15 mg/dL (8-23); Calcium 9.4 mg/dL (8.6-10.3); Carbon Dioxide 29 mEq/L (23-29); Chloride 98 mEq/L (98-107); Glucose 116 mg/dL (70-105); Osmolality,Calculated 280 (280-300); Sodium 134 mEq/L (136-145); eGFR For Non-African Americans > 60 (> 60)
[2018-09-07] MEDS: Furosemide 40 MG/4 ML VIAL IVP SCH ×2 (12:06→16:04)
[2018-09-07] MEDS: Metoprolol XL (24 HR) Succ 25 MG TAB.ER.24H PO SCH (12:06)
[2018-09-07] MEDS: Acetaminophen 325 MG TABLET PO PRN (21:26)
[2018-09-08 03:58] LABS: BUN/Creatinine Ratio 19 (6-26); Blood Urea Nitrogen 18 mg/dL (8-23); Carbon Dioxide 28 mEq/L (23-29); Chloride 100 mEq/L (98-107); Glucose 94 mg/dL (70-105); Osmolality,Calculated 282 (280-300); Potassium 3.9 mEq/L (3.5-5.1); Sodium 135 mEq/L (136-145); eGFR For Non-African Americans > 60 (> 60)
[2018-09-08 04:53] LABS: ABG Base Excess 3 mEq/L (-2 to 3); ABG HCO3 25 mEq/L (21-27); ABG Oxygen Saturation 97 % (95-98); ABG PCO2 29 mmHg (35-45); ABG PH 7.54 pH Units (7.32-7.45); ABG PO2 76 mmHg (85-104); ABG TCO2 26 mEq/L (20-26)
[2018-09-08] MEDS: Apixaban 5 MG TABLET PO SCH ×2 (08:00→19:50)
[2018-09-08] MEDS: Metoprolol XL (24 HR) Succ 25 MG TAB.ER.24H PO SCH (08:00)
[2018-09-08] MEDS: Aspirin 81 MG TAB.CHEW PO SCH (08:01)
[2018-09-08] MEDS: Furosemide 40 MG/4 ML VIAL IVP SCH (08:02)
--- NOTE | 2018-09-08 08:34 | Cardiology Progress Note ---
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 S/P C 08/24/18--Patient had successful PTCA/Drug-Eluting Stent placement in the mid LAD. Patient had successful PTCA in the Diagonal. Remaining 99% RPDA lesion s/p staged PCI/[place] 08/26. DAPT uninterrupted. Pt verbalizes understanding. On asa, plavix, statin and BB. Of note, reported continued shortness of breath and brilinta was stopped. Was given loading dose of plavix and started on 75mg daily maintenance dose. CP free. (2) A-fib Current Visit: Yes Status: Acute Per Cardiology: Presented in A-Fib, unclear chronicity, new diagnosis. A-Fib. HR at bedside 90s. Average heart rate on telemetry last 12 hours 96, remains atrial fibrillation. On Toprol XL 12.5 mg by mouth daily. Systolic blood pressures in the 90s to 100s. Now off digoxin and amiodarone. [id number] 3 (Age, CAD, CHF). High CVA risk. Patient now on triple therapy. Denies any active bleeding or blood loss. Eliquis dick check at [facility] was $95/mo. does not think they have all of his insurance on file. Agreeable to start Eliquis with 30 day free card and determine dick outpt. Pt will be on triple therapy (ASA, Brilinta, Eliquis) x 1 month, then will plan to stop ASA as outpt after 1 month. No bleeding noted. Qualifiers: Atrial fibrillation type: unspecified Qualified Code(s): I48.91 - Unsp ecified atrial fibrillation (3) Ischemic cardiomyopathy Current Visit: Yes Status: Acute Per Cardiology: TTE LVEF 30-35%. Severe segmental left ventricular systolic dysfunction. Repeat limited echo: LVEF 25-30%. Severe segmental left ventricular systolic dysfunction. Mild LV dilatation with mild eccentric LVH. Mild RV hypokinesis. Mild bi-atrial dilatation. Large pleural effusion. STEMI s/p revascularization. On BB. Not taking LAMAR inhibitor/ARB due to hypotension. Plan to repeat limited TTE in 40 days as outpt to re-evaluate EF. If EF remains <35%, will refer for ICD. Dr. Marks recommended life vest prior to discharge. Order placed. At bedside. No events noted on telemetry. (4) Systolic CHF Current Visit: Yes Status: Acute Per Cardiology: Started on dopamine drip and lasix drip 09/01. Dobutamine gtt added 09/03. Dopamine weaned off 09/04. Now off dobutamine and Lasix drips and currently net negative ~6.6L. Patient now on NC 2L sats 99%. Currently on IV Lasix 40 mg twice a day, will convert to Lasix 40 mg by mouth twice a day. Will decrease K+. Check BMP in am. Will need to see if he qualifies for O2 prior to dc. Strict i/os, fluid restriction, daily weights. Possible discharge tomorrow. Qualifiers: Heart failure chronicity: acute Qualified Code(s): I50.21 - Acute systolic (congestive) heart failure Discussion w patient/family: The assessment and plan as outlined above was discussed with the patient and/or family members who expressed understanding and agreement. All questions were answered. Thank you for involving us in the care of your patient. Please call with any questions. Physical therapy and social work following. Patient and indicate desire to go home and not to rehabilitation. We will need to assess if qualifies for home oxygen.. Subjective Principal diagnosis: STEMI Interval history: Denies any CP, SOB has improved. Denies palps. Denies any bleeding. Reports ambulating with no difficulty. Patient and report overall continued improvement. Objective Vital Signs, Last 4 Hours Temp Pulse Resp BP Pulse Ox 09/08/18 07:03 98.3 F 98 18 109/83 94 General: Conversant, No Apparent Distress HEENT: Atraumatic, Normocephaly, Mucus Membranes Moist Neck: No JVD, Normal carotid pulses Cardiac: No Murmur, Other (Irregularly irregular) Lungs: Normal Breath Sounds, No Wheeze, Rales, Rhonchi Neuro: Alert and responsive, No focal deficits noted Abdomen: Soft, Non-Tender Skin: No rashes noted on visualized skin Musculoskeletal: No Chest Wall Tenderness Extremities: No Clubbing, No Cyanosis, No Edema, Normal Pulses Results 09/05/18 04:00 09/08/18 03:25 Lab Results Laboratory Tests 09/08/18 03:25 Creatinine 0.93 Est GFR (Non-Af Amer) > 60 Active Medications Acetaminophen (Tylenol) 650 mg PO Q6HR PRN PRN Reason: Fever Stop: 02/27/19 12:07 Last Admin: 09/07/18 21:26 Dose: 650 mg Apixaban (Eliquis) 5 mg PO BID KAYLEN Stop: 02/25/19 21:01 Last Admin: 09/08/18 08:00 Dose: 5 mg Aspirin (Aspirin) 81 mg PO DAILY KAYLEN Stop: 02/24/19 09:01 Last Admin: 09/08/18 08:01 Dose: 81 mg Atorvastatin Calcium (Lipitor) 80 mg PO HS KAYLEN Stop: 02/25/19 21:01 Last Admin: 09/07/18 21:26 Dose: 80 mg Clopidogrel Bisulfate (Plavix) 75 mg PO DAILY [facility] Stop: 03/02/19 09:01 Last Admin: 09/08/18 08:00 Dose: 75 mg Diphenhydramine HCl (Benadryl) 25 mg PO HS PRN PRN Reason: Insomnia Stop: 02/28/19 10:47 Last Admin: 09/07/18 21:26 Dose: 25 mg Furosemide (Lasix) 40 mg IVP BIDDIURETIC KAYLEN Stop: 03/09/19 09:16 Last Admin: 09/08/18 08:02 Dose: 40 mg Metoprolol Succinate (Toprol Xl) 12.5 mg PO DAILY [facility] Stop: 03/09/19 09:16 Last Admin: 09/08/18 08:00 Dose: 12.5 mg Omeprazole (Prilosec) 20 mg PO BIDAC KAYLEN; Protocol Stop: 02/27/19 16:31 Last Admin: 09/08/18 08:00 Dose: 20 mg Ondansetron HCl (Zofran) 4 mg IVP Q6HR PRN; Protocol PRN Reason: Nausea Stop: 02/23/19 15:30 Last Admin: 08/31/18 00:02 Dose: 4 mg Potassium Chloride (Potassium Chloride) 40 meq PO BIDWM KAYLEN Stop: 03/04/19 08:01 Last Admin: 09/08/18 08:01 Dose: 40 meq Consult Discharge Plan - Plan Instructions: Chest Pain (ED) Referrals: Josh Ha, CLINICAL LIAISON [Advanced Practice Nurse] - (Office will call the patient home with follow up appointment) Chiquita Byrne, PETERSON [Advanced Practice Nurse] - 09/11/18 1:00 pm
--- NOTE | 2018-09-08 14:42 | Event Note ---
Date of Encounter: 09/08/18 Time of Encounter: 14:00 - Cardiology Event Note Per discussion with nursing staff, patient did not qualify for ambulatory home O2, but it does appear he does qualify for nighttime oxygen.
[2018-09-08] MEDS: Furosemide 40 MG TABLET PO SCH (17:06)
[2018-09-09 03:57] LABS: BUN/Creatinine Ratio 24 (6-26); Blood Urea Nitrogen 20 mg/dL (8-23); Calcium 8.9 mg/dL (8.6-10.3); Carbon Dioxide 26 mEq/L (23-29); Chloride 103 mEq/L (98-107); Glucose 103 mg/dL (70-105); Osmolality,Calculated 287 (280-300); Potassium 3.8 mEq/L (3.5-5.1); Sodium 137 mEq/L (136-145); eGFR For Non-African Americans > 60 (> 60)
[2018-09-09 07:24] VITALS: BP 89/76
[2018-09-09] MEDS: Aspirin 81 MG TAB.CHEW PO SCH (08:00)
[2018-09-09] MEDS: Apixaban 5 MG TABLET PO SCH (08:00)
[2018-09-09] MEDS: Metoprolol XL (24 HR) Succ 25 MG TAB.ER.24H PO SCH ×2 (08:01→12:00)
[2018-09-09] MEDS: Furosemide 40 MG TABLET PO SCH (08:01)
--- NOTE | 2018-09-09 10:46 | Discharge Summary ---
Orders not resulted at time of discharge: Pending orders 09/10/18 04:00 BMP [Basic Metabolic Panel] AM 0400 Date of Encounter: 09/09/18 Time of Encounter: 10:41 - Discharge Diagnosis (1) Anterior and lateral ST segment elevation Priority: Primary Status: Acute (2) Systolic CHF Priority: Secondary Status: Acute Qualifiers: Heart failure chronicity: acute Qualified Code(s): I50.21 - Acute systolic (congestive) heart failure (3) Ischemic cardiomyopathy Priority: Secondary Status: Acute (4) A-fib Priority: Secondary Status: Acute Qualifiers: Atrial fibrillation type: unspecified Qualified Code(s): I48.91 - Unspecified atrial fibrillation - Hospital Course Hospital course: Mr. Rod is a 63 year old male that presented 08/24/18 as anterior and lateral STEMI, taken emergently to dock [facility] pier lab[facility]. S/P C 08/24/18--Patient had successful PTCA/Drug-Eluting Stent placement in the mid LAD. Patient had successful PTCA in the Diagonal. Remaining 99% RPDA lesion s/p staged PCI/[place] 08/26. DAPT uninterrupted. Pt verbalizes understanding. On asa, plavix, statin and BB. Reported continued shortness of breath and brilinta was stopped, switched to Plavix. He presented in A-Fib, unclear chronicity, new diagnosis. A-Fib. HR at bedside 90s. 12 hr tele AVG HR 96, remains atrial fibrillation. On Toprol XL 12.5 mg PO daily. Systolic BP 90s to 100s. Off digoxin and amiodarone. [id number] 3 (Age, CAD, CHF). High CVA risk. Eliquis dick check at [facility] was $95/mo. does not think they have all of his insurance on file. Agreeable to start Eliquis with 30 day free card and determine dick outpt. Pt will be on triple therapy (ASA, Brilinta, Eliquis) x 1 month, then will plan to stop ASA as outpt after 1 month. No bleeding noted. TTE LVEF 30-35%. Severe segmental left ventricular systolic dysfunction. Repeat limited echo: LVEF 25-30%. Severe segmental left ventricular systolic dysfunction. Mild LV dilatation with mild eccentric LVH. Mild RV hypokinesis. Mild bi-atrial dilatation. Large pleural effusion. On BB. Not taking LAMAR inhibitor/ARB due to hypotension. Plan to repeat limited TTE in 40 days as outpt to re-evaluate EF. If EF remains <35%, will refer for ICD. No events noted on telemetry. Has lifevest to be worn at d/c. Pt was in acute systolic CHF during stay. Had been on dopamine, dobutamine drip and lasix drip during stay. Now off and net negative ~6.6L. Patient now on RA, did not qualify for daytime O2. Decreased O2 sats in the 80's at night. Has qualified for Home O2 NC 2L at night. Script on chart. Has been transitioned to Lasix 40 mg PO BID. Strict i/os, fluid/Na restriction, daily weights. CHF teaching discussed. LLL mild crackles on exam. CXR repeated this AM--Continued vascular congestion. Bibasilar atelectasis or pulmonary edema. Pneumonia, especially in the left base, is a differential possibility. Pt has been afebrile with normal WBC during stay--suspect CXR continues to be reflective of edema. D/C home in stable condition. Will coordinate outpt follow-up within 1 week. - Time Spent with Patient Total time spent providing and/or coordinating discharge services: Greater than 30 minutes - Discharge Medications Prescriptions: Nitroglycerin 0.4 mg SL Q5MIN PRN #30 tab.subl PRN Reason: Chest Pain Apixaban [Eliquis] 5 mg PO BID #60 tablet Aspirin 81 mg PO DAILY #30 tab.chew Atorvastatin [Lipitor] 80 mg PO HS #30 tablet Clopidogrel [Plavix] 75 mg PO DAILY #30 tablet Furosemide [Lasix] 40 mg PO BIDDIURETIC #60 tablet Metoprolol XL (24 HR) Succ [Toprol Xl] 12.5 mg PO DAILY #15 tab.er.24h Omeprazole [PriLOSEC] 20 mg PO BIDAC #60 capsule.dr Potassium Chloride 40 meq PO DAILY #30 tab.er.prt Home Medications: Apixaban [Eliquis] 5 mg PO BID #60 tablet 09/09/18 [Rx] Aspirin 81 mg PO DAILY #30 tab.chew 09/09/18 [Rx] Atorvastatin [Lipitor] 80 mg PO HS #30 tablet 09/09/18 [Rx] Clopidogrel [Plavix] 75 mg PO DAILY #30 tablet 09/09/18 [Rx] Furosemide [Lasix] 40 mg PO BIDDIURETIC #60 tablet 09/09/18 [Rx] Metoprolol XL (24 HR) Succ [Toprol Xl] 12.5 mg PO DAILY #15 tab.er.24h 09/09/18 [Rx] Nitroglycerin 0.4 mg SL Q5MIN PRN #30 tab.subl 09/09/18 [Rx] Omeprazole [PriLOSEC] 20 mg PO BIDAC #60 capsule.dr 09/09/18 [Rx] Potassium Chloride 40 meq PO DAILY #30 tab.er.prt 09/09/18 [Rx] Allergies/Adverse Reactions: Allergy/AdvReac Type Severity Reaction Status Date / Time vancomycin Allergy See Verified 08/24/18 17:30 Comments Date of admission: 08/24/18 13:47 Primary care physician: Shad Macdonald MD Consults: 08/24/18 13:47 Consult to Cardiac Rehabilitation-Phase1 [CONS] Routine Comment: Reason for Consult: AMI Call Completed: Yes Consult to Nurse Navigator [CONS] Routine Comment: 08/26/18 15:46 Consult to Nurse Navigator [CONS] Routine Comment: CHF 08/28/18 12:20 Consult to Respiratory Therapy [CONS] Routine Reason for Consult: overnight trending pulse ox Call Completed: No 09/02/18 12:06 Consult to Urology [CONS] Routine Consulting Provider: Urology Meri Reason for Consult: Monitoring strict I/Os due to hemodynamic status. Patient is on vasopressors and Lasix gtt. Unable to place sanchez. Met resistance. Call Completed: Yes 09/03/18 09:55 Consult to Physical Therapy [CONS] Routine Comment: Evaluate, develop and implement POC Reason for Consult: eval and treat Does patient have active BEDREST order?: No Is patient medically & hemodynamically stable?: Yes Patient assessed for mobility or mobilized this visit?: No 09/03/18 10:00 Consult to Online Producer [CONS] Routine Reason for SW Consult: DC planning 09/09/18 08:45 dietary consult [Consult to Nutrition] [CONS] Routine Comment: Consulting Provider: NUTRITION Reason for Dietary Consult: Diet Education Discharging clinician: Josh Ha Anticipated date of discharge: 09/09/18 Physical Examination Vital Signs, Last 4 Hours Temp Pulse Resp BP Pulse Ox 09/09/18 07:20 97.3 F L 98 18 89/76 90 Vital Signs Temp Pulse Resp BP Pulse Ox 09/09/18 07:20 97.3 F L 98 18 89/76 90 09/09/18 03:22 97.5 F L 89 20 98/70 90 09/08/18 23:14 98.4 F 106 16 99/78 95 09/08/18 20:16 98.2 F 84 18 96/78 92 09/08/18 16:23 97.7 F 105 18 91/71 96 09/08/18 12:22 95 09/08/18 11:00 97.6 F 83 18 86/69 94 Intake and Output 09/08/18 09/09/18 09/09/18 23:59 07:59 15:59 Intake Total 200 / 200 300 / 300 Output Total 350 / 350 Balance 200 / 200 -350 / -350 300 / 300 Intake: Oral 200 / 200 300 / 300 Output: Urine 350 / 350 Other: Weight 81.3 kg Patient Weight 09/09/18 23:59 Weight 81.3 kg General: Conversant, No Apparent Distress HEENT: Atraumatic, Normocephaly, Mucus Membranes Moist Neck: No JVD, Normal carotid pulses Cardiac: Other (irregularly irregular) Lungs: Other (mild LLL crackles) Neuro: Alert and responsive, No focal deficits noted Abdomen: Soft, Non-Tender Skin: No rashes noted on visualized skin Musculoskeletal: No Chest Wall Tenderness Extremities: No Clubbing, No Cyanosis, No Edema, Normal Pulses - Patient Status Disposition: Home, Self-Care Condition: Fair Functional capacity at discharge: independent ambulation Overall status at discharge: patient is progressing back to baseline - Discharge Instructions Instructions: Chest Pain (ED) Follow Up With: Josh Ha CNP [Advanced Practice Nurse] - (Office will call the patient home with follow up appointment) Chiquita Byrne CNP [Advanced Practice Nurse] - 09/11/18 1:00 pm Forms: ED Satisfaction Letter Additional Instructions: RISK FACTORS: STOP SMOKING: If you smoke, STOP. Smoking or tobacco use significantly increases your risk of heart disease because nicotine causes the arteries to narrow or constrict. It also causes fats to stick to the artery. Your chances of having a heart attack are greatly increased if you continue to smoke. For more information, call the education line for smoking cessation 2-496-NSVRJBM EAT A LOW FAT/CHOLESTEROL/SODIUM DIET: This diet may help reduce your chances of having a heart attack. LIFTING: Avoid lifting anything more than 10 pounds for 5-7 days Prior to straining, laughing, sneezing and/or coughing, apply manual pressure directly over insertion site. ACTIVITY: You may walk or climb stairs as tolerated You can resume sexual activity as tolerated In general, you are encouraged to engage in a minimum of 30 minutes or more of moderate intensity physical activity, such as brisk walking, daily or at least 3-4 times weekly BATHING Do not submerge the site into water (bath tub, hot tub, swimming pool) for 1 week. This can be a source for infection into the blood stream. You may shower after 24 hours SITE CARE: After 24 hours, you may remove the dressing and leave the site open to air. Keep the site clean and dry. Clean gently and pat dry. You can expect bruising and tenderness that gradually resolve within a week or two. Return to work as instructed per your physician Resume driving as instructed per physician Keep all scheduled follow up appointments Resume medications as instructed IMPORTANT: If prescribed a Platelet Aggregation Inhibitor such as, Plavix, Brilinta or Effient: Duration of therapy is minimum one year These medications are often used in combination with Aspirin in prevention of future heart attacks Never discontinue unless consult with your Director Instrumentation STROKE (CVA) Risk factors for a stroke are: Age, cigarette smoking, diabetes, excessive alcohol consumption, family history, high blood pressure, overweight, physical inactivity, prior stroke, heart attack, diagnosis of carotid artery stenosis or other artery disease. Warning signs: Sudden numbness or weakness of the face, arm or leg; especially on one side of the body, sudden confusion, trouble speaking or understanding, sudden trouble seeing in one or both eyes, sudden trouble walking, dizziness, loss of balance or coordination, sudden severe headache with no cause. Call 911 or go to the Emergency Room. CONGESTIVE HEART FAILURE: If you have been diagnosed with Congestive Heart Failure (CHF) and your symptoms return, make an appointment with your physician Weigh yourself daily. Notify your physician if you have a weight gain of two or more pounds in one day or five or more pounds in one week. If you experience any difficulty breathing, please call 911 BLEEDING: Although the risk of bleeding is minimal, it can happen. If you have any bleeding from the site, apply firm pressure above the puncture site for 10-15 minutes. If the bleeding does not stop, continue manual pressure and call 911 Contact your physician if: You develop a fever greater than 101 degrees Fahrenheit Your site becomes reddened or has any drainage You have an increase in pain or burning at the site or if a large knot forms at the site. If you experience chest pain, shortness of breath, dizziness, or extreme tiredness, stop the activity and rest. Please notify your physicians office if you experience any of these symptoms and they are not relieved by rest please call 911! - Diet and Activity Activity: increase activity as tolerated Diet: low fat, low cholesterol, low salt diet
== END 2018-09-09 14:38 | disposition home or self-care (01) | DRG 246 ==
LOC: ICNU 12:36 → EMEROOARM 12:36 → ICNU 12:57 → 2NNU 08-26 19:35
PROVIDERS: ADMIT Internal Medicine Cardiovascular Disease; ATTEND Internal Medicine Cardiovascular Disease

== ENCOUNTER 2018-09-14 18:11 | Inpatient (IN) ==
[2018-09-14 19:04] LABS: VBG HCO3 24 mEq/L (21-27); VBG PCO2 39 mmHg (41-51); VBG PO2 41 mmHg (25-50)
[2018-09-14] MEDS ORDERED: Isovue-370 500 ML BOTTLE IVP ONE (19:04)
--- NOTE | 2018-09-14 19:06 | Emergency Department Note ---
Disposition Clinical Impression: NSTEMI (non-ST elevation myocardial infarction) Congestive heart failure Qualifiers: Heart failure type: unspecified Heart failure chronicity: acute on chronic Qualified Code(s): I50.9 - Heart failure, unspecified Pneumonia Qualifiers: Pneumonia type: due to unspecified organism Laterality: bilateral Lung location: unspecified part of lung Qualified Code(s): J18.9 - Pneumonia, uns pecified organism Disposition: Admitted As Inpatient Condition: Good Time of Disposition: 21:30 General Adult HPI - General Chief complaint: ED Shortness of Breath/Dyspnea Stated complaint: SOB Time Seen by Provider: 09/14/18 18:19 Source: patient Limitations: no limitations Nursing Notes Reviewed: Yes Vital Signs Reviewed: Yes - History of Present Illness HPI Narrative: Patient presents emergency department with shortness of breath. He did have a STEMI on August 24. Patient was kept in the hospital for proximally 17 days. He reports that he has had shortness of breath ever since. He reports it is gotten significantly worse recently. States that on Friday he was seen by his PCP who started him on antibiotics. Patient was noted to have an ejection fra ction less than 25% after his cardiac catheterization. He was wearing a [employer] device whenever he came in. He denies any cough. He states that shortness of breath is episodic. Patient does report a left-sided chest pain. He states that this is how he felt whenever he had his heart attack. Pain Scale: 0 - Related Data Home Medications Medication Instructions Recorded Confirmed Atorvastatin Calcium [Lipitor] 80 mg PO HS 09/14/18 09/14/18 hydrOXYzine HCl [Hydroxyzine HCl] 25 mg PO BID PRN 09/14/18 09/14/18 levoFLOXacin [Levofloxacin] 750 mg PO DAILY 09/14/18 09/14/18 Previous Rx's Medication Instructions Recorded Apixaban [Eliquis] 5 mg PO BID #60 tablet 09/09/18 Aspirin 81 mg PO DAILY #30 tab.chew 09/09/18 Clopidogrel [Plavix] 75 mg PO DAILY #30 tablet 09/09/18 Furosemide [Lasix] 40 mg PO BIDDIURETIC #60 tablet 09/09/18 Metoprolol XL (24 HR) Succ [Toprol 12.5 mg PO DAILY #15 tab.er.24h 09/09/18 Xl] Nitroglycerin 0.4 mg SL Q5MIN PRN #30 tab.subl 09/09/18 Omeprazole [PriLOSEC] 20 mg PO BIDAC #60 capsule. 09/09/18 Potassium Chloride 40 meq PO DAILY #30 tab.er.prt 09/09/18 Allergies Allergy/AdvReac Type Severity Reaction Status Date / Time vancomycin Allergy See Verified 09/14/18 21:46 Comments All systems ED: reviewed and negative except as stated. Review of Systems: As Per HPI Constitutional: Denies: fever, chills ENT ED: Denies: congestion Cardiovascular: Reports: chest pain. Denies: palpitations, syncope Respiratory: Reports: dyspnea. Denies: cough, sputum production Gastrointestinal: Denies: abdominal pain, nausea, vomiting, diarrhea Genitourinary: Denies: urgency, dysuria, frequency Past Medical History - Past Medical History Attestation: Yes The following information was validated with the patient. Source: patient Medical history: Reports: atrial fibrillation, coronary artery disease, hyperlipidemia, myocardial infarction Psychiatric history: Reports: no psych history - Social History Smoking Status: Former smoker Smokeless Tobacco Status: No Alcohol use: Reports: none Drug use: Reports: none Physical Exam - General Limitations: no limitations General appearance: alert, in no apparent distress - Head Head exam: atraumatic, normocephalic, normal inspection - Eye Eye exam: Present: normal appearance, PERRL, EOMI - ENT ENT exam: normal exam, normal oropharynx, mucous membranes moist - Neck Neck exam: Present: normal inspection, full ROM, trachea midline - Chest Chest inspection: Present: normal inspection, symmetric chest wall rise - Respiratory Respiratory exam: Present: other (Diminished in the bases.). Absent: respiratory distress, accessory muscle use - Cardiovascular Cardiovascular exam: Present: regular rate, normal rhythm, normal heart sounds - Abdominal Exam Abdominal exam: Present: soft, Non-Tender. Absent: tenderness, distention, guarding, rebound, rigidity, organomegaly - Extremities Exam Extremities exam: Present: normal inspection, full ROM, normal capillary refill. Absent: tenderness, pedal edema - Back Exam Back exam: Present: normal inspection, full ROM. Absent: tenderness - Neurological Exam Neurological exam: Present: alert, oriented X3 - Psychiatric Psychiatric exam: Present: normal affect, normal mood - Skin Skin exam: Present: warm, dry, intact, normal color Course Course Narrative: Patient complaining of chest pain and shortness of breath. Has a known pleural effusion. Also non-extremely low ejection fraction. Recent heart stents placed here. He was started on antibiotics Friday for a presumed pneumonia. He is dyspneic on exam. He reports that this feels the same as his previous heart attack. CTA was performed. Concern for multifocal pneumonia versus CHF exacerbation. I do believe that this is more likely a CHF exacerbation. He did have an EKG done that showed atrial fibrillation at a rate of 133. He was very anxious during this however it did slow down with no medication. He was in the 90s on my last evaluation. He did not have ST elevation on the EKG. Patient was placed on Levaquin on Friday for a presumed pneumonia. We will start patient on antibiotic at this time for a concern for pneumonia as patient has been already treated for this. He is agreeable to admission at this time however is reluctant however agreeable. Patient does take Plavix Xarelto and aspirin at home. He reports that he has been compliant with his medication. - Reevaluation(s) Reevaluation #1: Patient CT is concerning for CHF versus multifocal pneumonia. We did place patient on antibodies. We will admit him to the hospital. We did provide him with Lasix as well. Vital Signs Temperature 97.3 F L 09/14/18 18:17 Pulse Rate 96 09/14/18 18:17 Respiratory Rate 20 09/14/18 18:17 Blood Pressure 95/67 09/14/18 18:17 O2 Sat by Pulse Oximetry 95 09/14/18 18:17 Temperature 97.3 F L 09/14/18 18:17 Pulse Rate 106 09/14/18 21:00 Respiratory Rate 19 09/14/18 21:00 Blood Pressure 101/69 09/14/18 21:00 O2 Sat by Pulse Oximetry 98 09/14/18 21:00 Oxygen Delivery Oxygen Delivery Room Air Medical Decision Making - Medical Records Medical records reviewed: Yes I reviewed the patient's medical records. - Lab Data Lab results reviewed: Yes I reviewed the patient's lab results. Result diagrams: 09/14/18 18:33 09/14/18 18:33 Lab Results 09/14/18 09/14/18 09/14/18 Range/Units 18:33 18:33 18:33 WBC 8.9 (4.3-11.1) K/mcL RBC 4.55 (4.19-5.50) M/mcL Hgb 13.8 (12.9-16.9) g/dL Hct 40.9 (37.5-50.1) % MCV 89.9 (83.0-100.0) fL MCH 30.3 (28.0-33.3) pg MCHC 33.7 (31.6-35.5) g/dL RDW 13.6 (11.5-14.5) % Plt Count 348 (140-400) K/mcL MPV 10.0 (9.4-12.4) fL Immature Gran % 0.4 (0-4) % Seg Neutrophils % 57.0 % Lymphocytes % 32.6 % Monocytes % 8.1 % Eosinophils % 1.2 % Basophils % 0.7 % Neutrophils # 5.1 (1.6-8.9) K/mcL Lymphocytes # 2.9 (0.6-4.6) K/mcL Monocytes # 0.7 (0.0-1.3) K/mcL Eosinophils # 0.1 (0.0-0.6) K/mcL Basophils # 0.1 (0.0-0.2) K/mcL PT 20.0 H (9.4-12.1) Seconds INR 1.8 APTT 39.4 H (26.0-36.0) Seconds D-Dimer 740 H (0-500) ng/mLFEU VBG pH (7.32-7.42) pH Units VBG pCO2 (41-51) mmHg VBG pO2 (25-50) mmHg VBG HCO3 (21-27) mEq/L Sodium 141 (136-145) mEq/L Potassium 4.3 (3.5-5.1) mEq/L Chloride 104 (98-107) mEq/L Carbon Dioxide 23 (23-29) mEq/L BUN 20 (8-23) mg/dL Creatinine 1.12 (0.70-1.30) mg/dL Est GFR ( Amer) > 60 (> 60) Est GFR (Non-Af Amer) > 60 (> 60) BUN/Creatinine Ratio 18 (6-26) Glucose 99 (70-105) mg/dL Calculated Osmolality 295 (280-300) Lactic Acid (0.5-2.2) mmol/L Calcium 9.8 (8.6-10.3) mg/dL Troponin I 0.13 H* (< 0.04) ng/mL B-Natriuretic Peptide (Less than 100) pg/mL 09/14/18 09/14/18 09/14/18 Range/Units 18:33 19:01 19:18 WBC (4.3-11.1) K/mcL RBC (4.19-5.50) M/mcL Hgb (12.9-16.9) g/dL Hct (37.5-50.1) % MCV (83.0-100.0) fL MCH (28.0-33.3) pg MCHC (31.6-35.5) g/dL RDW (11.5-14.5) % Plt Count (140-400) K/mcL MPV (9.4-12.4) fL Immature Gran % (0-4) % Seg Neutrophils % % Lymphocytes % % Monocytes % % Eosinophils % % Basophils % % Neutrophils # (1.6-8.9) K/mcL Lymphocytes # (0.6-4.6) K/mcL Monocytes # (0.0-1.3) K/mcL Eosinophils # (0.0-0.6) K/mcL Basophils # (0.0-0.2) K/mcL PT (9.4-12.1) Seconds INR APTT (26.0-36.0) Seconds D-Dimer (0-500) ng/mLFEU VBG pH 7.40 (7.32-7.42) pH Units VBG pCO2 39 L (41-51) mmHg VBG pO2 41 (25-50) mmHg VBG HCO3 24 (21-27) mEq/L Sodium (136-145) mEq/L Potassium (3.5-5.1) mEq/L Chloride (98-107) mEq/L Carbon Dioxide (23-29) mEq/L BUN (8-23) mg/dL Creatinine (0.70-1.30) mg/dL Est GFR ( Amer) (> 60) Est GFR (Non-Af Amer) (> 60) BUN/Creatinine Ratio (6-26) Glucose (70-105) mg/dL Calculated Osmolality (280-300) Lactic Acid 1.8 (0.5-2.2) mmol/L Calcium (8.6-10.3) mg/dL Troponin I (< 0.04) ng/mL B-Natriuretic Peptide 1043 H (Less than 100) pg/mL 09/14/18 Range/Units 21:04 WBC (4.3-11.1) K/mcL RBC (4.19-5.50) M/mcL Hgb (12.9-16.9) g/dL Hct (37.5-50.1) % MCV (83.0-100.0) fL MCH (28.0-33.3) pg MCHC (31.6-35.5) g/dL RDW (11.5-14.5) % Plt Count (140-400) K/mcL MPV (9.4-12.4) fL Immature Gran % (0-4) % Seg Neutrophils % % Lymphocytes % % Monocytes % % Eosinophils % % Basophils % % Neutrophils # (1.6-8.9) K/mcL Lymphocytes # (0.6-4.6) K/mcL Monocytes # (0.0-1.3) K/mcL Eosinophils # (0.0-0.6) K/mcL Basophils # (0.0-0.2) K/mcL PT (9.4-12.1) Seconds INR APTT (26.0-36.0) Seconds D-Dimer (0-500) ng/mLFEU VBG pH (7.32-7.42) pH Units VBG pCO2 (41-51) mmHg VBG pO2 (25-50) mmHg VBG HCO3 (21-27) mEq/L Sodium (136-145) mEq/L Potassium (3.5-5.1) mEq/L Chloride (98-107) mEq/L Carbon Dioxide (23-29) mEq/L BUN (8-23) mg/dL Creatinine (0.70-1.30) mg/dL Est GFR ( Amer) (> 60) Est GFR (Non-Af Amer) (> 60) BUN/Creatinine Ratio (6-26) Glucose (70-105) mg/dL Calculated Osmolality (280-300) Lactic Acid 1.7 (0.5-2.2) mmol/L Calcium (8.6-10.3) mg/dL Troponin I (< 0.04) ng/mL B-Natriuretic Peptide (Less than 100) pg/mL - Radiology Data Radiology results reviewed: Yes I reviewed the patient's radiology results. Chest X-Ray 09/14/18 18:24 IMPRESSION: 1. Stable small left pleural effusion with basilar atelectasis and/or consolidation. 2. A right pleural effusion is no longer seen. However the right basilar opacities are present which may represent pneumonia. D/ / Hamzah Mena MD / Hamzah Mena MD Interpreting Provider: Hamzah Mena MD Chest CTA 09/14/18 19:04 IMPRESSION: No evidence of a pulmonary embolus. There are right larger than left bilateral pleural effusions, patchy bilateral ground-glass airspace disease, small nonspecific mediastinal lymph nodes and mild cardiomegaly. Findings likely represent multifocal pneumonia with parapneumonic pleural effusions. Manifestation of congestive heart failure not excluded. Clinical correlation recommended. D/ / Demarcus Cardona MD / Demarcus Cardona MD Interpreting Provider: Demarcus Cardona MD - EKG Data EKG #1 EKG attestation: Yes I reviewed and interpreted this EKG. EKG results narrative: Atrial fibrillation a rate of 133. QRS duration is 89. QT is 334. QTC is 495. No signs of acute ischemia. Poor R-wave progression. Does have T-wave in version in lead V6. Attestation Statement - Attestation Attestation: I, Travis Dietz, examined this patient and my medical decision-making was reviewed with the BOTANY TECHNICIAN/PA/Advanced Practice Nurse/Resident Physician. I agree with the documented findings, disposition and treatment plan as described except to the extent set forth below. 63-year-old male presents emergency Department with concerns of shortness of breath. Patient states he was recently admitted to the hospital for a heart attack and had stents placed. Patient states the hospital for protracted time and continued to be short of breath. Patient states he returned home and had persistent shortness of breath. He states he is unable to ambulate without severe dyspnea. Patient is satting on percent on room air in the emergency department. He has an external defibrillator in place. Laboratory evaluation did not show significant abnormality. Chest x-ray showed a possible multifocal pneumonia. Because the patient's recent hospital stay he will require his A ntibiotics. CTA did not show evidence of PE. Patient will be admitted to the hospital for further care and evaluation.
[2018-09-14 19:09] LABS: Basophils # 0.1 K/mcL (0.0-0.2); Basophils % 0.7 %; Eosinophils # 0.1 K/mcL (0.0-0.6); Eosinophils % 1.2 %; Hematocrit 40.9 % (37.5-50.1); Hemoglobin 13.8 g/dL (12.9-16.9); Immature Granulocytes % 0.4 % (0-4); Lymphocytes # 2.9 K/mcL (0.6-4.6); Lymphocytes % 32.6 %; Mean Corpuscular HGB Conc 33.7 g/dL (31.6-35.5); Mean Corpuscular Hemoglobin 30.3 pg (28.0-33.3); Mean Corpuscular Volume 89.9 fL (83.0-100.0); Monocytes # 0.7 K/mcL (0.0-1.3); Monocytes % 8.1 %; Neutrophils # 5.1 K/mcL (1.6-8.9); Platelet Count 348 K/mcL (140-400); Red Blood Count 4.55 M/mcL (4.19-5.50); Red Cell Distribution Width 13.6 % (11.5-14.5)
[2018-09-14 19:18] LABS: INR 1.8
[2018-09-14 19:20] LABS: Activated Partial Thrombo Time 39.4 Seconds (26.0-36.0)
[2018-09-14 19:23] LABS: BUN/Creatinine Ratio 18 (6-26); Blood Urea Nitrogen 20 mg/dL (8-23); Calcium 9.8 mg/dL (8.6-10.3); Carbon Dioxide 23 mEq/L (23-29); Chloride 104 mEq/L (98-107); Glucose 99 mg/dL (70-105); Osmolality,Calculated 295 (280-300); Potassium 4.3 mEq/L (3.5-5.1); Sodium 141 mEq/L (136-145); eGFR For Non-African Americans > 60 (> 60)
[2018-09-14 19:33] LABS: Troponin I 0.13 ng/mL (< 0.04)
[2018-09-14] MEDS ORDERED: *HR* Heparin 5,000 UNIT/ML VIAL IVP PRN ×2 (20:43)
[2018-09-14] MEDS ORDERED: *HR* Heparin 5,000 UNIT/ML VIAL IVP ONE (20:43)
[2018-09-14] MEDS ORDERED: Heparin 25,000 UNIT/500 ML D5W 25,000 UNIT/500 ML BAG IVC SCH (20:45)
[2018-09-14] MEDS ORDERED: Piperacillin/Tazobactam 3.375 GM in 0.9 % Sodium Chloride Mini Bag 100 ML IVPB ONE (21:02)
[2018-09-14] MEDS ORDERED: Furosemide 40 MG/4 ML VIAL IVP ONE (21:29)
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
[2018-09-14] MEDS ORDERED: Naloxone 0.4 MG/ML INJ IVP PRN ×2 (23:19)
[2018-09-14] MEDS ORDERED: Nitroglycerin 0.4 MG TAB.SUBL SL PRN (23:21)
[2018-09-15 05:37] LABS: Basophils # 0.1 K/mcL (0.0-0.2); Basophils % 0.8 %; Eosinophils # 0.2 K/mcL (0.0-0.6); Eosinophils % 2.7 %; Hematocrit 35.4 % (37.5-50.1); Hemoglobin 12.4 g/dL (12.9-16.9); Immature Granulocytes % 0.3 % (0-4); Lymphocytes # 2.4 K/mcL (0.6-4.6); Lymphocytes % 31.5 %; Mean Corpuscular Hemoglobin 30.3 pg (28.0-33.3); Mean Corpuscular Volume 86.6 fL (83.0-100.0); Mean Platelet Volume 10.2 fL (9.4-12.4); Monocytes # 0.7 K/mcL (0.0-1.3); Monocytes % 8.5 %; Neutrophils # 4.3 K/mcL (1.6-8.9); Platelet Count 290 K/mcL (140-400); Red Blood Count 4.09 M/mcL (4.19-5.50); Red Cell Distribution Width 13.7 % (11.5-14.5); Segmented Neutrophils % 56.2 %
[2018-09-15 05:55] LABS: BUN/Creatinine Ratio 16 (6-26); Blood Urea Nitrogen 17 mg/dL (8-23); Calcium 9.1 mg/dL (8.6-10.3); Carbon Dioxide 24 mEq/L (23-29); Chloride 105 mEq/L (98-107); Glucose 94 mg/dL (70-105); Osmolality,Calculated 289 (280-300); Potassium 3.4 mEq/L (3.5-5.1); Sodium 139 mEq/L (136-145); eGFR For Non-African Americans > 60 (> 60)
[2018-09-15] MEDS ORDERED: Furosemide 40 MG TABLET PO SCH (08:00)
[2018-09-15] MEDS: Aspirin 81 MG TAB.CHEW PO SCH (09:52)
[2018-09-15] MEDS: Furosemide 40 MG/4 ML VIAL IVP SCH ×2 (09:52→21:19)
[2018-09-15] MEDS: Metoprolol XL (24 HR) Succ 25 MG TAB.ER.24H PO SCH (09:53)
[2018-09-15] MEDS ORDERED: *HR* Digoxin 0.5 MG/2 ML AMPUL IVP ONE (10:58)
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
--- NOTE | 2018-09-15 12:05 | Internal Med Progress Note ---
Hospitalist Progress Note - Encounter Date of Encounter: 09/15/18 Time of Encounter: 12:00 - Subjective Interval History: 63 year old male with recent STEMI on 08/16/18 where patient had stent placement in mid LAD and PTCA diagonal. Patient also has history of A. fib. Patient had a 16 day stay. Was released past Friday. Since that time patient has been short of breath. Shortness of breath is worse with lying down. Does not admit to any exertional dyspnea. States he is able to walk 1/8th a mile today. Patient states he has mild conversational dyspnea. Patient and his monitor his intake and output. Patient was noting that he is having decreased output. Patient's called signal repairer who recommended a primary care evaluation. Primary care physician was concerned for pneumonia was placed on Levaquin today. Patient had one dose Levaquin. CTA negative for PE found bilateral pleural effusions right greater the left concern for multifocal pneumonia versus congestive heart failure exacerbation. - Exam Vitals: Temp Pulse Resp BP Pulse Ox 97.1 F L 63 13 100/67 97 09/15/18 11:20 09/15/18 11:20 09/15/18 08:06 09/15/18 11:20 09/15/18 11:20 Exam: Gen - Awake, alert, oriented x 3, no acute distress HEENT - NCAT, PERRLA, EOMI, hearing grossly intact, oropharynx benign CV - RRR, normal S1 and S2, no M/R/G, no BLE edema Resp - decreased breath sounds GI - Soft, NT/ND, no masses, normal bowel sounds, Skin - Warm, dry, no rashes/lesions/ulcers Psych - Normal mood and affect, no depression or anxiety - Assessment and Plan (1) Multifocal pneumonia Current Visit: Yes Status: Acute Assessment and Plan: Pt comes in with shortness of breath s/p recent hospital discharge. CT chest shows bilateral pleural effusions which appears to be parapneumonic Started on zosyn for multifocal pneumonia/ bacterial HCAP. Obtain cultures. Had thoracentesis done with removal of fluid. Follow up pleural fluid analysis and c ulture fluid if indicated (2) Acute systolic CHF (congestive heart failure), NYHA class 3 Current Visit: Yes Status: Acute Assessment and Plan: Pt has acute worsening of chronic systolic CHF. continue diuresis with lasix. Monitor ins and outs (3) A-fib Current Visit: Yes Status: Acute Assessment and Plan: On digoxin and eliquis. cardiology on board (4) Hypokalemia Current Visit: Yes Status: Acute Assessment and Plan: Replaced (5) Elevated troponin Current Visit: Yes Status: Acute Assessment and Plan: Pt has elevated troponins likely 2/2 to demand ischemia. Check limited echo Cardiology following (6) CAD (coronary artery disease) Current Visit: Yes Status: Acute Assessment and Plan: Continue aspirin and plavix (7) DVT prophylaxis Current Visit: Yes Status: Acute - Time Spent with Patient Total time spent is greater than 50% in coordination of care (as documented) at patient's floor/unit and/or counseling patient: Internal Medicine: Result - Labs CBC & Chem 7: 09/15/18 04:58 09/15/18 04:58 Labs: Short CBC 09/14/18 09/15/18 Range/Units 18:33 04:58 WBC 8.9 7.7 (4.3-11.1) K/mcL Hgb 13.8 12.4 L (12.9-16.9) g/dL Hct 40.9 35.4 L (37.5-50.1) % Plt Count 348 290 (140-400) K/mcL Neutrophils # 5.1 4.3 (1.6-8.9) K/mcL BMP 09/14/18 09/15/18 18:33 04:58 Sodium 141 139 Potassium 4.3 3.4 L Chloride 104 105 Carbon Dioxide 23 24 BUN 20 17 Creatinine 1.12 1.09 Glucose 99 94 Calcium 9.8 9.1 Cardiac Enzymes 09/14/18 09/15/18 09/15/18 Range/Units 18:33 00:56 04:58 Troponin I 0.13 H* 0.12 H* 0.12 H* (< 0.04) ng/mL - ABG Interpretation ABG results: PT/INR, D-dimer PT 20.0 Seconds (9.4-12.1) H 09/14/18 18:33 D-Dimer 740 ng/mLFEU (0-500) H 09/14/18 18:33 - Impressions Impressions Chest X-Ray 09/14/18 18:24 IMPRESSION: 1. Stable small left pleural effusion with basilar atelectasis and/or consolidation. 2. A right pleural effusion is no longer seen. However the right basilar opacities are present which may represent pneumonia. D/ / Hamzah Mena MD / Hamzah Mena MD Interpreting Provider: Hamzah Mena MD Chest CTA 09/14/18 19:04 IMPRESSION: No evidence of a pulmonary embolus. There are right larger than left bilateral pleural effusions, patchy bilateral ground-glass airspace disease, small nonspecific mediastinal lymph nodes and mild cardiomegaly. Findings likely represent multifocal pneumonia with parapneumonic pleural effusions. Manifestation of congestive heart failure not excluded. Clinical correlation recommended. D/ / Demarcus Cardona MD / Demarcus Cardona MD Interpreting Provider: Demarcus Cardona MD Consult Discharge Plan - Plan Referrals: Shad Macdonald MD [Primary Care Provider] - 09/24/18 1:00 pm () (3) A-fib Qualifiers: Atrial fibrillation type: unspecified Qualified Code(s): I48.91 - Unspecified atrial fibrillation (6) CAD (coronary artery disease) Qualifiers: Coronary Disease-Associated Artery/Lesion type: [place] artery [place] vs. transplanted heart: [place] heart Associated angina: angina presence unspecified Qualified Code(s): I25.10 - Atherosclerotic heart disease of [place] coronary artery without angina pectoris
[2018-09-15] MEDS: Apixaban 5 MG TABLET PO SCH ×2 (13:16→21:19)
[2018-09-15] MEDS: Piperacillin/Tazobactam 3.375 GM in 0.9 % Sodium Chloride Mini Bag 100 ML IVPB SCH ×2 (13:16→21:19)
--- NOTE | 2018-09-15 16:18 | IR Procedure Note ---
Date of procedure: 09/15/18 Consent Obtained: Written consent Timeout: Correct patient and procedure verified, Correct site verified, Time out performed, Skin prep completed Local anesthetic: Lidocaine 1% Indications: bilateral effusion Procedure Performed: bilateral thoracentesis Was there an daycare assistant present: No Site/Technique: bilateral chest Results/Findings: serous fluid on both Estimated blood loss (cc): 0 Complications: None; Tolerated procedure well Post Procedure Treatment Plan: xray Specimen: yes
[2018-09-15] MEDS: *HR* Digoxin 0.5 MG/2 ML AMPUL IVP SCH (16:39)
[2018-09-15 19:09] LABS: Appearance of Pleural Fl Clear (Clear)
[2018-09-15 19:12] LABS: RBC,Pleural Fluid < 0.002 M/mcL
[2018-09-15 19:46] LABS: Amylase,Pleural Fluid < 10 Units/L (No Ref Range); Glucose,Pleural Fluid 101 mg/dL (No Ref Range); LDH,Pleural Fluid 131 Units/L (No Ref Range); Total Protein,Pleural Fluid < 3.0 g/dL (No Ref Range)
[2018-09-16] MEDS: *HR* Digoxin 0.5 MG/2 ML AMPUL IVP SCH (00:34)
[2018-09-16] MEDS: Piperacillin/Tazobactam 3.375 GM in 0.9 % Sodium Chloride Mini Bag 100 ML IVPB SCH ×2 (05:14→13:34)
[2018-09-16 05:35] LABS: Basophils # 0.1 K/mcL (0.0-0.2); Basophils % 0.7 %; Eosinophils # 0.4 K/mcL (0.0-0.6); Eosinophils % 4.6 %; Hematocrit 38.6 % (37.5-50.1); Hemoglobin 12.9 g/dL (12.9-16.9); Immature Granulocytes % 0.2 % (0-4); Lymphocytes # 1.8 K/mcL (0.6-4.6); Lymphocytes % 21.5 %; Mean Corpuscular HGB Conc 33.4 g/dL (31.6-35.5); Mean Corpuscular Hemoglobin 29.8 pg (28.0-33.3); Mean Corpuscular Volume 89.1 fL (83.0-100.0); Mean Platelet Volume 10.3 fL (9.4-12.4); Monocytes # 0.7 K/mcL (0.0-1.3); Monocytes % 7.9 %; Neutrophils # 5.5 K/mcL (1.6-8.9); Platelet Count 266 K/mcL (140-400); Red Blood Count 4.33 M/mcL (4.19-5.50); Red Cell Distribution Width 13.5 % (11.5-14.5); Segmented Neutrophils % 65.1 %
[2018-09-16 05:59] LABS: BUN/Creatinine Ratio 13 (6-26); Blood Urea Nitrogen 16 mg/dL (8-23); Calcium 9.1 mg/dL (8.6-10.3); Carbon Dioxide 23 mEq/L (23-29); Chloride 105 mEq/L (98-107); Glucose 93 mg/dL (70-105); Magnesium 2.2 mg/dL (1.6-2.6); Osmolality,Calculated 289 (280-300); Phosphorous 3.8 mg/dL (2.7-4.5); Potassium 3.7 mEq/L (3.5-5.1); Sodium 139 mEq/L (136-145); eGFR For Non-African Americans > 60 (> 60)
--- NOTE | 2018-09-16 08:13 | Internal Med Progress Note ---
Hospitalist Progress Note - Encounter Date of Encounter: 09/16/18 Time of Encounter: 09:46 - Subjective Interval History: Patient seen and examined this morning at bedside. No acute overnight events. Denies new complains. Feeling well and wants to go home. Denies any chest pain, palpitation, shortness of breath , abdominal pain. 1-2 episode of diarrhea. - Exam Vitals: Temp Pulse Resp BP Pulse Ox 97.4 F L 83 17 107/66 95 09/16/18 07:05 09/16/18 07:05 09/16/18 07:05 09/16/18 07:05 09/16/18 07:05 Exam: General: In no acute distress. Conversant. Respiratory exam: Crackle at Rt lung base. no accessory muscle use, rhonchi, wheezes Cardiovascular exam: RRR, +S1, +S2. no murmur, gallop, rubs. GI/Abdominal exam: Non-tender, Non-distended, normal bowel sounds, soft, no peritoneal signs. Extremities exam: full ROM, no pedal edema, warm, pulses palpable in b/l lower extremities. no calf tenderness Neurological exam: CN II-XII intact, AO X3, no focal deficits. no pronater drif t, facial droop, speech deficit Skin exam: No skin rash, ulcer, purpura or ecchymosis. - Assessment and Plan (1) CAD (coronary artery disease) Current Visit: Yes Status: Acute (2) A-fib Current Visit: Yes Status: Acute (3) DVT prophylaxis Current Visit: Yes Status: Acute (4) Acute systolic CHF (congestive heart failure), NYHA class 3 Current Visit: Yes Status: Acute (5) Elevated troponin Current Visit: Yes Status: Acute (6) Multifocal pneumonia Current Visit: Yes Status: Acute (7) Hypokalemia Current Visit: Yes Status: Acute - Summary of Assessment and Plan Summary of Assessment and Plan: Elevated troponin - likely 2/2 to demand ischemia secondary to CHF - CTA negative for PE. - h/o Ischemic carmiomyopathy with EF of 25-30%. Was last discharged on after STEMI on 08/24/18 and PTCA/[place] and staged PCI to PDA 08/26/18. - Cardiology following. Plan to keep per patient cardio till tomorrow and continue diuresis. Will add aldactone if renal function stable. Abnormal CT - CT chest shows bilateral pleural effusions which appeared to be parapneumonic. Was associated with SOB. - Patient was started on Zosyn. However without Elevated WBC, fever. Pattern typical of CHF. Discussed with pulmonology. - pleural fluid and SOB likely related to CHF given elevated BNP. - Will discontinue antibiotics as pleural fluid analysis favors transudative process. Acute systolic CHF - likely the cause of transudative pleural effusion based on available studies - c/w with lasix 40 BID. Monitor ins and outs A-fib - Started on Digoxin - On eliquis CAD - c/w aspirin, statin, metoprolol and plavix - Time Spent with Patient Total time spent is greater than 50% in coordination of care (as documented) at patient's floor/unit and/or counseling patient: Internal Medicine: Result - Labs CBC & Chem 7: 09/16/18 04:46 09/16/18 04:46 Labs: Short CBC 09/16/18 Range/Units 04:46 WBC 8.4 (4.3-11.1) K/mcL Hgb 12.9 (12.9-16.9) g/dL Hct 38.6 (37.5-50.1) % Plt Count 266 (140-400) K/mcL Neutrophils # 5.5 (1.6-8.9) K/mcL BMP 09/16/18 04:46 Sodium 139 Potassium 3.7 Chloride 105 Carbon Dioxide 23 BUN 16 Creatinine 1.20 Glucose 93 Calcium 9.1 - ABG Interpretation ABG results: PT/INR, D-dimer PT 20.0 Seconds (9.4-12.1) H 09/14/18 18:33 D-Dimer 740 ng/mLFEU (0-500) H 09/14/18 18:33 - Impressions Impressions Thoracentesis 09/15/18 12:03 IMPRESSION: Successful ultrasound guided bilateral thoracentesis. D/ / Jakub Morelos / Jakub Morelos Interpreting Provider: Jakub Morelos Thoracentesis 09/15/18 12:03 IMPRESSION: Successful ultrasound guided bilateral thoracentesis. D/ / Jakub Morelos / Jakub Morelos Interpreting Provider: Jakub Morelos Chest X-Ray 09/15/18 16:12 IMPRESSION: Interval decrease in size of bilateral pleural effusion. No pneumothorax. Slightly increased linear opacity left upper lung, likely atelectasis. D/ / Stefany Brooke MD / Stefany Brooke MD Interpreting Provider: Stefany Brooke MD Consult Discharge Plan - Plan Referrals: Shad Macdonald MD [Primary Care Provider] - 09/24/18 1:00 pm () (1) CAD (coronary artery disease) Qualifiers: Coronary Disease-Associated Artery/Lesion type: [place] artery [place] vs. transplanted heart: [place] heart Associated angina: angina presence unspecified Qualified Code(s): I25.10 - Atherosclerotic heart disease of [place] coronary artery without angina pectoris (2) A-fib Qualifiers: Atrial fibrillation type: unspecified Qualified Code(s): I48.91 - Unspecified atrial fibrillation
[2018-09-16] MEDS: Lactobacillus 1 EACH CAP.SPRINK PO SCH ×2 (09:12→21:05)
[2018-09-16] MEDS: Aspirin 81 MG TAB.CHEW PO SCH (09:12)
[2018-09-16] MEDS: Furosemide 40 MG/4 ML VIAL IVP SCH ×2 (09:12→21:05)
[2018-09-16] MEDS: Metoprolol XL (24 HR) Succ 25 MG TAB.ER.24H PO SCH (09:12)
[2018-09-16] MEDS: Apixaban 5 MG TABLET PO SCH ×2 (09:12→21:05)
[2018-09-16] MEDS: *HR* Digoxin 0.125 MG TABLET PO SCH (09:12)
--- NOTE | 2018-09-16 09:19 | Electrocardiograph Report ---
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
--- NOTE | 2018-09-16 11:07 | Cardiology Progress Note ---
Date of Encounter: 09/16/18 Time of Encounter: 11:05 Assessment and Plan (1) Acute systolic CHF (congestive heart failure), NYHA class 3 Current Visit: Yes Status: Acute Known EF 25-30%. Presents with worsening dyspnea--orthopnea and conversational dyspnea. Compliant with Na and fluid restriction. CTA negative for PE, bilateral pleural effusions right greater the left concern for multifocal pneumonia versus CHF exacerbation. BNP 1043. On IV lasix 40mg BID. Recommend strict I/Os, Na and fluid restriction daily weights. S/P bilateral thoracentesis yesterday--900cc removed from right side, 625cc removed from left. CXR with interval improvement. Will continue IV Lasix today. Repeat CXR tomorrow AM and if stable/improved, will transition to PO Lasix. Home dose was 40mg PO BID. If renal function is stable tomorrow, recommend adding Aldactone 12.5mg daily. Continue to follow. (2) Ischemic cardiomyopathy Current Visit: No Status: Acute EF 25-30% on 08/31, s/p STEMI and revascularization. [facility] Repeat TTE EF remains unchanged. Acute CHF exacerbation as above. Continue BB. Currently not on ACEi/ARB due to hypotension. Will attempt to add Aldactone 12.5mg daily tomorrow. (3) CAD (coronary artery disease) Current Visit: Yes Status: Acute S/P STEMI on 08/24/18. Successful PTCA/NJ to mLAD and PTCA to Diag, followed by staged PCI to right PDA 08/26/18. Reports compliance with DAPT (ASA and Plavix). Continue Statin and BB as BP allows. Qualifiers: Coronary Disease-Associated Artery/Lesion type: [place] artery [place] vs. transplanted heart: [place] heart Associated angina: angina presence unspecifi ed Qualified Code(s): I25.10 - Atherosclerotic heart disease of [place] co ronary artery without angina pectoris (4) A-fib Current Visit: Yes Status: Acute Recent diagnosis of A-Fib. ECG on arrive HR 130s. On Toprol XL 12.5mg daily--BP marginal, unable to increase. Loaded with IV Digoxin yesterday and started PO Digoxin 0.125mg today. Rate improved. 12 hr tele AVG HR 83, A-Fib. Anticoagulated on Eliquis. Qualifiers: Atrial fibrillation type: unspecified Qualified Code(s): I48.91 - Unspecified atrial fibrillation (5) Elevated troponin Current Visit: Yes Status: Acute Troponin 0.13, 0.12, 0.12 in setting of CHF exacerbation, A-Fib RVR and possible PNA. Flat and adynamic. Likely demand ischemia, nondiagnostic for ACS. No ischemic ECG changes. Recent STEMI as above s/p multivessel PCI. Limited TTE EF unchanged, 25-30%. Discussion w patient/family: The assessment and plan as outlined above was discussed with the patient and/or family members who expressed understanding and agreement. All questions were answered. Thank you for involving us in the care of your patient. Please call with any questions. I will discuss all the above with Dr. Dubon and make changes as necessary. Subjective Principal diagnosis: CHF Interval history: Pt reports dyspnea is much improved since bilateral thoracentesis yesterday--900cc removed from right side and 625cc removed from left. CXR after showed interval improvement. Objective Vital Signs, Last 4 Hours Temp Pulse Resp BP Pulse Ox 09/16/18 11:02 97.2 F L 93 16 93/59 95 Vital Signs Temp Pulse Resp BP Pulse Ox 09/16/18 11:02 97.2 F L 93 16 93/59 95 09/16/18 07:05 97.4 F L 83 17 107/66 95 09/16/18 03:14 98 F 82 16 97/63 95 09/15/18 23:19 97.5 F L 92 16 98/67 94 09/15/18 19:38 97.6 F 92 16 92/61 95 09/15/18 16:40 97.3 F L 100 16 109/69 95 09/15/18 11:20 97.1 F L 63 100/67 97 Intake and Output 09/15/18 09/16/18 09/16/18 23:59 07:59 15:59 Intake Total 100 / 100 100 / 100 340 / 340 Output Total 600 / 600 1325 / 1325 Balance -500 / -500 -1225 / -1225 340 / 340 Intake: IV Fluids 100 / 100 100 / 100 100 / 100 Zosyn 3.375 GM In 0.9 % Sodium 100 / 100 100 / 100 100 / 100 Chloride (Mini-Bag +) 100 ML @ 25 mls/hr IVPB Q8H [facility] Rx#: [id number] Oral 240 / 240 Output: Urine 600 / 600 1325 / 1325 Other: Meal Breakfast Percent of Meal Consumed 50% Stool Size Small Small Stool Consistency liquid loose Stool Color Brown Green # Bowel Movements 1 1 Weight 73.2 kg Patient Weight 09/16/18 23:59 Weight 73.2 kg General: Conversant, No Apparent Distress HEENT: Atraumatic, Normocephaly, Mucus Membranes Moist Neck: Normal carotid pulses Cardiac: Other (irregularly irregular) Lungs: Normal Breath Sounds, No Wheeze, Rales, Rhonchi Neuro: Alert and responsive, No focal deficits noted Abdomen: Soft, Non-Tender Skin: No rashes noted on visualized skin Musculoskeletal: No Chest Wall Tenderness Extremities: No Clubbing, No Cyanosis, No Edema, Normal Pulses Results 09/16/18 04:46 09/16/18 04:46 Lab Results 09/16/18 09/16/18 04:46 04:46 WBC 8.4 Hgb 12.9 Hct 38.6 Plt Count 266 Sodium 139 Potassium 3.7 Chloride 105 Carbon Dioxide 23 BUN 16 Creatinine 1.20 Glucose 93 Calcium 9.1 Magnesium 2.2 Short CBC 09/16/18 Range/Units 04:46 WBC 8.4 (4.3-11.1) K/mcL Hgb 12.9 (12.9-16.9) g/dL Hct 38.6 (37.5-50.1) % Plt Count 266 (140-400) K/mcL Neutrophils # 5.5 (1.6-8.9) K/mcL BMP 09/16/18 Range/Units 04:46 Sodium 139 (136-145) mEq/L Potassium 3.7 (3.5-5.1) mEq/L Chloride 105 (98-107) mEq/L Carbon Dioxide 23 (23-29) mEq/L BUN 16 (8-23) mg/dL Creatinine 1.20 (0.70-1.30) mg/dL Glucose 93 (70-105) mg/dL Calcium 9.1 (8.6-10.3) mg/dL Impressions Echocardiogram Limited Views 09/15/18 11:25 Impressions: LVEF 25-30%. Moderately dilated left ventricle. Severe global and segmental left ventricular systolic dysfunction. Left Ventricular Wall Motion: Rest Echo Findings The apical inferior, mid inferior, basal inferior, apical anterior, mid anterior, basal anterior, mid inferior septal, basal inferior septal, apical lateral, mid anterior lateral, basal anterior lateral, mid anterior septal, mid inferior lateral, basal anterior septal and basal inferior lateral [place] were hypokinetic. The apical septal wall was akinetic. The apex wall was not visualized. Findings: Study Quality * Technically adequate exam. ECG Findings * Atrial fibrillation. Left Ventricle * LVEF 25-30%. * Moderately dilated left ventricle. * Severe global and segmental left ventricular systolic dysfunction. * Definity echo contrast was not used. * Atypical septal motion consistent with bundle branch block. Left Atrium * Moderately dilated left atrium. Right Atrium * Moderately dilated right atrium. Thoracentesis 09/15/18 12:03 IMPRESSION: Successful ultrasound guided bilateral thoracentesis. D/ / Jakub Morelos / Jakub Morelos Interpreting Provider: Jakub Morelos Thoracentesis 09/15/18 12:03 IMPRESSION: Successful ultrasound guided bilateral thoracentesis. D/ / Jakub Morelos / Jakub Morelos Interpreting Provider: Jakub Morelos Chest X-Ray 09/15/18 16:12 IMPRESSION: Interval decrease in size of bilateral pleural effusion. No pneumothorax. Slightly increased linear opacity left upper lung, likely atelectasis. D/ / Stefany Brooke MD / Stefany Brooke MD Interpreting Provider: Stefany Brooke MD Active Medications Apixaban (Eliquis) 5 mg PO BID [facility] Stop: 03/17/19 11:31 Last Admin: 09/16/18 09:12 Dose: 5 mg Aspirin (Aspirin) 81 mg PO DAILY [facility] Stop: 03/17/19 09:01 Last Admin: 09/16/18 09:12 Dose: 81 mg Atorvastatin Calcium (Lipitor) 80 mg PO HS [facility] Stop: 03/17/19 21:01 Last Admin: 09/15/18 21:18 Dose: 80 mg Clopidogrel Bisulfate (Plavix) 75 mg PO DAILY [facility] Stop: 03/17/19 09:01 Last Admin: 09/16/18 09:12 Dose: 75 mg Digoxin (Lanoxin) 0.125 mg PO DAILY [facility] Stop: 03/18/19 09:01 Last Admin: 09/16/18 09:12 Dose: 0.125 mg Furosemide (Lasix) 40 mg IVP BID [facility] Stop: 03/17/19 09:01 Last Admin: 09/16/18 09:12 Dose: 40 mg Piperacillin Sod/Tazobactam (Sod 3.375 gm/ Sodium Chloride) 100 mls @ 25 mls/hr IVPB Q8H [facility] Stop: 03/17/19 13:01 Last Infusion: 09/16/18 09:35 Dose: Infused Lactobacillus Acidophilus/Rhamnosus (Culturelle) 1 each PO BID [facility] Stop: 03/18/19 09:01 Last Admin: 09/16/18 09:12 Dose: 1 each Metoprolol Succinate (Toprol Xl) 12.5 mg PO DAILY [facility] Stop: 03/17/19 09:01 Last Admin: 09/16/18 09:12 Dose: 12.5 mg Naloxone HCl (Narcan) 0.4 mg IVP Q2MIN PRN PRN Reason: SEE COMMENTS Stop: 03/16/19 23:20 Naloxone HCl (Narcan) 0.4 mg IVP Q2MIN PRN PRN Reason: Opioid Reversal Stop: 03/16/19 23:20 Nitroglycerin (Nitroglycerin) 0.4 mg SL Q5MIN PRN PRN Reason: Chest Pain Stop: 03/16/19 23:22 Omeprazole (Prilosec) 20 mg PO BIDAC [facility]; Protocol Stop: 03/17/19 07:31 Last Admin: 09/16/18 09:11 Dose: 20 mg Potassium Chloride (Potassium Chloride) 40 meq PO DAILY [facility] Stop: 03/17/19 09:01 Last Admin: 09/16/18 09:12 Dose: 40 meq - Imaging and Cardiology Echo: report reviewed - EKG Interpretation EKG results cardiology: other (12 hr tele AVG HR 83, A-Fib) Consult Discharge Plan - Plan Referrals: Shad Macdonald MD [Primary Care Provider] - 09/24/18 1:00 pm ()
[2018-09-17 03:20] LABS: Basophils # 0.1 K/mcL (0.0-0.2); Basophils % 0.6 %; Eosinophils # 0.1 K/mcL (0.0-0.6); Eosinophils % 1.1 %; Hematocrit 39.2 % (37.5-50.1); Hemoglobin 13.3 g/dL (12.9-16.9); Immature Granulocytes % 0.4 % (0-4); Lymphocytes # 2.5 K/mcL (0.6-4.6); Lymphocytes % 30.2 %; Mean Corpuscular HGB Conc 33.9 g/dL (31.6-35.5); Mean Corpuscular Hemoglobin 30.1 pg (28.0-33.3); Mean Corpuscular Volume 88.7 fL (83.0-100.0); Mean Platelet Volume 9.8 fL (9.4-12.4); Monocytes # 0.7 K/mcL (0.0-1.3); Monocytes % 8.8 %; Neutrophils # 4.8 K/mcL (1.6-8.9); Platelet Count 264 K/mcL (140-400); Red Blood Count 4.42 M/mcL (4.19-5.50); Red Cell Distribution Width 13.7 % (11.5-14.5); Segmented Neutrophils % 58.9 %
[2018-09-17 03:39] LABS: BUN/Creatinine Ratio 13 (6-26); Blood Urea Nitrogen 14 mg/dL (8-23); Calcium 9.1 mg/dL (8.6-10.3); Carbon Dioxide 23 mEq/L (23-29); Chloride 107 mEq/L (98-107); Glucose 99 mg/dL (70-105); Magnesium 2.2 mg/dL (1.6-2.6); Osmolality,Calculated 287 (280-300); Phosphorous 3.7 mg/dL (2.7-4.5); Potassium 3.5 mEq/L (3.5-5.1); Sodium 138 mEq/L (136-145); eGFR For Non-African Americans > 60 (> 60)
--- NOTE | 2018-09-17 08:17 | Cardiology Progress Note ---
Date of Encounter: 09/17/18 Time of Encounter: 08:15 Assessment and Plan (1) Acute systolic CHF (congestive heart failure), NYHA class 3 Current Visit: Yes Status: Acute Per Cardiology: Known EF 25-30%. CTA negative for PE. Continue strict I/Os, low Na/fluid restriction, and daily weights. S/P bilateral thoracentesis--900cc removed from right side, 625cc removed from left. CXR pending today. On Lasix 40mg PO BID (home dose). On BB. No ACEI/ARB d/t hypotension. Discussed with Dr. Dubon, will add low dose aldactone (SBP 90's-100's). (2) Ischemic cardiomyopathy Current Visit: No Status: Acute Per Cardiology: EF 25-30% on 08/31, s/p STEMI and revascularization. Was d/c'd home with [facility]-- re-apply at [facility]. Repeat TTE EF remains unchanged. Outpatient eval for ICD. Discussed with Dr. Dubon. (3) Elevated troponin Current Visit: Yes Status: Acute Per Cardiology: CP free. Troponin 0.13, 0.12, 0.12 in setting of CHF exacerbation, A-Fib RVR and possible PNA. Flat and adynamic. Likely demand ischemia, nondiagnostic for ACS. No cardiac rehab c/s warranted this stay. (4) CAD (coronary artery disease) Current Visit: Yes Status: Chronic Per Cardiology: S/P STEMI on 08/24/18. Successful PTCA/NJ to mLAD and PTCA to Diag, followed by staged PCI to right PDA 08/26/18. On asa, plavix, statin, BB. Qualifiers: Coronary Disease-Associated Artery/Lesion type: [place] artery [place] vs. transplanted heart: [place] heart Associated angina: angina presence unspecifie d Qualified Code(s): I25.10 - Atherosclerotic heart disease of [place] coronary artery without angina pectoris (5) A-fib Current Visit: Yes Status: Chronic Per Cardiology: Recent diagnosis of A-Fib. On Toprol XL 12.5mg daily. S/p IV Digoxin load and now on PO Digoxin 0.125mg today. 12 hr tele AVG HR 83, A-Fib. Anticoagulated on Eliquis. H&H stable on triple therapy. Qualifiers: Atrial fibrillation type: unspecified Qualified Code(s): I48.91 - Unspecified atrial fibrillation Discussion w patient/family: The assessment and plan as outlined above was discussed with the patient and/or family members who expressed understanding and agreement. All questions were answered. Thank you for involving us in the care of your patient. Please call with any questions. Subjective Principal diagnosis: CHF, SOB Interval history: Patient reports short of breath dramatically improved after bilateral thoracentesis. He denies any chest pain, palpitations, any bleeding or blood loss. Anxious to go home. Objective Vital Signs, Last 4 Hours Temp Pulse Resp BP Pulse Ox 09/17/18 06:31 97.9 F 77 16 104/70 93 General: Conversant, No Apparent Distress HEENT: Atraumatic, Normocephaly, Mucus Membranes Moist Neck: No JVD, Normal carotid pulses Cardiac: No Murmur, Other (Irregularly irregular) Lungs: Normal Breath Sounds, No Wheeze, Rales, Rhonchi Neuro: Alert and responsive, No focal deficits noted Abdomen: Soft, Non-Tender Skin: No rashes noted on visualized skin Musculoskeletal: No Chest Wall Tenderness Extremities: No Clubbing, No Cyanosis, No Edema, Normal Pulses Results 09/17/18 03:01 09/17/18 03:01 Lab Results Laboratory Tests 09/14/18 09/14/18 09/14/18 18:33 18:33 18:33 Hgb Hct INR 1.8 Potassium Creatinine Est GFR (Non-Af Amer) Troponin I 0.13 H* B-Natriuretic Peptide 1043 H 09/15/18 09/15/18 09/17/18 00:56 04:58 03:01 Hgb 13.3 Hct 39.2 INR Potassium Creatinine Est GFR (Non-Af Amer) Troponin I 0.12 H* 0.12 H* B-Natriuretic Peptide 09/17/18 03:01 Hgb Hct INR Potassium 3.5 Creatinine 1.07 Est GFR (Non-Af Amer) > 60 Troponin I B-Natriuretic Peptide Impressions Echocardiogram Limited Views 09/15/18 11:25 Impressions: LVEF 25-30%. Moderately dilated left ventricle. Severe global and segmental left ventricular systolic dysfunction. Left Ventricular Wall Motion: Rest Echo Findings The apical inferior, mid inferior, basal inferior, apical anterior, mid anterior, basal anterior, mid inferior septal, basal inferior septal, apical lateral, mid anterior lateral, basal anterior lateral, mid anterior septal, mid inferior lateral, basal anterior septal and basal inferior lateral [place] were hypokinetic. The apical septal wall was akinetic. The apex wall was not visualized. Findings: Study Quality * Technically adequate exam. ECG Findings * Atrial fibrillation. Left Ventricle * LVEF 25-30%. * Moderately dilated left ventricle. * Severe global and segmental left ventricular systolic dysfunction. * Definity echo contrast was not used. * Atypical septal motion consistent with bundle branch block. Left Atrium * Moderately dilated left atrium. Right Atrium * Moderately dilated right atrium. Intake & Output 09/14/18 09/15/18 09/16/18 09/17/18 23:59 23:59 23:59 23:59 Intake Total 265 / 265 900 / 900 400 / 400 Output Total 850 / 850 2425 / 2425 Balance -585 / -585 -1525 / -1525 400 / 400 Weight 77.111 kg 76.929 kg 73.2 kg 72.3 kg Active Medications Apixaban (Eliquis) 5 mg PO BID [facility] Stop: 03/17/19 11:31 Last Admin: 09/16/18 21:05 Dose: 5 mg Aspirin (Aspirin) 81 mg PO DAILY [facility] Stop: 03/17/19 09:01 Last Admin: 09/16/18 09:12 Dose: 81 mg Atorvastatin Calcium (Lipitor) 80 mg PO HS [facility] Stop: 03/17/19 21:01 Last Admin: 09/16/18 21:10 Dose: 80 mg Clopidogrel Bisulfate (Plavix) 75 mg PO DAILY [facility] Stop: 03/17/19 09:01 Last Admin: 09/16/18 09:12 Dose: 75 mg Digoxin (Lanoxin) 0.125 mg PO DAILY [facility] Stop: 03/18/19 09:01 Last Admin: 09/16/18 09:12 Dose: 0.125 mg Furosemide (Lasix) 40 mg PO BIDDIURETIC [facility] Stop: 03/19/19 17:01 Lactobacillus Acidophilus/Rhamnosus (Culturelle) 1 each PO BID [facility] Stop: 03/18/19 09:01 Last Admin: 09/16/18 21:05 Dose: 1 each Metoprolol Succinate (Toprol Xl) 12.5 mg PO DAILY [facility] Stop: 03/17/19 09:01 Last Admin: 09/16/18 09:12 Dose: 12.5 mg Naloxone HCl (Narcan) 0.4 mg IVP Q2MIN PRN PRN Reason: SEE COMMENTS Stop: 03/16/19 23:20 Naloxone HCl (Narcan) 0.4 mg IVP Q2MIN PRN PRN Reason: Opioid Reversal Stop: 03/16/19 23:20 Nitroglycerin (Nitroglycerin) 0.4 mg SL Q5MIN PRN PRN Reason: Chest Pain Stop: 03/16/19 23:22 Omeprazole (Prilosec) 20 mg PO BIDAC [facility]; Protocol Stop: 03/17/19 07:31 Last Admin: 09/16/18 16:09 Dose: 20 mg Potassium Chloride (Potassium Chloride) 40 meq PO DAILY [facility] Stop: 03/17/19 09:01 Last Admin: 09/16/18 09:12 Dose: 40 meq - Imaging and Cardiology Echo: report reviewed - EKG Interpretation EKG results cardiology: other (Telemetry shows average heart rate 83 the past 12 hours, remains A. fib, no significant events noted) Consult Discharge Plan - Plan Referrals: Shad Macdonald MD [Primary Care Provider] - 09/24/18 1:00 pm ()
[2018-09-17] MEDS: Apixaban 5 MG TABLET PO SCH (08:43)
[2018-09-17] MEDS: Metoprolol XL (24 HR) Succ 25 MG TAB.ER.24H PO SCH (08:43)
[2018-09-17] MEDS: Lactobacillus 1 EACH CAP.SPRINK PO SCH (08:43)
[2018-09-17] MEDS: *HR* Digoxin 0.125 MG TABLET PO SCH (08:43)
[2018-09-17] MEDS: Aspirin 81 MG TAB.CHEW PO SCH (08:44)
[2018-09-17] MEDS ORDERED: Spironolactone 25 MG TABLET PO SCH (09:15)
--- NOTE | 2018-09-17 10:23 | Discharge Summary ---
- NOTES TO OUTPATIENT PROVIDER Notes to Outpatient Provider: Patient would need follow-up potassium given started on spironolactone and on potassium supplementation with Lasix. Also will need close monitoring of blood pressure is started on spironolactone with blood pressure on the lower end. Blood pressure tolerates to consider starting ACEI/ARB. Put on life vest. Orders not resulted at time of discharge: Pending orders 09/15/18 16:08 Culture,Body Fluid [RM] Routine 09/15/18 16:10 Cytology [PTH] Routine 09/15/18 18:17 Culture,Blood [BC] Routine 09/18/18 04:00 Basic Metabolic Panel AM 0400 CBC [Complete Blood Count] [HEME] AM 0400 Magnesium AM 0400 Phosphorous AM 0400 09/19/18 04:00 Basic Metabolic Panel AM 0400 CBC [Complete Blood Count] [HEME] AM 0400 Magnesium AM 0400 Phosphorous AM 0400 09/20/18 04:00 Basic Metabolic Panel AM 0400 CBC [Complete Blood Count] [HEME] AM 0400 Magnesium AM 0400 Phosphorous AM 0400 09/21/18 04:00 Basic Metabolic Panel AM 0400 CBC [Complete Blood Count] [HEME] AM 0400 Magnesium AM 0400 Phosphorous AM 0400 Date of Encounter: 09/17/18 Time of Encounter: : - Discharge Diagnosis (1) CAD (coronary artery disease) Priority: Secondary Status: Chronic Qualifiers: Coronary Disease-Associated Artery/Lesion type: [place] artery [place] vs. transplanted heart: [place] heart Associated angina: angina presence unspecified Qualified Code(s): I25.10 - Atherosclerotic heart disease of [place] coronary artery without angina pectoris (2) A-fib Priority: Secondary Status: Chronic Qualifiers: Atrial fibrillation type: unspecified Qualified Code(s): I48.91 - Unspecified atrial fibrillation (3) DVT prophylaxis Priority: Secondary Status: Acute (4) Acute systolic CHF (congestive heart failure), NYHA class 3 Priority: Primary Status: Acute (5) Elevated troponin Priority: Primary Status: Acute (6) Hypokalemia Priority: Secondary Status: Acute Hospital course: Mr. Rod is a 63 year old male with past medical history of recent STEMI, atrial fibrillation, hyperlipidemia came in with shortness of breath. Patient was recently started on Levaquin for pneumonia. Patient was related to the ER with CTA which was negative for PE but did show pleural effusion with possible parapneumonic in nature. Patient was started on Zosyn. Patient was also noted to have mildly elevated troponin . Patient also initially had RVR with A. fib. Patient was started on digoxin along with home metoprolol and Lasix. Patient had thoracentesis done which showed likely transudative effusion. Patient's antibiotics were stopped. Elevated troponin with start by cardiology likely from demand ischemia. Patient was continued on Lasix. Patient not on LAMAR inhibitor or ARB because of low blood pressure. Patient was started on spironolactone on discharge. Discussed with patient to hold if systolic continuously less than 90. Patient to follow-up with PCP and cardiology as outpatient. Prescription was given for digoxin and spironolactone. Patient to continue rest of his home medications and fluid restriction. Patient was also given LifeVest on discharge. Few doses of Xanax were given for anxiety as needed until seen by PCP. Discharge discussed with: patient, family, nurse (36) - Time Spent with Patient Total time spent providing and/or coordinating discharge services: Greater than 30 minutes - Discharge Medications Prescriptions: New Digoxin [Lanoxin] 0.125 mg PO DAILY 30 Days #30 tablet Spironolactone [Aldactone] 12.5 mg PO DAILY 30 Days #30 tablet ALPRAZolam [Xanax 0.25 MG Tablet] 0.25 mg PO DAILY PRN 5 Days #3 tablet PRN Reason: Anxiety Continue Nitroglycerin 0.4 mg SL Q5MIN PRN #30 tab.subl PRN Reason: Chest Pain Apixaban [Eliquis] 5 mg PO BID #60 tablet Aspirin 81 mg PO DAILY #30 tab.chew Clopidogrel [Plavix] 75 mg PO DAILY #30 tablet Furosemide [Lasix] 40 mg PO BIDDIURETIC #60 tablet Metoprolol XL (24 HR) Succ [Toprol Xl] 12.5 mg PO DAILY #15 tab.er.24h Omeprazole [PriLOSEC] 20 mg PO BIDAC #60 capsule.dr Potassium Chloride 40 meq PO DAILY #30 tab.er.prt Atorvastatin Calcium [Lipitor] 80 mg PO HS hydrOXYzine HCl [Hydroxyzine HCl] 25 mg PO BID PRN PRN Reason: Anxiety Discontinued levoFLOXacin [Levofloxacin] 750 mg PO DAILY Home Medications: Apixaban [Eliquis] 5 mg PO BID #60 tablet 09/09/18 [Rx] Aspirin 81 mg PO DAILY #30 tab.chew 09/09/18 [Rx] Clopidogrel [Plavix] 75 mg PO DAILY #30 tablet 09/09/18 [Rx] Furosemide [Lasix] 40 mg PO BIDDIURETIC #60 tablet 09/09/18 [Rx] Metoprolol XL (24 HR) Succ [Toprol Xl] 12.5 mg PO DAILY #15 tab.er.24h 09/09/18 [Rx] Nitroglycerin 0.4 mg SL Q5MIN PRN #30 tab.subl 09/09/18 [Rx] Omeprazole [PriLOSEC] 20 mg PO BIDAC #60 capsule.dr 09/09/18 [Rx] Potassium Chloride 40 meq PO DAILY #30 tab.er.prt 09/09/18 [Rx] Atorvastatin Calcium [Lipitor] 80 mg PO HS 09/14/18 [History] hydrOXYzine HCl [Hydroxyzine HCl] 25 mg PO BID PRN 09/14/18 [History] ALPRAZolam [Xanax 0.25 MG Tablet] 0.25 mg PO DAILY PRN 5 Days #3 tablet 09/17/18 [Rx] Digoxin [Lanoxin] 0.125 mg PO DAILY 30 Days #30 tablet 09/17/18 [Rx] Spironolactone [Aldactone] 12.5 mg PO DAILY 30 Days #30 tablet 09/17/18 [Rx] Allergies/Adverse Reactions: Allergy/AdvReac Type Severity Reaction Status Date / Time vancomycin Allergy See Verified 09/14/18 21:46 Comments Date of admission: 09/15/18 09:47 Primary care physician: Shad Macdonald MD Consults: 09/15/18 01:40 Consult to Cardiology [CONS] Routine Comment: Consulting Provider: [facility] [place] Reason for Consult: NSTEMI Call Completed: No 09/15/18 07:45 Consult to Nurse Navigator [CONS] Routine Comment: CHF, PNEUMONIA 09/15/18 08:16 Consult to Pulmonology [CONS] Routine Consulting Provider: [facility] Reason for Consult: Large bilateral pleural effusions in the setting of significant heart failure with reduced ejection fraction. Call Completed: No Discharging clinician: Reinaldo Brooke - Constitutional Vitals: Temp Pulse Resp BP Pulse Ox 97.5 F L 77 16 95/63 97 09/17/18 10:09 09/17/18 10:09 09/17/18 10:09 09/17/18 10:09/17/18 10:09 General appearance: Present: A&O X 3, no acute distress, answers questions appropriately Exam: General: In no acute distress. Conversant. Respiratory exam: Crackle at Rt lung base. no accessory muscle use, rhonchi, wheezes Cardiovascular exam: RRR, +S1, +S2. no murmur, gallop, rubs. GI/Abdominal exam: Non-tender, Non-distended, normal bowel sounds, soft, no peritoneal signs. Extremities exam: full ROM, no pedal edema, warm, pulses palpable in b/l lower extremities. no calf tenderness Neurological exam: CN II-XII intact, AO X3, no focal deficits. no pronater drift, facial droop, speech deficit Skin exam: No skin rash, ulcer, purpura or ecchymosis. - Patient Status Disposition: Home, Self-Care Condition: Good - Discharge Instructions Follow Up With: Shad Macdonald MD [Primary Care Provider] - 09/24/18 1:00 pm () Valeri Faustin [Partnered Physician] - (Appointment has been requested.)
[2018-09-17 12:46] VITALS: BP 114/71
[2018-09-17] MEDS ORDERED: Furosemide 40 MG TABLET PO SCH (17:00)
== END 2018-09-17 15:38 | disposition home or self-care (01) | DRG 280 ==
LOC: 3BNU 18:11 → EMEROOARM 18:11 → 3BNU 23:19 → SUATTDRO 09-15 09:47
PROVIDERS: ADMIT Internal Medicine; ATTEND Internal Medicine

== ENCOUNTER 2018-12-17 12:18 | Observation (INO) ==
[2018-12-17] MEDS ORDERED: Isovue-370 500 ML BOTTLE IVP ONE (12:42)
--- NOTE | 2018-12-17 12:46 | Emergency Department Note ---
Disposition Clinical Impression: SOB (shortness of breath), DOBSON (dyspnea on exertion) A-fib Qualifiers: Atrial fibrillation type: chronic Qualified Code(s): I48.2 - Chronic atrial fibrillation Congestive heart failure Qualifiers: Heart failure type: systolic Heart failure chronicity: acute on chronic Qualified Code(s): I50.23 - Acute on chronic systolic (congestive) heart failure Disposition: Admitted As Inpatient Condition: Undetermined Referrals: Shad Macdonald MD [Primary Care Provider] - Forms: ED Satisfaction Letter Time of Disposition: 15:24 SOB HPI - General Chief Complaint: ED Shortness of Breath/Dyspnea Stated Complaint: "Fluid Overload" From PCP Time Seen by Provider: 12/17/18 12:28 Source: patient, family Mode of arrival: ambulatory Limitations: no limitations Nursing Notes Reviewed: Yes Vital Signs Reviewed: Yes - History of Present Illness 63-year-old male with history of NH, history of atrial fibrillation and poor heart function secondary to the NH with an EF of 25-35% arrives to the emergency department with complaint of 5 months of difficulty breathing that has been intermittent in nature. The patient has been taking L Oquist for the A. fib, aspirin and Plavix for his NH. He has been taking all his medications as prescribed. He had a defibrillator placement placed 3 days ago. The patient states that he is still complaining of shortness of breath. Denies any leg swelling, abdominal swelling, upper extremity swelling, hemoptysis, history of DVT or PE. Patient denies any associated chest pain, fevers, chills, abdominal pain, dysuria. He is resting comfortably in the room but every few seconds she is to take a deep breath. Patient has not noted to be hypoxic but is noted to be intermittent late tachycardic and in obvious atrial fibrillation. No other complaints noted at this time. - Related Data Home Medications Medication Instructions Recorded Confirmed Atorvastatin Calcium [Lipitor] 80 mg PO HS 09/14/18 12/11/18 Albuterol Sulfate [Ventolin Hfa] 2 puff IH Q4H PRN 12/11/18 12/11/18 Cetirizine HCl [Zyrtec] 10 mg PO DAILY 12/11/18 12/11/18 Fluticasone/Umeclidin/Vilanter 1 puff IH DAILY 12/11/18 12/11/18 [Trelegy Ellipta 100-62.5-25] Omeprazole [PriLOSEC] 20 mg PO QAM 12/11/18 12/11/18 Spironolactone [Aldactone] 12.5 mg PO DAILY 12/11/18 12/11/18 Sulfamethoxazole/Trimeth DS 1 tab PO BID PRN 12/11/18 12/11/18 [Bactrim Ds] Previous Rx's Medication Instructions Recorded Aspirin 81 mg PO DAILY #30 tab.chew 09/09/18 Clopidogrel [Plavix] 75 mg PO DAILY #30 tablet 09/09/18 Furosemide [Lasix] 40 mg PO BIDDIURETIC #60 tablet 09/09/18 Metoprolol XL (24 HR) Succ [Toprol 12.5 mg PO DAILY #15 tab.er.24h 09/09/18 Xl] Nitroglycerin 0.4 mg SL Q5MIN PRN #30 tab.subl 09/09/18 Potassium Chloride 40 meq PO DAILY #30 tab.er.prt 09/09/18 Apixaban [Eliquis] 5 mg PO BID #0 12/12/18 Allergies Allergy/AdvReac Type Severity Reaction Status Date / Time vancomycin Allergy See Verified 12/11/18 13:02 Comments All systems ED: reviewed and negative except as stated. Constitutional: Denies: fever, chills, weakness ENT ED: Denies: dysphagia Cardiovascular: Reports: dyspnea on exertion. Denies: chest pain, palpitations, edema, syncope Respiratory: Reports: dyspnea. Denies: cough, sputum production Gastrointestinal: Denies: abdominal pain Genitourinary: Denies: urgency, dysuria Musculoskeletal: Denies: back pain Integumentary: Denies: rash Neurological: Denies: headache Past Medical History - Past Medical History Attestation: Yes The following information was validated with the patient. Source: patient, old records reviewed Medical history: Reports: arthritis, atrial fibrillation, CHF, coronary artery disease, GERD, hyperlipidemia, myocardial infarction Surgical history: Reports: angioplasty/stent, herniorrhaphy Psychiatric history: Reports: no psych history - Social History Smoking Status: Former smoker Smokeless Tobacco Status: No Alcohol use: Reports: none Drug use: Reports: none Physical Exam - General Limitations: no limitations General appearance: alert, in no apparent distress - Head Head exam: atraumatic, normocephalic, normal inspection - Eye Eye exam: Present: normal appearance, PERRL, EOMI - ENT ENT exam: normal exam, normal oropharynx, mucous membranes moist - Neck Neck exam: Present: normal inspection, full ROM, trachea midline - Chest Chest inspection: Present: normal inspection, symmetric chest wall rise - Respiratory Respiratory exam: Present: normal lung sounds bilaterally - Cardiovascular Cardiovascular exam: Present: tachycardia, irregular rhythm, normal heart sounds - Abdominal Exam Abdominal exam: Present: soft, Non-Tender. Absent: tenderness, distention, guarding, rebound, rigidity - Extremities Exam Extremities exam: Present: normal inspection, full ROM, normal capillary refill. Absent: tenderness, pedal edema - Neurological Exam Neurological exam: Present: alert, oriented X3 - Skin Skin exam: Present: warm, dry, other (Ecchymosis and a surgical scar noted on anterior chest the left side. Intact, without erythema) Course Vital Signs Temperature 96.3 F L 12/17/18 12:22 Pulse Rate 104 12/17/18 12:22 Respiratory Rate 16 12/17/18 12:22 Blood Pressure 114/75 12/17/18 12:22 O2 Sat by Pulse Oximetry 99 12/17/18 12:22 Temperature 96.3 F L 12/17/18 12:22 Pulse Rate 84 12/17/18 15:08 Respiratory Rate 20 12/17/18 15:08 Blood Pressure 114/80 12/17/18 15:08 O2 Sat by Pulse Oximetry 96 12/17/18 15:08 Oxygen Delivery Oxygen Delivery Nasal Cannula Shortness of Breath/Dyspnea - MDM Narrative Medical decision making narrative: Patient's workup in the emergency department demonstrates findings consistent with mild congestive heart failure. There is a small left-sided pleural effusion and elevated BNP. Patient is CTA of his chest secondary to the patient's tachycardia, A. fib and noted recent placement of a defibrillator. Given the patient's symptoms will discuss about admission to the hospital at this time. No further questions or concerns noted. Accepted by Dr. Washington. - Lab Data Lab results reviewed: Yes I reviewed the patient's lab results. Result diagrams: 12/17/18 12:50 12/17/18 12:50 Lab Results 12/17/18 12/17/18 12/17/18 Range/Units 12:50 12:50 12:50 WBC 6.7 (4.3-11.1) K/mcL RBC 4.40 (4.19-5.50) M/mcL Hgb 13.3 (12.9-16.9) g/dL Hct 41.0 (37.5-50.1) % MCV 93.2 (83.0-100.0) fL MCH 30.2 (28.0-33.3) pg MCHC 32.4 (31.6-35.5) g/dL RDW 15.4 H (11.5-14.5) % Plt Count 181 (140-400) K/mcL MPV 10.2 (9.4-12.4) fL Immature Gran % 0.2 (0-4) % Seg Neutrophils % 54.3 % Lymphocytes % 33.1 % Monocytes % 5.9 % Eosinophils % 6.0 % Basophils % 0.5 % Neutrophils # 3.6 (1.6-8.9) K/mcL Lymphocytes # 2.2 (0.6-4.6) K/mcL Monocytes # 0.4 (0.0-1.3) K/mcL Eosinophils # 0.4 (0.0-0.6) K/mcL Basophils # 0.0 (0.0-0.2) K/mcL Sodium 138 (136-145) mEq/L Potassium 4.2 (3.5-5.1) mEq/L Chloride 103 (98-107) mEq/L Carbon Dioxide 22 L (23-29) mEq/L BUN 14 (8-23) mg/dL Creatinine 0.87 (0.70-1.30) mg/dL Est GFR ( Amer) > 60 (> 60) Est GFR (Non-Af Amer) > 60 (> 60) BUN/Creatinine Ratio 16 (6-26) Glucose 125 H (70-105) mg/dL Calculated Osmolality 288 (280-300) Calcium 10.1 (8.6-10.3) mg/dL Troponin I < 0.03 (< 0.04) ng/mL B-Natriuretic Peptide 960 H (Less than 100) pg/mL - Radiology Data Radiology results reviewed: Yes I reviewed the patient's radiology results. Chest CTA 12/17/18 12:42 IMPRESSION: No central or segmental pulmonary embolus. Small right pleural effusion. D/ / 12/17/2018 14:30:24 Darci Putnam MD / Mahogany Medina Interpreting Provider: Darci Putnam MD Chest X-Ray 12/17/18 12:42 IMPRESSION: 1. Pulmonary vascular congestion and borderline cardiomegaly. 2. At least trace right pleural effusion. D/ / Navneet Roy MD / Navneet Roy MD Interpreting Provider: Navneet Roy MD - EKG Data EKG attestation: Yes I reviewed and interpreted this EKG. EKG results narrative: Heart rate 104 beats for minute. Atrial fibrillation. No ST elevation or ST d epression noted. EKG overall similar and morphology to EKG from 12/11/2018.
[2018-12-17 13:19] LABS: Basophils % 0.5 %; Eosinophils # 0.4 K/mcL (0.0-0.6); Hemoglobin 13.3 g/dL (12.9-16.9); Immature Granulocytes % 0.2 % (0-4); Lymphocytes # 2.2 K/mcL (0.6-4.6); Lymphocytes % 33.1 %; Mean Corpuscular HGB Conc 32.4 g/dL (31.6-35.5); Mean Corpuscular Hemoglobin 30.2 pg (28.0-33.3); Mean Corpuscular Volume 93.2 fL (83.0-100.0); Mean Platelet Volume 10.2 fL (9.4-12.4); Monocytes # 0.4 K/mcL (0.0-1.3); Monocytes % 5.9 %; Neutrophils # 3.6 K/mcL (1.6-8.9); Platelet Count 181 K/mcL (140-400); Red Cell Distribution Width 15.4 % (11.5-14.5); Segmented Neutrophils % 54.3 %
[2018-12-17 13:35] LABS: BUN/Creatinine Ratio 16 (6-26); Blood Urea Nitrogen 14 mg/dL (8-23); Calcium 10.1 mg/dL (8.6-10.3); Carbon Dioxide 22 mEq/L (23-29); Chloride 103 mEq/L (98-107); Glucose 125 mg/dL (70-105); Osmolality,Calculated 288 (280-300); Potassium 4.2 mEq/L (3.5-5.1); Sodium 138 mEq/L (136-145); Troponin I < 0.03 ng/mL (< 0.04); eGFR For Non-African Americans > 60 (> 60)
--- NOTE | 2018-12-17 14:59 | Emergency Department Note ---
Disposition Clinical Impression: SOB (shortness of breath), DOBSON (dyspnea on exertion), A-fib, Congestive heart failure Disposition: Admitted As Inpatient Referrals: Shad Macdonald MD [Primary Care Provider] - Forms: ED Satisfaction Letter Time of Disposition: 14:59 General Adult HPI - General Chief complaint: ED Shortness of Breath/Dyspnea Stated complaint: "Fluid Overload" From PCP Time Seen by Provider: 12/17/18 12:28 Source: patient, family Mode of arrival: ambulatory Limitations: no limitations - History of Present Illness Pain Scale: 0 - Related Data Home Medications Medication Instructions Recorded Confirmed Atorvastatin Calcium [Lipitor] 80 mg PO HS 09/14/18 12/11/18 Albuterol Sulfate [Ventolin Hfa] 2 puff IH Q4H PRN 12/11/18 12/11/18 Cetirizine HCl [Zyrtec] 10 mg PO DAILY 12/11/18 12/11/18 Fluticasone/Umeclidin/Vilanter 1 puff IH DAILY 12/11/18 12/11/18 [Trelegy Ellipta 100-62.5-25] Omeprazole [PriLOSEC] 20 mg PO QAM 12/11/18 12/11/18 Spironolactone [Aldactone] 12.5 mg PO DAILY 12/11/18 12/11/18 Sulfamethoxazole/Trimeth DS 1 tab PO BID PRN 12/11/18 12/11/18 [Bactrim Ds] Previous Rx's Medication Instructions Recorded Aspirin 81 mg PO DAILY #30 tab.chew 09/09/18 Clopidogrel [Plavix] 75 mg PO DAILY #30 tablet 09/09/18 Furosemide [Lasix] 40 mg PO BIDDIURETIC #60 tablet 09/09/18 Metoprolol XL (24 HR) Succ [Toprol 12.5 mg PO DAILY #15 tab.er.24h 09/09/18 Xl] Nitroglycerin 0.4 mg SL Q5MIN PRN #30 tab.subl 09/09/18 Potassium Chloride 40 meq PO DAILY #30 tab.er.prt 09/09/18 Apixaban [Eliquis] 5 mg PO BID #0 12/12/18 Allergies Allergy/AdvReac Type Severity Reaction Status Date / Time vancomycin Allergy See Verified 12/11/18 13:02 Comments Constitutional: Denies: fever, chills, weakness ENT ED: Denies: dysphagia Cardiovascular: Reports: dyspnea on exertion. Denies: chest pain, palpitations, edema, syncope Respiratory: Reports: dyspnea. Denies: cough, sputum production Gastrointestinal: Denies: abdominal pain Genitourinary: Denies: urgency, dysuria Musculoskeletal: Denies: back pain Integumentary: Denies: rash Neurological: Denies: headache Past Medical History - Past Medical History Medical history: Reports: arthritis, atrial fibrillation, CHF, coronary artery disease, GERD, hyperlipidemia, myocardial infarction Surgical history: Reports: angioplasty/stent, herniorrhaphy Psychiatric history: Reports: no psych history - Social History Smoking Status: Former smoker Smokeless Tobacco Status: No Alcohol use: Reports: none Drug use: Reports: none Physical Exam - General Limitations: no limitations General appearance: alert, in no apparent distress Course Vital Signs Temperature 96.3 F L 12/17/18 12:22 Pulse Rate 104 12/17/18 12:22 Respiratory Rate 16 12/17/18 12:22 Blood Pressure 114/75 12/17/18 12:22 O2 Sat by Pulse Oximetry 99 12/17/18 12:22 Temperature 96.3 F L 12/17/18 12:22 Pulse Rate 90 12/17/18 14:10 Respiratory Rate 20 12/17/18 14:10 Blood Pressure 98/81 12/17/18 14:10 O2 Sat by Pulse Oximetry 97 12/17/18 14:10 Oxygen Delivery Oxygen Delivery Nasal Cannula Medical Decision Making - Lab Data Result diagrams: 12/17/18 12:50 12/17/18 12:50 Lab Results 12/17/18 12/17/18 12/17/18 Range/Units 12:50 12:50 12:50 WBC 6.7 (4.3-11.1) K/mcL RBC 4.40 (4.19-5.50) M/mcL Hgb 13.3 (12.9-16.9) g/dL Hct 41.0 (37.5-50.1) % MCV 93.2 (83.0-100.0) fL MCH 30.2 (28.0-33.3) pg MCHC 32.4 (31.6-35.5) g/dL RDW 15.4 H (11.5-14.5) % Plt Count 181 (140-400) K/mcL MPV 10.2 (9.4-12.4) fL Immature Gran % 0.2 (0-4) % Seg Neutrophils % 54.3 % Lymphocytes % 33.1 % Monocytes % 5.9 % Eosinophils % 6.0 % Basophils % 0.5 % Neutrophils # 3.6 (1.6-8.9) K/mcL Lymphocytes # 2.2 (0.6-4.6) K/mcL Monocytes # 0.4 (0.0-1.3) K/mcL Eosinophils # 0.4 (0.0-0.6) K/mcL Basophils # 0.0 (0.0-0.2) K/mcL Sodium 138 (136-145) mEq/L Potassium 4.2 (3.5-5.1) mEq/L Chloride 103 (98-107) mEq/L Carbon Dioxide 22 L (23-29) mEq/L BUN 14 (8-23) mg/dL Creatinine 0.87 (0.70-1.30) mg/dL Est GFR ( Amer) > 60 (> 60) Est GFR (Non-Af Amer) > 60 (> 60) BUN/Creatinine Ratio 16 (6-26) Glucose 125 H (70-105) mg/dL Calculated Osmolality 288 (280-300) Calcium 10.1 (8.6-10.3) mg/dL Troponin I < 0.03 (< 0.04) ng/mL B-Natriuretic Peptide 960 H (Less than 100) pg/mL Attestation Statement - Attestation Attestation: I examined this patient and my medical decision-making was reviewed with the Resident Physician. I agree with the documented findings, disposition and treatment plan as described except to the extent set forth below. He 3-year-old male presents the emergency room for increasing difficulty in breathing. Onset parsley 5 months ago. Seems be getting worse. Recently had a defibrillator placed for a low ejection fraction. Patient states he is not getting any better after the defibrillator was placed. His workup today showed evidence of a right-sided pleural effusion. He does have an elevated BNP. He has underlying atrial fibrillation. EKG was reviewed with the resident and agree with the documentation. Patient will be admitted to hospitalist service and consult to cardiology. remaining labs ok. trop neg.
[2018-12-17] MEDS ORDERED: Ondansetron 4 MG/2 ML VIAL IVP PRN (17:06)
[2018-12-17] MEDS ORDERED: Naloxone 0.4 MG/ML INJ IVP PRN (17:06)
[2018-12-17] MEDS ORDERED: *HR* OxyCODONE Immed Rel 5 MG TABLET PO PRN (17:06)
[2018-12-17] MEDS ORDERED: *HR* HYDROcodone/Acet 5/325 mg TABLET PO PRN (17:06)
[2018-12-17] MEDS ORDERED: Acetaminophen 325 MG TABLET PO PRN (17:06)
[2018-12-17] MEDS ORDERED: Nitroglycerin 0.4 MG TAB.SUBL SL PRN (17:12)
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
[2018-12-17] MEDS: Furosemide 40 MG/4 ML VIAL IVP SCH (20:30)
[2018-12-17] MEDS ORDERED: Furosemide 40 MG/4 ML VIAL IVP SCH ×2 (21:00)
[2018-12-18 00:43] LABS: Basophils # 0.1 K/mcL (0.0-0.2); Basophils % 0.8 %; Eosinophils # 0.4 K/mcL (0.0-0.6); Eosinophils % 6.9 %; Immature Granulocytes % 0.2 % (0-4); Lymphocytes # 2.5 K/mcL (0.6-4.6); Lymphocytes % 39.5 %; Mean Corpuscular HGB Conc 33.4 g/dL (31.6-35.5); Mean Corpuscular Hemoglobin 30.4 pg (28.0-33.3); Mean Corpuscular Volume 90.9 fL (83.0-100.0); Mean Platelet Volume 10.2 fL (9.4-12.4); Monocytes # 0.7 K/mcL (0.0-1.3); Monocytes % 10.4 %; Neutrophils # 2.7 K/mcL (1.6-8.9); Platelet Count 171 K/mcL (140-400); Red Blood Count 3.85 M/mcL (4.19-5.50); Red Cell Distribution Width 15.3 % (11.5-14.5); Segmented Neutrophils % 42.2 %
[2018-12-18 00:47] LABS: Hemoglobin 11.7 g/dL (12.9-16.9)
[2018-12-18 01:02] LABS: BUN/Creatinine Ratio 15 (6-26); Blood Urea Nitrogen 12 mg/dL (8-23); Calcium 9.4 mg/dL (8.6-10.3); Carbon Dioxide 21 mEq/L (23-29); Chloride 105 mEq/L (98-107); Glucose 95 mg/dL (70-105); Magnesium 2.3 mg/dL (1.6-2.6); Osmolality,Calculated 286 (280-300); Potassium 3.9 mEq/L (3.5-5.1); Sodium 138 mEq/L (136-145); eGFR For Non-African Americans > 60 (> 60)
[2018-12-18] MEDS ORDERED: *HR* Heparin 5,000 UNIT/ML VIAL SQ SCH (06:00)
[2018-12-18] MEDS ORDERED: Spironolactone 25 MG TABLET PO SCH (09:00)
[2018-12-18] MEDS ORDERED: Perflutren Lipid Microsphere 1.3 ML in 0.9 % Sodium Chloride 8.7 ML IVP ONE ×2 (09:47→10:48)
--- NOTE | 2018-12-18 10:26 | Internal Med Progress Note ---
Hospitalist Progress Note - Encounter Date of Encounter: 12/18/18 Time of Encounter: 10:26 - Subjective Interval History: A set was seen and examined at bedside appears much better today states he has been ambulating in the room without becoming short of breath. Awaiting cardiology's recommendations. We will continue diuresing the patient I anticipate patient will be discharged tomorrow morning - Exam Vitals: Temp Pulse Resp BP Pulse Ox 97.7 F 92 16 100/68 95 12/18/18 06:58 12/18/18 06:58 12/18/18 06:58 12/18/18 06:58 12/18/18 06:58 Exam: Skin: Free of rash and discoloration. Eyes: Sclera is white. There is no discharge from eyes. ENMT: Oral/pharyngeal mucosa is normal in appearance. There is no discharge from nose or ears. Respiratory: Normal breath sounds with crackles in the left base CV: Heart is irregular with no gallop or murmur. GI: Abdomen is flat and soft with no palpable mass or visceromegaly. : There is no tenderness in patient's flanks bilaterally. Neuro exam: He has good strength in upper and lower extremities. He has normal eye movements. Psychiatric: He has normal affect. His thought process is appropriate to the situation. - Assessment and Plan (1) Acute systolic CHF (congestive heart failure), NYHA class 3 Current Visit: No Status: Acute Assessment and Plan: Known EF of 30-35%-continues to experience increasing shortness of breath as well as orthopnea this appears to be chronic strict I/O low-sodium fluid restriction daily weights on Lasix 40 mg by mouth twice a day patient states he has been compliant -on beta scott no terrie/arb due to history of hypotension We will give IV Lasix-gentle diuresis-we will resume oral Lasix in the a.m. Cardiology consulted appreciate recommendations increased lactone to 25 mg Oxygen as needed (2) A-fib Current Visit: Yes Status: Chronic Assessment and Plan: Currently in atrial fibrillation history of A. fib continue with beta scott Cardiology recommending resuming anticoagulation as well as adding digoxin (3) DVT prophylaxis Current Visit: No Status: Acute Assessment and Plan: Eliquis (4) S/P ICD (internal cardiac defibrillator) procedure Current Visit: No Status: Acute Assessment and Plan: History of ischemic cardiomyopathy with EF of 3035% Recent ICD placement Repeat cardiac echo Impressions: LVEF 25-30%. Severely dilated left ventricle. Severe global left ventricular systolic dysfunction with regional variations. (5) Ischemic cardiomyopathy Current Visit: No Status: Chronic Assessment and Plan: Known ischemia cardiomyopathy-last cardiac echo 10/09/2018 Impressions: LVEF 30-35%. Severely dilated left ventricle. Severe segmental left ventricular systolic dysfunction. Recent ICD placement on 12/12/2018 Repeat cardiac echo Impressions: LVEF 25-30%. Severely dilated left ventricle. Severe global left ventricular systolic dysfunction with regional variations. Continue with beta scott as well as Lasix increase spell lactone per cardiology's recommendation - Time Spent with Patient Total time spent is greater than 50% in coordination of care (as documented) at patient's floor/unit and/or counseling patient: Internal Medicine: Result - Labs CBC & Chem 7: 12/18/18 00:23 12/18/18 00:23 Labs: Short CBC 12/17/18 12/18/18 Range/Units 12:50 00:23 WBC 6.7 6.4 (4.3-11.1) K/mcL Hgb 13.3 11.7 L D (12.9-16.9) g/dL Hct 41.0 35.0 L (37.5-50.1) % Plt Count 181 171 (140-400) K/mcL Neutrophils # 3.6 2.7 (1.6-8.9) K/mcL BMP 12/17/18 12/18/18 12:50 00:23 Sodium 138 138 Potassium 4.2 3.9 Chloride 103 105 Carbon Dioxide 22 L 21 L BUN 14 12 Creatinine 0.87 0.80 Glucose 125 H 95 Calcium 10.1 9.4 Cardiac Enzymes 12/17/18 12/17/18 12/18/18 Range/Units 12:50 18:45 00:23 Troponin I < 0.03 < 0.03 < 0.03 (< 0.04) ng/mL 12/18/18 Range/Units 05:16 Troponin I < 0.03 (< 0.04) ng/mL - Impressions Impressions Chest CTA 12/17/18 12:42 IMPRESSION: No central or segmental pulmonary embolus. Small right pleural effusion. D/ / 12/17/2018 14:30:24 Darci Putnam MD / Mahogany Medina Interpreting Provider: Darci Putnam MD Chest X-Ray 12/17/18 12:42 IMPRESSION: 1. Pulmonary vascular congestion and borderline cardiomegaly. 2. At least trace right pleural effusion. D/ / Navneet Roy MD / Navneet Roy MD Interpreting Provider: Navneet Roy MD Consult Discharge Plan - Plan Referrals: Shad Macdonald MD [Primary Care Provider] - (2) A-fib Qualifiers: Atrial fibrillation type: chronic Qualified Code(s): I48.2 - Chronic atrial fibrillation
[2018-12-18] MEDS: Furosemide 40 MG/4 ML VIAL IVP SCH ×3 (11:18→18:20)
[2018-12-18] MEDS: Aspirin 81 MG TAB.CHEW PO SCH (11:32)
[2018-12-18] MEDS: Loratadine 10 MG TABLET PO SCH (11:32)
[2018-12-18] MEDS: Metoprolol XL (24 HR) Succ 25 MG TAB.ER.24H PO SCH (11:32)
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
[2018-12-18] MEDS: (Fluticasone/Umeclidin/Vilanter [Trelegy Ellipta 100-62.5-25) IH SCH (12:37)
--- NOTE | 2018-12-18 13:09 | Event Note ---
Date of Encounter: 12/18/18 Time of Encounter: 13:00 - Cardiology Event Note Impressions Chest CTA 12/17/18 12:42 IMPRESSION: No central or segmental pulmonary embolus. Small right pleural effusion. D/ / 12/17/2018 14:30:24 Darci Putnam MD / Mahogany osman Interpreting Provider: Darci Putnam MD Chest X-Ray 12/17/18 12:42 IMPRESSION: 1. Pulmonary vascular congestion and borderline cardiomegaly. 2. At least trace right pleural effusion. D/ / Navneet Roy MD / Navneet Roy MD Interpreting Provider: Navneet Roy MD Echocardiogram Limited Views 12/18/18 08:51 Impressions: LVEF 25-30%. Severely dilated left ventricle. Severe global left ventricular systolic dysfunction with regional variations. Left Ventricular Wall Motion: Rest Echo Findings The apex, apical inferior, mid inferior, basal inferior, apical anterior, mid anterior, basal anterior, apical septal, mid inferior septal, basal inferior septal, apical lateral, mid anterior lateral, basal anterior lateral, mid anterior septal, mid inferior lateral, basal anterior septal and basal inferior lateral [place] were hypokinetic. Findings: Study Quality * Technically adequate exam. ECG Findings * Atrial fibrillation. Left Ventricle * LVEF 25-30%. * Severely dilated left ventricle. * Severe global left ventricular systolic dysfunction with regional variations. Discussed with Dr. Giles, EF is about baseline, no further recommendations, cardiology signing off, reconsult as needed, follow-up arranged.
[2018-12-18] MEDS: *HR* Digoxin 0.125 MG TABLET PO SCH (15:27)
[2018-12-18] MEDS ORDERED: Furosemide 40 MG/4 ML VIAL IVP SCH (17:00)
--- NOTE | 2018-12-18 17:46 | Electrocardiograph Report ---
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
[2018-12-18] MEDS: Apixaban 5 MG TABLET PO SCH (21:05)
[2018-12-19 03:17] LABS: Basophils # 0.1 K/mcL (0.0-0.2); Basophils % 0.9 %; Eosinophils # 0.6 K/mcL (0.0-0.6); Eosinophils % 8.7 %; Hematocrit 37.1 % (37.5-50.1); Hemoglobin 12.1 g/dL (12.9-16.9); Immature Granulocytes % 0.3 % (0-4); Lymphocytes # 2.4 K/mcL (0.6-4.6); Lymphocytes % 35.3 %; Mean Corpuscular HGB Conc 32.6 g/dL (31.6-35.5); Mean Corpuscular Volume 91.8 fL (83.0-100.0); Mean Platelet Volume 10.1 fL (9.4-12.4); Monocytes # 0.5 K/mcL (0.0-1.3); Neutrophils # 3.2 K/mcL (1.6-8.9); Platelet Count 182 K/mcL (140-400); Red Blood Count 4.04 M/mcL (4.19-5.50); Red Cell Distribution Width 15.4 % (11.5-14.5); Segmented Neutrophils % 47.8 %
[2018-12-19 03:36] LABS: BUN/Creatinine Ratio 17 (6-26); Blood Urea Nitrogen 14 mg/dL (8-23); Calcium 9.2 mg/dL (8.6-10.3); Carbon Dioxide 22 mEq/L (23-29); Chloride 108 mEq/L (98-107); Glucose 93 mg/dL (70-105); Osmolality,Calculated 290 (280-300); Potassium 4.2 mEq/L (3.5-5.1); Sodium 140 mEq/L (136-145); eGFR For Non-African Americans > 60 (> 60)
[2018-12-19 07:23] VITALS: BP 92/61
--- NOTE | 2018-12-19 07:56 | Discharge Summary ---
- NOTES TO OUTPATIENT PROVIDER Notes to Outpatient Provider: came in with chf excerbation diuresed seen by cardiology increased spirolactone -placed on digoxin Orders not resulted at time of discharge: Pending orders 12/17/18 12:42 ECG 12 lead ECG [ECG] Stat 12/19/18 06:00 ECG 12 lead ECG [ECG] AM 0600 12/20/18 06:00 ECG 12 lead ECG [ECG] AM 0612/21/18 06:00 ECG 12 lead ECG [ECG] AM 0612/22/18 06:00 ECG 12 lead ECG [ECG] AM 0612/23/18 06:00 ECG 12 lead ECG [ECG] AM 0612/24/18 06:00 ECG 12 lead ECG [ECG] AM 0600 Date of Encounter: 12/19/18 Time of Encounter: 07:55 - Discharge Diagnosis (1) Acute systolic CHF (congestive heart failure), NYHA class 3 Priority: Primary Status: Acute (2) A-fib Priority: Secondary Status: Chronic Qualifiers: Atrial fibrillation type: chronic Qualified Code(s): I48.2 - Chronic atrial fibrillation (3) S/P ICD (internal cardiac defibrillator) procedure Priority: Secondary Status: Acute (4) Ischemic cardiomyopathy Priority: Secondary Status: Chronic Hospital course: Mr. Rod is a 63 year old male extensive past medical history with a recent STEMI on 08/24/18 patient had a NJ to mid LAD PTCA diagonal and staged PCI to RPDA-diagnosed with A. fib and was anticoagulated on Eliquis systolic CHF/ICMP EF of 25-30% repeat echo on 10/09/2018 shows EF of 30-35% with severely dilated left ventricle severe segmental left ventricular systolic dysfunction underwent ICD placement 12/12/2018 advised to hold Eliquis for one-week post device insertion. Presented to [facility] ED ED after experiencing increasing shortness of breath. Denies any lower extremity swelling abdominal swelling or hemoptysis. Denies any chest pain fevers or chills abdominal pain. He did have some orthopnea at night 80s post to be on a CPAP machine but will not receive until December. Currently in atrial fibrillation with controlled rate. Lab work does show an elevated BNP however not as elevated as previous. States he has been taking his medications as prescribed. Cardiac echo was obtained which showed EF of 25-30% cardiology was consulted and added back to digoxin and increased prolactin. Patient was diuresed and is euvolemic at this time. Advised patient to follow-up with primary care provider as well as monitor fluid intake and da sudha weights patient verbalized understanding. - Time Spent with Patient Total time spent providing and/or coordinating discharge services: - Discharge Medications Prescriptions: New Spironolactone [Aldactone] 25 mg PO DAILY #0 tablet Continued Nitroglycerin 0.4 mg SL Q5MIN PRN #30 tab.subl PRN Reason: Chest Pain Aspirin 81 mg PO DAILY #30 tab.chew Clopidogrel [Plavix] 75 mg PO DAILY #30 tablet Furosemide [Lasix] 40 mg PO BIDDIURETIC #60 tablet Metoprolol XL (24 HR) Succ [Toprol Xl] 12.5 mg PO DAILY #15 tab.er.24h Potassium Chloride 40 meq PO DAILY #30 tab.er.prt Atorvastatin Calcium [Lipitor] 80 mg PO HS Omeprazole [PriLOSEC] 20 mg PO QAM Albuterol Sulfate [Ventolin Hfa] 2 puff IH Q4H PRN PRN Reason: Shortness Of Breath Cetirizine HCl [Zyrtec] 10 mg PO DAILY Fluticasone/Umeclidin/Vilanter [Trelegy Ellipta 100-62.5-25] 1 puff IH DAILY Apixaban [Eliquis] 5 mg PO BID #0 Digoxin [Lanoxin] 0.125 mg PO DAILY Discontinued Sulfamethoxazole/Trimeth DS [Bactrim Ds] 1 tab PO BID PRN PRN Reason: See Comments Spironolactone [Aldactone] 12.5 mg PO DAILY Home Medications: Aspirin 81 mg PO DAILY #30 tab.chew 09/09/18 [Rx] Clopidogrel [Plavix] 75 mg PO DAILY #30 tablet 09/09/18 [Rx] Furosemide [Lasix] 40 mg PO BIDDIURETIC #60 tablet 09/09/18 [Rx] Metoprolol XL (24 HR) Succ [Toprol Xl] 12.5 mg PO DAILY #15 tab.er.24h 09/09/18 [Rx] Nitroglycerin 0.4 mg SL Q5MIN PRN #30 tab.subl 09/09/18 [Rx] Potassium Chloride 40 meq PO DAILY #30 tab.er.prt 09/09/18 [Rx] Atorvastatin Calcium [Lipitor] 80 mg PO HS 09/14/18 [History] Albuterol Sulfate [Ventolin Hfa] 2 puff IH Q4H PRN 12/11/18 [History] Cetirizine HCl [Zyrtec] 10 mg PO DAILY 12/11/18 [History] Fluticasone/Umeclidin/Vilanter [Trelegy Ellipta 100-62.5-25] 1 puff IH DAILY 12/11/18 [History] Omeprazole [PriLOSEC] 20 mg PO QAM 12/11/18 [History] Apixaban [Eliquis] 5 mg PO BID #0 12/12/18 [Rx] Digoxin [Lanoxin] 0.125 mg PO DAILY 12/18/18 [History] Spironolactone [Aldactone] 25 mg PO DAILY #0 tablet 12/19/18 [Rx] Allergies/Adverse Reactions: Allergy/AdvReac Type Severity Reaction Status Date / Time vancomycin Allergy See Verified 12/11/18 13:02 Comments Date of admission: 12/17/18 15:47 Primary care physician: Shad Macdonald MD Consults: 12/18/18 07:59 Consult to Nurse Navigator [CONS] Routine Comment: CHF 12/18/18 08:47 Consult to Cardiology [CONS] Routine Comment: Consulting Provider: Cardiology Meri Reason for Consult: CHF recent pacemaker placement Time Notified: 08:51 Call Completed: Yes Discharging clinician: Dalila Lowe Anticipated date of discharge: 12/19/18 - Constitutional Vitals: Temp Pulse Resp BP Pulse Ox 98.1 F 70 16 92/61 96 12/19/18 07:19 12/19/18 07:19 12/19/18 07:19 12/19/18 07:19 12/19/18 07:19 Exam: Skin: Free of rash and discoloration. Eyes: Sclera is white. There is no discharge from eyes. ENMT: Oral/pharyngeal mucosa is normal in appearance. There is no discharge from nose or ears. Respiratory: Normal breath sounds with no crackles and wheezes bilaterally. CV: Heart is irregular with no gallop or murmur. GI: Abdomen is flat and soft with no palpable mass or visceromegaly. : There is no tenderness in patient's flanks bilaterally. Neuro exam: He has good strength in upper and lower extremities. He has normal eye movements. Psychiatric: He has normal affect. His thought process is appropriate to the situation. - Patient Status Disposition: Home, Self-Care Condition: Undetermined Functional capacity at discharge: independent ambulation Overall status at discharge: patient is back to baseline - Discharge Instructions Instructions: Heart Failure (DC) Follow Up With: Shad Macdonald MD [Primary Care Provider] - - Diet and Activity Activity: wear oxygen at night Diet: advance to your usual diet, low salt diet
[2018-12-19] MEDS ORDERED: Furosemide 40 MG TABLET PO SCH (08:00)
[2018-12-19] MEDS: Aspirin 81 MG TAB.CHEW PO SCH (08:49)
[2018-12-19] MEDS: Apixaban 5 MG TABLET PO SCH (08:49)
[2018-12-19] MEDS: *HR* Digoxin 0.125 MG TABLET PO SCH (08:49)
[2018-12-19] MEDS: Loratadine 10 MG TABLET PO SCH (08:49)
[2018-12-19] MEDS: (Fluticasone/Umeclidin/Vilanter [Trelegy Ellipta 100-62.5-25) IH SCH (08:50)
[2018-12-19] MEDS: Metoprolol XL (24 HR) Succ 25 MG TAB.ER.24H PO SCH (08:50)
[2018-12-19] MEDS ORDERED: *HR* Digoxin 0.125 MG TABLET PO SCH ×2 (09:00)
[2018-12-19] MEDS ORDERED: Spironolactone 25 MG TABLET PO SCH (09:00)
--- NOTE | 2018-12-19 13:54 | Electrocardiograph Report ---
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
--- NOTE | 2018-12-22 15:55 | Electrocardiograph Report ---
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
--- NOTE | 2018-12-24 14:02 | Electrocardiograph Report ---
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
== END 2018-12-19 09:02 | disposition home or self-care (01) ==
LOC: EMEROOARM 12:18 → 3BNU 12:18
PROVIDERS: ADMIT Internal Medicine Nephrology; ATTEND Internal Medicine Nephrology